=== PATIENT | female | born 1960 | race Caucasian/White ===

== ENCOUNTER → 2017-05-02 | Outpatient (CLI) | payer OTHER ==
[~2017-05-02] MED LIST: AMLO10 PO; CHOL10002 PO; INSDET100; Novolog100 UNIT/2; PRAV20 PO
== END ==
LOC: LAB SHORT 10:45
DX: E11.9 Type 2 diabetes mellitus without complications (principal)
CPT/HCPCS: 83036

== ENCOUNTER 2018-01-26 10:19 | Day surgery (SDC) | payer OTHER ==
[~2018-01-26] VITALS: Ht 175.3 cm; Wt 93.0 kg
== END 2018-01-26 12:17 | disposition home or self-care (01) ==
LOC: ORSCMMR 10:19 → ORD 11:00 → ORSCMMR 12:17
PROVIDERS: Internal Medicine Gastroenterology
PROC: 0DBK8ZX Excision of Ascending Colon, Via Natural or Artificial Opening Endoscopic, Diagnostic (ICD-10-PCS; principal; 2018-01-26 11:00)
DX: Z12.11 Encounter for screening for malignant neoplasm of colon (principal); D12.2 Benign neoplasm of ascending colon; E11.9 Type 2 diabetes mellitus without complications; Z79.4 Long term (current) use of insulin; Z79.899 Other long term (current) drug therapy
CPT/HCPCS: 82947; 88305; J7120

== ENCOUNTER → 2018-06-17 | Outpatient (CLI) | payer OTHER | END | disposition home or self-care (01) | LOC: PLD 13:40 → LAB SHORT 13:40 | DX: D22.22 Melanocytic nevi of left ear and external auricular canal (principal) | CPT/HCPCS: 88305 ==

== ENCOUNTER → 2018-07-10 | Outpatient (CLI) | payer OTHER | END | disposition home or self-care (01) | LOC: LAB SHORT 12:00 → LAB 12:00 | DX: T14.8XXA Other injury of unspecified body region, initial encounter (principal) | CPT/HCPCS: 87070; 87077; 87186; 87205 ==

== ENCOUNTER 2019-02-03 14:32 | Inpatient (IN) | payer OTHER ==
[~2019-02-03] VITALS: Ht 165.1 cm; Wt 88.2 kg
[~2019-02-03 14:32] MED LIST changes: -INSDET100; +INSDET100 SC; -Novolog100 UNIT/2; +Novolog100 UNIT/2 SC
[2019-02-03 15:19] LABS: BASOPHILS ABSOLUTE AUTO 0.06 K/mm3 (0.00-0.23); BASOPHILS PERCENT AUTO 1 % (0-2); EOSINOPHILS ABSOLUTE AUTO 0.21 K/mm3 (0.00-0.68); EOSINOPHILS PERCENT AUTO 2 % (0-6); Hematocrit 46.2 % (33.0-51.0); Hemoglobin 14.8 g/dL (11.5-16.0); IMMATURE GRAN ABSOLUTE AUTO 0.04 K/mm3 (0.00-0.10); IMMATURE GRAN PERCENT AUTO 0 % (0-1); LYMPHOCYTES ABSOLUTE AUTO 2.92 K/mm3 (0.84-5.20); LYMPHOCYTES PERCENT AUTO 30 % (21-46); MONOCYTES ABSOLUTE AUTO 0.51 K/mm3 (0.16-1.47); MONOCYTES PERCENT AUTO 5 % (4-13); Mean Corpuscular HGB 28.3 pg (26.0-34.0); Mean Corpuscular Volume 88 fL (80-100); Mean Platelet Volume 10.9 fL (9.1-12.4); NEUTROPHILS ABSOLUTE AUTO 5.86 K/mm3 (1.96-9.15); NEUTROPHILS PERCENT AUTO 61 % (41-73); Platelet Count 324 K/mm3 (150-400); RDW Coefficient Variation 12.7 % (11.7-14.2); RDW Standard Deviation 41.3 fL (35.1-46.3); Red Blood Cell Count 5.23 M/mm3 (3.80-5.20)
[2019-02-03 15:36] LABS: International Normalized Ratio 0.93; Prothrombin Time Results 9.9 Sec (9.7-11.5)
[2019-02-03 15:39] LABS: Alanine Aminotransfer (ALT/SGP 27 U/L (12-78); Albumin, Blood 3.5 g/dL (3.4-5.0); Albumin/Globulin Ratio 0.8 (0.8-1.8); Alk Phos 107 U/L (50-136); Anion Gap 6 mmol/L (6-16); Aspartate Aminotrans (AST/SGOT 11 U/L (12-37); Bilirubin, Total 0.3 mg/dL (0.1-1.0); Blood Urea Nitrogen 21 mg/dL (8-24); Bun/Creatinine Ratio 31.6 (12.0-20.0); CO2, Blood 28 mmol/L (21-32); Calcium, Blood 9.8 mg/dL (8.5-10.1); Chloride, Blood 101 mmol/L (98-108); Creatinine, Blood 0.67 mg/dL (0.40-1.00); Globulin, Blood 4.6 g/dL (2.2-4.0); Glomerular Filtration Rate >60 (60-); Glucose, Blood 419 mg/dL (70-99); Potassium, Blood 4.1 mmol/L (3.5-5.5); Sodium, Blood 135 mmol/L (136-145); Total Protein, Blood 8.1 g/dL (6.4-8.2)
[2019-02-03] MEDS ORDERED: ASPI81CH PO (20:33)
[2019-02-03] MEDS ORDERED: ACET500 PO (20:33)
--- NOTE | 2019-02-03 22:31 | NUR ---
PATIENT ARRIVED TO THE FLOOR VIA GURNEY AT 2126. SHE WAS ABLE TO WALK TO THE BED BY A COUPLE OF STEPS. SHE DENIED ANY PAIN OR DISCOMFORT. STATES SHE IS FEELING OK. SHE DOES HAVE SOME LEFT FACIAL DROOP, DIRECTOR OF MARKETING ANALYTICS WERE SLIGHTLY WEAK ON THE LEFT, DORSAL FLEXTION AND EXTENTION WERE NORMAL. BUT WHEN SHE WALKS SHE LEANS TO THE LEFT AND LEFT LEG IS WEAKER. SHE IS ALERT AND ORIENTED, PLEASANT AND COOPERATIVE. ASSESSMENT IS COMPLETE PLEASE SEE CHART. AWAITING INSULIN FROM PHARMACY. GAVE LOVENOX AND STARTED IV FLUIDS, IV WAS PATENT. WILL CONTINUE TO MONITOR.
--- NOTE | 2019-02-03 22:59 | NUR ---
SPOKE TO ABNER ORTEGA REGARDING ADMINASTRATION OF LANTUS AND HUMLOG WITH PATIENT BEING NPO. SHE SAID TO GIVE LANTUS, AND ONLY 5 UNITS OF HUMOLOG SINCE BLOOD SUGARS ARE COMING DOWN ON ITS OWN. WILL RECHECK HER AT MIDNIGHT.
--- NOTE | 2019-02-04 05:26 | NUR ---
SHIFT SUMMARY: PATIENT ARRIVED TO THE FLOOR AROUND 2130 TONIGHT. SHE WAS ADMITTED FOR CVA. SHE IS ALERT AND ORIENTED BUT HAD SEVERAL MINOR DEFICITS ON WHEN SHE CAME TO THE ROOM. SHE HAS A SLIGHT LEFT FACIAL DROOP, MOSTLY SEEN IN THE LIPS. TONGUE TO DEVIATED TO THE LEFT JUST SLIGHTLY, LEFT COMMUNITY HEALTH NURSE WAS SLIGHTLY OFF, DORSAL FLEXTION AND EXTENTION WAS NORMAL. BUT WHEN SHE GOT UP DURING HER TRANSFER NOTED SHE LEANED TO THE LEFT WHEN SHE WALKED, AND DRAGGED HER FOOT SLIGHTLY. SHE ALSO HAS DIFFICULTY SWALLOWING. BLOOD SUGARS FROM ER PRIOR TO TRANSFER WAS 419, 437, AND 365. RECHECK WHEN SHE GOT TO THE FLOOR WAS 302. ABNER TREASURY AGENT WAS NOTIFIED OF TRENDING DOWN BLOOD SUGARS AND ORDERED LANTUS WITH PATIENT NPO STATUS. SHE STATED TO GIVE ONLY 5 UNITS OF HUMOLOG AND GIVE ORDERED DOSE OF LANTUS, MONITORING EVERY 6 HOURS, KEEP NPO. GAVE DOSAGE AND ON RECHECK SHE WAS DOWN TO MID 200'S WILL CHECK THIS AM WELL. SHE HAS NOT HAD ANY FURTHER SIGNS OF A STOKE, AND STATES SHE FEELS FINE, BLOOD PRESSURE ALSO HAS BEEN MAINTAINING AT 170'S. WHICH MD IS AWARE OF, NORVASC WAS ORDERED FOR MORNING BUT DC'D IT AT THIS TIME, WANTING BLOOD PRESSURE TO MAINTAIN WHERE IT IS. PATIENT DENIED ANY CHANGES OR CONCERNS WHILE ON THE FLOOR. IV INFUSED WELL THROUGHOUT THE NIGHT, SHE DID HAVE A MINOR COUGH DUE TO SECREATIONS OFF AND ON THROUGHOUT THE NIGHT WELL. WILL REPORT TO DAY SHIFT RN.
[2019-02-04 05:48] LABS: BASOPHILS ABSOLUTE AUTO 0.05 K/mm3 (0.00-0.23); BASOPHILS PERCENT AUTO 1 % (0-2); EOSINOPHILS ABSOLUTE AUTO 0.28 K/mm3 (0.00-0.68); EOSINOPHILS PERCENT AUTO 3 % (0-6); Hematocrit 45.1 % (33.0-51.0); Hemoglobin 14.5 g/dL (11.5-16.0); IMMATURE GRAN ABSOLUTE AUTO 0.03 K/mm3 (0.00-0.10); IMMATURE GRAN PERCENT AUTO 0 % (0-1); LYMPHOCYTES ABSOLUTE AUTO 3.35 K/mm3 (0.84-5.20); LYMPHOCYTES PERCENT AUTO 41 % (21-46); MONOCYTES ABSOLUTE AUTO 0.58 K/mm3 (0.16-1.47); MONOCYTES PERCENT AUTO 7 % (4-13); Mean Corpuscular HGB 28.8 pg (26.0-34.0); Mean Corpuscular HGB Conc 32.2 g/dL (31.5-36.5); Mean Corpuscular Volume 90 fL (80-100); Mean Platelet Volume 10.5 fL (9.1-12.4); NEUTROPHILS ABSOLUTE AUTO 3.85 K/mm3 (1.96-9.15); NEUTROPHILS PERCENT AUTO 47 % (41-73); Platelet Count 297 K/mm3 (150-400); RDW Coefficient Variation 12.7 % (11.7-14.2); RDW Standard Deviation 41.8 fL (35.1-46.3); Red Blood Cell Count 5.04 M/mm3 (3.80-5.20); White Blood Cell Count 8.14 K/mm3 (4.00-11.30)
[2019-02-04 06:10] LABS: Anion Gap 6 mmol/L (6-16); Blood Urea Nitrogen 15 mg/dL (8-24); Bun/Creatinine Ratio 26.5 (12.0-20.0); CO2, Blood 29 mmol/L (21-32); Calcium, Blood 8.8 mg/dL (8.5-10.1); Chloride, Blood 105 mmol/L (98-108); Cholesterol 315 mg/dL (50-200); Creatinine, Blood 0.57 mg/dL (0.40-1.00); Glomerular Filtration Rate >60 (60-); Glucose, Blood 260 mg/dL (70-99); HDL Cholesterol 35 mg/dL (>39); LDL/HDL RATIO Unable to Calculate; Low Density Lipoprotein Chol Unable to Calculate mg/dL (0-110); Potassium, Blood 3.6 mmol/L (3.5-5.5); Sodium, Blood 140 mmol/L (136-145); Triglycerides 624 mg/dL (30-160); Very Low Density Lipoprot Chol Unable to Calculate mg/dL (6-32)
--- NOTE | 2019-02-04 12:51 | NUR ---
CALLED HOSPITALIST REPORTED GLUCOSE LAB OF 472. I ADMINISTERED 12 UNITS PER MEDIUM SLIDING SCALE AND AWAITED NEW ORDERS. HOSPITALIST CHANGED PT TO HIGH SLIDING SCALE AND FOR NURSE TO ADMINISTER INSULIN DIFFERENCE. PT ASYMPTOMATIC.
--- NOTE | 2019-02-04 15:21 | NUR ---
Echocardiogram using 0.45ml of Definity and 9.0ml of agitated saline contrast was performed.
--- NOTE | 2019-02-04 16:11 | NUR ---
SHIFT SUMMARY MRI PERFORMED TODAY, TWO ECHOS PERFORMED - ONE W/CONTRAST. TELEMETRY SHOWS SINUS RHYTHM @ 88 BPM. LR IS RUNNING @ 100 ML/HR. BLOOD GLUCOSE ELEVATED AT NOON TO 472. PT CHANGED FROM MEDIUM TO HIGH SLIDING SCALE. PERMISSIVE HTN IS BEING ALLOWED TODAY DUE TO STROKE. PHYSICAL THERAPY NOTED LEFT SIDED WEAKNESS W/AMBULATION. BLOOD GLUCOSE DOWN TO 186 AT 1630 HRS. IN STUDYING THIS TYPE OF STROKE I DID NOTE IT CAN EFFECT EMOTIONAL HEALTH AND MOTIVATION. SHE DOES SEEM DETACHED FROM HER SITUATION IN MY OPINION.
--- NOTE | 2019-02-04 19:25 | NUR ---
PATIENT REQUESTED A SLEEP AID WHILE I WAS ASSESSING HER. SHE HAD NONE ORDERED. DR PALACIOS WAS CALLED AND A SLEEP AID REQUESTED. NEW ORDERS FOR MELATONIN 5MG PO X 1 DOSE GIVEN.
--- NOTE | 2019-02-05 04:12 | NUR ---
SHIFT SUMMARY PATIENT IS A/OX4. ABLE TO MAKE NEEDS KNOWN AND FOLLOW DIRECTIONS HOWEVER IS NOTED TO BE FORGETFUL. COOPERATIVE WITH STAFF. DENIES PAIN AND DISCOMFORT. NO ACUTE CHANGES NOTED OR REPORTED THIS SHIFT. WILL CONTINUE TO MONITOR AND PROVIDE CARE NEEDED.
[2019-02-05 05:56] LABS: Anion Gap 4 mmol/L (6-16); Blood Urea Nitrogen 12 mg/dL (8-24); Bun/Creatinine Ratio 20.5 (12.0-20.0); CO2, Blood 31 mmol/L (21-32); Calcium, Blood 8.8 mg/dL (8.5-10.1); Chloride, Blood 103 mmol/L (98-108); Creatinine, Blood 0.59 mg/dL (0.40-1.00); Glomerular Filtration Rate >60 (60-); Glucose, Blood 219 mg/dL (70-99); Potassium, Blood 3.6 mmol/L (3.5-5.5); Sodium, Blood 138 mmol/L (136-145)
[2019-02-05] MEDS ORDERED: BISA5EC PO (11:52)
[2019-02-05] MEDS ORDERED: CLOP75 PO (11:52)
[2019-02-05] MEDS ORDERED: ONDA4 PO (11:53)
--- NOTE | 2019-02-05 13:50 | NUR ---
PT ALERT AND ORIENTED PRIOR TO DISCHARGE. PT INDEPENDENT IN ROOM. IV REMOVED AND PT SHOWERED PRIOR TO DISCHARGE. PT DISCHARGED TO HOME WITH , [facility] PT TO VEHICLE BY WHEELCHAIR. PT PROVIDED WITH DISCHARGE INSTRUCTIONS AND HOME MEDICATIONS. PT VERBALIZED UNDERSTANDING OF DISCHARGE INFORMATION.
== END 2019-02-05 13:43 | disposition home health service (06) | DRG 66 ==
LOC: ER 14:32 → MEDS 14:33
PROVIDERS: Internal Medicine; Nurse Practitioner Acute Care; Physician Assistant; ADMIT Internal Medicine
DX: I63.9 Cerebral infarction, unspecified (principal); R29.810 Facial weakness; I10 Essential (primary) hypertension; E78.5 Hyperlipidemia, unspecified; K02.9 Dental caries, unspecified; E11.65 Type 2 diabetes mellitus with hyperglycemia; G43.909 Migraine, unspecified, not intractable, without status migrainosus; G44.89 Other headache syndrome; Z79.4 Long term (current) use of insulin; Z79.899 Other long term (current) drug therapy
CPT/HCPCS: 36415; 70450; 70496; 70498; 70551; 80048; 80053; 80061; 82947; 83036; 85025; 85610; 92610; 93005; 93010; 96360; 96361; 96372; 97162; 97165; 97530; 97535; 99285-25; C8929; G0378; J1650; J7120; Q9957; Q9967

== ENCOUNTER → 2019-02-26 | Outpatient (CLI) | payer OTHER ==
[~2019-02-26] MED LIST changes: +ACET500 PO; +ASPI81CH PO; +BISA5EC PO; +CLOP75 PO; +ONDA4 PO
[2019-02-28 13:06] LABS: CHLAMYDIA TRACHOMATIS, NAA Negative (Negative); NEISSERIA GONORRHOEAE, NAA Negative (Negative)
[2019-03-02 15:07] LABS: HPV 16 Negative (Negative); HPV 18 Negative (Negative); HPV OTHER HR TYPES Negative (Negative)
== END | disposition home or self-care (01) ==
LOC: LAB SHORT 18:38 → LAB 18:38
PROVIDERS: Nurse Practitioner Family
DX: Z01.419 Encounter for gynecological examination (general) (routine) without abnormal findings (principal)
CPT/HCPCS: 87070; 87077; 87186; 87205; 87491; 87591; 87624; G0123

== ENCOUNTER 2019-06-21 12:50 | Emergency (ER) | payer OTHER ==
[~2019-06-21] VITALS: Ht 165.1 cm; Wt 83.5 kg
[~2019-06-21 12:50] MED LIST changes: -ASPI81CH PO; +Aspirin EC81 MG PO; -PRAV20 PO; +Pravastatin Sod80 MG PO
[2019-06-21 13:47] LABS: Source, Urine Clean Catch
[2019-06-21 13:56] LABS: BASOPHILS ABSOLUTE AUTO 0.05 K/mm3 (0.00-0.23); BASOPHILS PERCENT AUTO 1 % (0-2); EOSINOPHILS ABSOLUTE AUTO 0.26 K/mm3 (0.00-0.68); EOSINOPHILS PERCENT AUTO 3 % (0-6); Hematocrit 41.5 % (33.0-51.0); Hemoglobin 13.2 g/dL (11.5-16.0); IMMATURE GRAN ABSOLUTE AUTO 0.03 K/mm3 (0.00-0.10); IMMATURE GRAN PERCENT AUTO 0 % (0-1); LYMPHOCYTES ABSOLUTE AUTO 3.28 K/mm3 (0.84-5.20); LYMPHOCYTES PERCENT AUTO 39 % (21-46); MONOCYTES ABSOLUTE AUTO 0.55 K/mm3 (0.16-1.47); MONOCYTES PERCENT AUTO 7 % (4-13); Mean Corpuscular HGB 28.9 pg (26.0-34.0); Mean Corpuscular HGB Conc 31.8 g/dL (31.5-36.5); Mean Corpuscular Volume 91 fL (80-100); NEUTROPHILS ABSOLUTE AUTO 4.16 K/mm3 (1.96-9.15); NEUTROPHILS PERCENT AUTO 50 % (41-73); Platelet Count 376 K/mm3 (150-400); RDW Coefficient Variation 12.8 % (11.7-14.2); RDW Standard Deviation 42.2 fL (35.1-46.3); Red Blood Cell Count 4.57 M/mm3 (3.80-5.20); White Blood Cell Count 8.33 K/mm3 (4.00-11.30)
[2019-06-21 14:01] LABS: Bilirubin, Urine Neg (Neg); Blood, Urine 2+ (Neg); Glucose Qualitative, Urine Neg (Neg); Ketones, Urine Neg (Neg); Leukocyte Esterase, Urine Neg (Neg); Nitrite, Urine Neg (Neg); Protein, Urine Neg (Neg); Specific Gravity, Urine 1.015 (1.003-1.022); Urobilinogen, Urine NORM (Normal)
[2019-06-21 14:04] LABS: Appearance, Urine Clear (Clear); Color, Urine Yellow (P-Yellow)
[2019-06-21 14:09] LABS: International Normalized Ratio 0.99; Prothrombin Time Results 10.6 Sec (9.7-11.5)
[2019-06-21 14:10] LABS: Amorphous Light (0-Heavy); Bacteria Few /hpf; Red Blood Cells, Urine 0-2 /hpf (0-2); Squamous Epithelial Cells Rare /hpf (Few); White Blood Cells, Urine 0-2 /hpf (0-5)
[2019-06-21 14:16] LABS: Alanine Aminotransfer (ALT/SGP 28 U/L (12-78); Albumin, Blood 3.1 g/dL (3.4-5.0); Albumin/Globulin Ratio 0.7 (0.8-1.8); Alk Phos 89 U/L (50-136); Anion Gap 7 mmol/L (6-16); Aspartate Aminotrans (AST/SGOT 18 U/L (12-37); Bilirubin, Total 0.3 mg/dL (0.1-1.0); Blood Urea Nitrogen 18 mg/dL (8-24); Bun/Creatinine Ratio 25.3 (12.0-20.0); CO2, Blood 23 mmol/L (21-32); Chloride, Blood 112 mmol/L (98-108); Creatinine, Blood 0.71 mg/dL (0.40-1.00); Globulin, Blood 4.2 g/dL (2.2-4.0); Glomerular Filtration Rate >60 (60-); Glucose, Blood 169 mg/dL (70-99); Sodium, Blood 142 mmol/L (136-145); Total Protein, Blood 7.3 g/dL (6.4-8.2)
[2019-06-21] MEDS ORDERED: ZOLP5 PO (17:59)
[2019-06-22] MEDS ORDERED: INSDET100 SC (14:20)
[2019-06-22] MEDS ORDERED: ZOLP5 PO (14:20)
[2019-06-22] MEDS ORDERED: Aspirin EC81 MG PO (14:22)
[2019-06-22] MEDS ORDERED: DULCOLAX5 MG PO (17:02)
[2019-06-22] MEDS ORDERED: MECL12.5 PO (17:03)
[2019-06-22] MEDS ORDERED: MELATONIN 5 MG1 EACH PO (17:04)
[2019-06-22] MEDS ORDERED: GABA100 PO (17:05)
== END 2019-06-21 15:41 | disposition home or self-care (01) ==
LOC: ER 12:50
PROVIDERS: Emergency Medicine; Physician Assistant
DX: R53.1 Weakness (principal); Z79.899 Other long term (current) drug therapy; Z79.82 Long term (current) use of aspirin; Z79.4 Long term (current) use of insulin; Z86.73 Personal history of transient ischemic attack (TIA), and cerebral infarction without residual deficits
CPT/HCPCS: 36415; 70450; 71045; 80053; 81001; 82947; 85025; 85610; 93005; 93010; A9270

== ENCOUNTER 2019-06-22 10:47 | Inpatient (IN) | payer OTHER ==
[~2019-06-22] VITALS: Ht 165.1 cm; Wt 87.7 kg
[~2019-06-22 10:47] MED LIST changes: +ATOR80 PO; -CHOL10002 PO; -Pravastatin Sod80 MG PO; +VITAMIN D31000 UNI1 PO; +ZOLP5 PO
[2019-06-22 11:12] LABS: BASOPHILS ABSOLUTE AUTO 0.04 K/mm3 (0.00-0.23); BASOPHILS PERCENT AUTO 1 % (0-2); EOSINOPHILS ABSOLUTE AUTO 0.16 K/mm3 (0.00-0.68); EOSINOPHILS PERCENT AUTO 2 % (0-6); Hemoglobin 12.7 g/dL (11.5-16.0); IMMATURE GRAN ABSOLUTE AUTO 0.03 K/mm3 (0.00-0.10); IMMATURE GRAN PERCENT AUTO 0 % (0-1); LYMPHOCYTES ABSOLUTE AUTO 2.87 K/mm3 (0.84-5.20); LYMPHOCYTES PERCENT AUTO 33 % (21-46); MONOCYTES ABSOLUTE AUTO 0.51 K/mm3 (0.16-1.47); MONOCYTES PERCENT AUTO 6 % (4-13); Mean Corpuscular HGB 28.7 pg (26.0-34.0); Mean Corpuscular HGB Conc 31.8 g/dL (31.5-36.5); Mean Corpuscular Volume 90 fL (80-100); Mean Platelet Volume 9.9 fL (9.1-12.4); NEUTROPHILS ABSOLUTE AUTO 5.08 K/mm3 (1.96-9.15); NEUTROPHILS PERCENT AUTO 59 % (41-73); Platelet Count 362 K/mm3 (150-400); RDW Coefficient Variation 12.7 % (11.7-14.2); RDW Standard Deviation 42.1 fL (35.1-46.3); Red Blood Cell Count 4.43 M/mm3 (3.80-5.20); White Blood Cell Count 8.69 K/mm3 (4.00-11.30)
[2019-06-22 11:23] LABS: Alanine Aminotransfer (ALT/SGP 25 U/L (12-78); Albumin, Blood 3.1 g/dL (3.4-5.0); Albumin/Globulin Ratio 0.7 (0.8-1.8); Alk Phos 87 U/L (50-136); Anion Gap 7 mmol/L (6-16); Aspartate Aminotrans (AST/SGOT 17 U/L (12-37); Bilirubin, Total 0.4 mg/dL (0.1-1.0); Blood Urea Nitrogen 17 mg/dL (8-24); Bun/Creatinine Ratio 22.4 (12.0-20.0); CO2, Blood 24 mmol/L (21-32); Calcium, Blood 9.1 mg/dL (8.5-10.1); Chloride, Blood 112 mmol/L (98-108); Creatinine, Blood 0.76 mg/dL (0.40-1.00); Globulin, Blood 4.2 g/dL (2.2-4.0); Glomerular Filtration Rate >60 (60-); Glucose, Blood 100 mg/dL (70-99); Potassium, Blood 3.9 mmol/L (3.5-5.5); Sodium, Blood 143 mmol/L (136-145); Total Protein, Blood 7.3 g/dL (6.4-8.2)
[2019-06-22] MEDS ORDERED: INSDET100 SC (14:20)
[2019-06-22] MEDS ORDERED: ZOLP5 PO (14:20)
[2019-06-22] MEDS ORDERED: Aspirin EC81 MG PO (14:22)
--- NOTE | 2019-06-22 16:30 | NUR ---
PT ARRIVED TO ROOM 306 FROM ED WITH FAMILY IN ATTENDENCE. TRANSPORT ATTENDENT REPORTED PTS BLOOD SUGAR WAS 57 JUST PRIOR TO COMING UP AND HE GAVE HER ORANGE JUICE. WILL RECHECK SOON.
[2019-06-22] MEDS ORDERED: DULCOLAX5 MG PO (17:02)
[2019-06-22] MEDS ORDERED: MECL12.5 PO (17:03)
[2019-06-22] MEDS ORDERED: MELATONIN TR 51 EAC2 PO (17:04)
[2019-06-22] MEDS ORDERED: GABA100 PO (17:05)
--- NOTE | 2019-06-22 18:39 | NUR ---
SHIFT SUMMARY ABLE TO ANSWER QUESTIONS BUT SPEECH SLURRED AND FAMILY ASSISTS WITH QUESTIONS. R SIDE WEAKER THAN L WITH HAND TIRE DESIGN ENGINEER. REPORTS BEING HUNGRY BUT CURRENTLY NPO AND NEEDS REMINDING OF THIS. SPOKE WITH MD ABOUT LOW BLOOD SUGARS AND NO TREATMENT.
--- NOTE | 2019-06-22 20:00 | NUR ---
2000-ASSUMED CARE OF THE PATIENT. CONSTANTINE IS AOX3 PLEASANT AND COOPERATIVE. IV INFUSING INTO LEFT AC FEILD START. DENIES ANY PAIN OR DISCOMFORT. HAS RIGHT SIDED WEAKNESS, GREATER IN THE UPPER ARMS THEN IN THE LEGS. SHE IS ABLE TO RESTAURANT DELIVERY DRIVER SLIGHTLY. SMILE WITH DROOP TO THE RIGHT, DORSAL FLEXTION AND EXTENTION IS EQUAL. REPORTS THIS IS AN INCREASE FROM HER PREVIOUS STROKE SHE HAS HAD. SPEECH IS SLURRED. BLOOD SUGARS HAVE BEEN RUNNING LOW ALL DAY. WILL MONITOR THROUGHOUT THE NIGHT. CALL LIGHT IN REACH.
--- NOTE | 2019-06-23 00:35 | NUR ---
BLOOD SUGAR IS NOW 69, CALLED ABNER TACK PICKER REGARDING TREATMENT PLAN FOR HYPOGLYCEMIA. NEW ORDERS NOTED FOR INCREASE IN RATE FOR IV FLUIDS TO 100ML/HR AND GLUCOSE IV, HYPOGLYCEMIA TX. GOT OFF PHONE AND INCREASED IV FLUIDS TO 100ML/HR. ASSISTED PATIENT ONTO BEDPAN, CALL LIGHT GIVEN.
[2019-06-23 05:05] LABS: BASOPHILS ABSOLUTE AUTO 0.06 K/mm3 (0.00-0.23); BASOPHILS PERCENT AUTO 1 % (0-2); EOSINOPHILS ABSOLUTE AUTO 0.28 K/mm3 (0.00-0.68); EOSINOPHILS PERCENT AUTO 3 % (0-6); Hematocrit 41.8 % (33.0-51.0); Hemoglobin 13.4 g/dL (11.5-16.0); IMMATURE GRAN ABSOLUTE AUTO 0.01 K/mm3 (0.00-0.10); IMMATURE GRAN PERCENT AUTO 0 % (0-1); LYMPHOCYTES ABSOLUTE AUTO 4.25 K/mm3 (0.84-5.20); LYMPHOCYTES PERCENT AUTO 38 % (21-46); MONOCYTES ABSOLUTE AUTO 0.76 K/mm3 (0.16-1.47); MONOCYTES PERCENT AUTO 7 % (4-13); Mean Corpuscular HGB 28.5 pg (26.0-34.0); Mean Corpuscular HGB Conc 32.1 g/dL (31.5-36.5); Mean Corpuscular Volume 89 fL (80-100); NEUTROPHILS PERCENT AUTO 52 % (41-73); Platelet Count 383 K/mm3 (150-400); RDW Coefficient Variation 12.4 % (11.7-14.2); RDW Standard Deviation 40.8 fL (35.1-46.3); White Blood Cell Count 11.16 K/mm3 (4.00-11.30)
[2019-06-23 05:38] LABS: Alanine Aminotransfer (ALT/SGP 29 U/L (12-78); Albumin, Blood 3.3 g/dL (3.4-5.0); Albumin/Globulin Ratio 0.7 (0.8-1.8); Alk Phos 95 U/L (50-136); Anion Gap 5 mmol/L (6-16); Aspartate Aminotrans (AST/SGOT 19 U/L (12-37); Bilirubin, Total 0.7 mg/dL (0.1-1.0); Blood Urea Nitrogen 9 mg/dL (8-24); Bun/Creatinine Ratio 16.8 (12.0-20.0); CHOL/HDL RATIO 8.1; CO2, Blood 25 mmol/L (21-32); Calcium, Blood 8.8 mg/dL (8.5-10.1); Chloride, Blood 111 mmol/L (98-108); Cholesterol 258 mg/dL (50-200); Creatinine, Blood 0.54 mg/dL (0.40-1.00); Globulin, Blood 4.5 g/dL (2.2-4.0); Glomerular Filtration Rate >60 (60-); Glucose, Blood 104 mg/dL (70-99); HDL Cholesterol 32 mg/dL (>39); LDL/HDL RATIO 5.2; Low Density Lipoprotein Chol 167 mg/dL (0-110); Potassium, Blood 3.3 mmol/L (3.5-5.5); Sodium, Blood 141 mmol/L (136-145); Total Protein, Blood 7.8 g/dL (6.4-8.2); Triglycerides 295 mg/dL (30-160); Very Low Density Lipoprot Chol 59 mg/dL (6-32)
--- NOTE | 2019-06-23 06:29 | NUR ---
SHIFT SUMMARY: CONSTANTINE HAS HAD A ROUGH NIGHT, SHE HAS SEVERE FREQUENT URINATION THAT HAS KEPT HER UP ALL NIGHT. SHE LITERALLY HAS VOIDED ABOUT EVERY 30MIN THIS SHIFT. SHE IS ABLE TO USE THE CALL LIGHT FOR THE BED HINES. SHE STATES THIS IS HER NORM AT HOME. ATTENDS HAS REMAINED DRY. BLOOD SUGARS HAVE BEEN ON THE LOW SIDE RANGING 69-104. ABNER ORTEGA WAS CALLED FOR HYPOGLYCEMIA TREATMENT, ORDERS WERE OBTAINED, SHE WAS ALSO INFORMED OF RIGHT ARM SPASMS THIS SHIFT. PATIENT REPORTS THE SPASMS HAS BEEN FOR A WEEK NOW BUT GET PAINFUL. FLEXERIAL WAS ORDERED X1. THIS HELPED TO RELEIVE THEM BUT STARTED BACK UP THIS AM. SHE REPORTS PAIN ALONG WITH THE SPASMS. GAVE WARM BLANKETS THAT HELPED. NO INSULIN WAS GIVEN TONIGHT. BLOOD PRESSURE WAS SLIGHTLY ON THE HIGH SIDE BUT MD WAS NOTIFIED OF IT. NO OTHER CHANGES OCCURRED THIS SHIFT.
--- NOTE | 2019-06-23 18:33 | NUR ---
SHIFT SUMMARY PT UP WITH PT/OT AND WORKED WITH KENNEL WORKER. TOLERATING A MECHANICAL SOFT DIET. FAMILY REPORTS PT DOESN'T TOLERATE DAIRY OF ANY KIND. ADJUSTED DIET ACCORDINGLY. 1-2 PERSON ASSIST WITH TRANSFERS FROM COMMODE TO BED AND BACK AGAIN USING A GAIT BELT. R HAND WAS WEAKER THAN YESTERDAY WHEN TESTED. SPEECH REMAINS SLUURED. BLADDER SCANNED AFTER VOIDING 200ML AND HAD 243 IN SCAN. MD NOTIFIED. WAS SCANNED LAST EVENING FOR 285 PVR SO APPEARS TO BE LESS TODAY. NO SPASMS OR CRAMPS SEEN ON R SIDE.
--- NOTE | 2019-06-24 04:07 | NUR ---
0259 PT TRANSFERED TO ROOM 346 FROM [facility]. REPORT CALLED TO JESSICA KIRK. PT IS AAOX4. RESP E/U. VSS. APPEARS IN NO ACUTE DISTRESS. PT IS ADMITTED WITH STROKE AND HAS WEAKNESS TO R SIDE. SHE IS IMPULSIVE AND WAS REPEATEDLY ATTEMPTING TO CLIMB OUT OF BED. R LEG WEAKNESS. SHE IS A FALL RISK. PT COMLAINED THROUGHOUT THE NIGHT OF NEEDING TO VOID. EACH TIME SHE ATTEMPTED TO VOID SHE ONLY PRODUCED ABOUT 50ML. BLADDER SCANNED AND FOUND SHE HAD 471 POST VOID. OBTAINED ORDER FOR PRN BLADDER SCAN AND STRAIGHT CATH. PT THEN ATTEMPTED TO VOID AGAIN PRODUCING 50ML THEN STRAIGHT CATH'D PT AND OBTAINED 350ML. AFTER THIS PT CONTINUED TO TRY TO CLIMB OUT OF BED. TRANSFERED.
[2019-06-24 05:07] LABS: Hematocrit 40.6 % (33.0-51.0); Hemoglobin 13.3 g/dL (11.5-16.0); Mean Corpuscular HGB 28.7 pg (26.0-34.0); Mean Corpuscular HGB Conc 32.8 g/dL (31.5-36.5); Mean Corpuscular Volume 88 fL (80-100); Mean Platelet Volume 9.9 fL (9.1-12.4); Platelet Count 350 K/mm3 (150-400); RDW Coefficient Variation 12.3 % (11.7-14.2); RDW Standard Deviation 39.4 fL (35.1-46.3); Red Blood Cell Count 4.64 M/mm3 (3.80-5.20); White Blood Cell Count 9.47 K/mm3 (4.00-11.30)
[2019-06-24 05:41] LABS: Albumin, Blood 3.2 g/dL (3.4-5.0); Anion Gap 7 mmol/L (6-16); Blood Urea Nitrogen 13 mg/dL (8-24); Bun/Creatinine Ratio 20.2 (12.0-20.0); CO2, Blood 24 mmol/L (21-32); Calcium, Blood 8.7 mg/dL (8.5-10.1); Chloride, Blood 108 mmol/L (98-108); Creatinine, Blood 0.64 mg/dL (0.40-1.00); Glomerular Filtration Rate >60 (60-); Glucose, Blood 200 mg/dL (70-99); Phosphorus, Blood 3.5 mg/dL (2.5-4.9); Potassium, Blood 3.6 mmol/L (3.5-5.5); Sodium, Blood 139 mmol/L (136-145)
--- NOTE | 2019-06-24 06:01 | NUR ---
PATIENT TRANSFERRED FROM ROOM 306. PT IS AOX3 BUT WITH CONFUSION. SHE IS IMPULSIVE AND WANTS TO GET OOB FREQUENTLY TO USE THE COMMODE. UNFORTUNATELY HER RIGHT LEG SHE IS UNABLE TO LIFT IT TO TAKE A STEP. SHE ALSO SEEMS VERY BOBBLE-HEADED WHEN SITTING ON THE COMMODE. SHE BECAME FATIGUED SHE VOIDED 200 AT ABOUT 330 AND ABOUT 150ML AT 0540 AM
--- NOTE | 2019-06-24 07:30 | NUR ---
PT. LYING IN BED A&O. HAS SLURRED SPEECH WITH RIGHT-SIDED FACIAL DROOP. TONGUE DEVIATES TO THE RIGHT. BUE UNEQUAL BILATERALLY RIGHT WEAKER THAN THE LEFT. UNABLE TO USE RUE TO FEED SELF. PT. PLEASANT AND COOPERATIVE.
--- NOTE | 2019-06-24 15:27 | NUR ---
Echocardiogram completed.
--- NOTE | 2019-06-24 15:28 | NUR ---
Echocardiogram completed.
--- NOTE | 2019-06-24 18:11 | NUR ---
PT. UP IN CHAIR FOR DINNER. GANG PUSHER FEEDING PT. FAMILY PRESENT IN ROOM. PT. ABLE TO E COMMERCE MARKETING ANALYST FWW WITH RIGHT HAND THIS AFTERNOON. PT. STARTED HAVING MUSCLE SPASMS ON HER RIGHT SIDE, FLEXERIL GIVEN AND RIGHT SIDE WRAPPED WITH WARMED BLANKET. PT. HAS VOIDED SEVERAL TIMES TODAY AND BLADDER SCANS SHOW LESS THAN 200.
--- NOTE | 2019-06-25 04:43 | NUR ---
COTTON WEIGHER SUMMARY NO ACUTE CHANGES THIS SHIFT. PT AAOX3 AND PLEASANT. STILL HAVING SOME R SIDED WEAKNESS WITH FACIAL DROOP. COMMERCIAL INTELLIGENCE MANAGER STRENGTH NOTICABLY WEAKER BUT MOVEMENT/STRENGTH OF LEGS/FEET IMPROVED. PT STILL A STRONG 2 PERSON ASSIST WITH AGAIT BELT AND FWW. PT SHUFFLES WHEN AMBULATING AND REQUIRES FREQUENT VERBAL CUES. PT HAS USED THE BED HINES SEVERAL TIMES TONIGHT AND CONTINUES TO HAVE TO URINATE FREQUENTLY. VSS, WILL CONTINUE TO MONITOR.
--- NOTE | 2019-06-25 07:45 | NUR ---
PT QUITE PLEASANT TALKATIVE. SPEACH IS SLURRED, HARD TO UNDERSTAND. FULL SENTENCES, A/O X3 , RT SIDE DROOP, RT SIDE WEAKNESS ARMS AND LEGS. GROSS MOVEMENT. H/R REG, NO MURMER NOTED PER TELE NSR AT 92, LUNGS CLEAR, RESP EASY,, UNLABORED. ON RA. BT X4 LAST BM YET PER PT. NORMAL. VOIDS BSC WITH 2 MAX ASSIST . BED IN LOW POSITION, CALL LITE IN REACH. SOME IMPULSIVITY REPORTED, BED ALARM ON FOR SAFETY
--- NOTE | 2019-06-25 13:19 | NUR ---
PT CBG 253 SHOULD BE 4 U SHORT ACTING INSULIN. PT NPO FOR PROCEDURE. CALLED DR HEBERT. ORDER FOR 2U. DONE
--- NOTE | 2019-06-25 15:16 | NUR ---
PT TO H/CTR FOR ESTHER
--- NOTE | 2019-06-25 16:13 | NUR ---
PT TOLERATED ESTHER PROCEDURE WELL. VSS. NADN. PT DENIES NEEDS. PT AXO X4. REPORT TO KATHYA MITCHELL RN TO ASSUME CARE. FULL REPORT CALLED TO VINICIUS GIANG RN WITH [facility].
--- NOTE | 2019-06-25 18:50 | NUR ---
PT PLEASANT TODAY WENT FOR ESTHER AT 1510. RETURNED AT 1630 REPORT FROM KASI KIRK. H/CENTER.PT DID WELL.FULLY ALERT ORIENT. VSS PT CONTINUES TO SLUR/GARBLE WORDS. QUITE TALKATIVE. FAMILY IN ROOM THIS VERONICA. DENIES PAIN. PASSED BEDSIDE SWALLOW AFTER PROCEDURE. EATING [facility] SOFT DIET TONIGHT. TAKING TIME. SITTING UP STRAIGHT FOR PRECAUTIONS. NO OTHER CONCERNNS AT THIS TIME BED IN LOW POSITION, CALL LITE IN [facility], CALLS APPROP
--- NOTE | 2019-06-26 04:45 | NUR ---
TRAVEL ACCOMMODATION INSPECTOR SUMMARY NO ACUTE CHANGES THIS SHIFT. PT AAOX4 AND VERY PLEASANT. SAP BASIS CONSULTANT STRENGTH STILL WEAK ON R SIDE BUT DOES SEEM SLIGHTLY IMPROVED. PT STATES SHE WAS ABLE TO AMBULATE A BIT EASIER DURING DAY SHIFT COMPARED TO YESTERDAY. VSS, WILL CONTINUE TO MONITOR.
[2019-06-26 06:04] LABS: BASOPHILS ABSOLUTE AUTO 0.07 K/mm3 (0.00-0.23); BASOPHILS PERCENT AUTO 1 % (0-2); EOSINOPHILS ABSOLUTE AUTO 0.39 K/mm3 (0.00-0.68); EOSINOPHILS PERCENT AUTO 4 % (0-6); Hematocrit 41.9 % (33.0-51.0); Hemoglobin 13.8 g/dL (11.5-16.0); IMMATURE GRAN ABSOLUTE AUTO 0.03 K/mm3 (0.00-0.10); IMMATURE GRAN PERCENT AUTO 0 % (0-1); LYMPHOCYTES ABSOLUTE AUTO 4.02 K/mm3 (0.84-5.20); LYMPHOCYTES PERCENT AUTO 39 % (21-46); MONOCYTES ABSOLUTE AUTO 0.73 K/mm3 (0.16-1.47); MONOCYTES PERCENT AUTO 7 % (4-13); Mean Corpuscular HGB 29.4 pg (26.0-34.0); Mean Corpuscular HGB Conc 32.9 g/dL (31.5-36.5); Mean Corpuscular Volume 89 fL (80-100); Mean Platelet Volume 10.1 fL (9.1-12.4); NEUTROPHILS ABSOLUTE AUTO 4.97 K/mm3 (1.96-9.15); NEUTROPHILS PERCENT AUTO 49 % (41-73); Platelet Count 386 K/mm3 (150-400); RDW Coefficient Variation 12.4 % (11.7-14.2); RDW Standard Deviation 40.7 fL (35.1-46.3); White Blood Cell Count 10.21 K/mm3 (4.00-11.30)
[2019-06-26 06:44] LABS: Anion Gap 8 mmol/L (6-16); Blood Urea Nitrogen 17 mg/dL (8-24); Bun/Creatinine Ratio 21.1 (12.0-20.0); CO2, Blood 25 mmol/L (21-32); Calcium, Blood 9.3 mg/dL (8.5-10.1); Chloride, Blood 109 mmol/L (98-108); Creatinine, Blood 0.81 mg/dL (0.40-1.00); Glomerular Filtration Rate >60 (60-); Glucose, Blood 129 mg/dL (70-99); Potassium, Blood 3.9 mmol/L (3.5-5.5); Sodium, Blood 142 mmol/L (136-145)
--- NOTE | 2019-06-26 08:00 | NUR ---
PT PLEASANT COOP A.O. DENIES PAIN AT THIS TIME. PT CHEERFUL TALKATIVE. SOME GARBLED SLURRED SPEACH, IMPROVED FROM YEST. WEAKNESS ON RT. MOVES LEG AND FOOT UP FROM BED . RT HAND AND ARM IS MORE GROSS MOVEMENT. SQEEZE STRENGTH PERHAPS 1/3 TO 1/4 OF LEFT. SOME RT DROOP FACIAL. H/R REG, NO MURMER NOTED. PER TELE NSRAT 88. LUNGS CLEAR, RESP EASY UNLABORED. ON R.A. BT X4 LAST BM YEST PER PT. VOIDS 2 MAX ASST WITH GAIT BELT BSC. BED IN LOW POSITION,C ALL LITE IN [facility], CALLS APPROP. BED ALARM ON FOR SAFETY FOR IMPULSIVITY
--- NOTE | 2019-06-26 12:49 | NUR ---
CALLED DR HEBERT. ADVISED DR SHAYLEE Christopher/Maria Del Carmen ASA THIS AM. HE RESTARTING. IS AWARE AND HAS BEEN DISCUSSED. OKAY TO RESTART
--- NOTE | 2019-06-26 17:36 | NUR ---
PT PLEASANT COOP A/O. GAVE WASH CLOTH TO KEEP WORKING SQUEEZING RT HAND. REMAINS QUITE TALKATIVE. CONTINUES TO HAVE SOME GARBLED/SLURRED SPEACH. INDICATES IMPROVEMENT NOTED. MORE CLEAR SPEACH. ENCOURAGED EXERCISING AND PUSHING TO GET MORE HAND MOVEMENT. SHE WANTS MUCH IMPROVEMENT POSSIBLE. PRESENTS GOOD ATTITUDE. VERY PLEASANT FAMILY. NO OTHER CONCERNS AT THIS TIME. BED IN LOW POSITION, CALL LITE IN REACH, CALLS APPROP.BED ALARM ON FOR SAFETY FOR IMPULSIVITY
--- NOTE | 2019-06-27 04:47 | NUR ---
SHIFT SUMMARY PT HAS HAD A RESTFUL NIGHT. STILL WITH RIGHT SIDED WEAKNESS AND OCCASIONAL MUSCLE SPASMS IN THE RIGHT ARM. PT IS ABLE TO ROLL WELL ON AND OFF THE BEDPAN. SHE IS ALSO ABLE TO LIFT HIPS. HAS NOT GOTTEN OOB. SPEECH IS STILL SLURRED. PT A/OX4, NO ACUTE CHANGES IN NEURO ASSESSMENT. PT FEELS THAT SHE NEEDS STOOL SOFTNERS. HOWEVER, SHE HAS HAD TWO SMALL SOFT BM'S THIS SHIFT. WILL NOTIFY DAYSHIFT RN FOR ADDITIONAL FOLLOW UP. ASSESSMENT UNCHANGED. BED IN LOWEST POSITION, CALL LIGHT WITHIN REACH. WILL CONTINUE TO MONITOR AND REPORT TO ONCOMING RN.
--- NOTE | 2019-06-27 07:30 | NUR ---
PT PLEASANT COOP, CONTINUES TO TALK MUCH. CONTINUES TO HAVE SLURRED/GARBLED SPEACH. MUCH SAME YEST. RT HAND WEAK, PERHAPS 10 % CLOTH BOOKER COMPARED TO LEFT. CAN CLOSE HAND SOME, BUT VERY LITTLE. GAVE PT WASHCLOTH ROLLED UP TO WORK AIR VICE MARSHAL ON. CAN LIFT ARM SOME. GROSS MOVEMENT ONLY. LEG BETTER THAN ARM FOR STRENGTH. PT ABLE AMBULATE WITH 2 MAX ASST TO BSC OR CHAIR LAST VERONICA. H/R REG, NO MURMER NOTED. PER TELE: NSR AT 91. LUNGS CLEAR RESP EASY, UNLABORED ON R.A. BT X4 LAST BM YST. VOIDS PER BSC, 2 MAX ASST TO STAND WITH FWW. CAN USE BEDPAN. BED IN LOW POSITION, CALL LITE IN REACH, CALLS APPROP, BED ALARM ON FOR SAFETY FOR IMPULSIVITY
--- NOTE | 2019-06-27 17:50 | NUR ---
PT PLEASANT TODAY. DENIES PAIN. FAMILY IN THIS AFTERNOON. RT HEEL FINISHER REMAINS QUITE WEAK PERHAPS 10% STRENGTH OF LEFT. VERY WEAK TO CLOSE. REMAINS GARBLED SLURRED SPEACH. BUT QUITE TALKATIVE. 2 ASST TO CHAIR FOR MEALS. NO OTHER CONCERNS AT THIS TIME. BED IN LOW POSITION, CALL LITE IN REACH, CALLS APPROP
--- NOTE | 2019-06-28 04:33 | NUR ---
SHIFT SUMMARY PT HAS RESTED OFF AND ON THIS SHIFT. OCCASIONAL MUSCLE SPASMS IN RIGHT ARM RELIEVED WITH FLEXERIL. PT HAS BEEN OOB THIS SHIFT 2PA TO THE [facility] THERE CONTINUES TO BE SIGNIFICANT WEAKNESS TO RIGHT SIDE. GROSS MOVEMENT TO RIGHT SIDE AND WEAK HAND TOUCH UP PAINTER IN RIGHT HAND. PT DRAGS RIGHT FOOT WHEN OOB. PT SPEECH REMAINS SLURRED AND GARBLED. SHE A/OX4. HYPERTENSIVE, TRENDING AROUND HER BASELINE WITH RECHECKS. NO ACUTE CHANGES TO REPORT OVERNIGHT. BED IN LOWEST POSITION, CALL LIGHT WITHIN REACH. WILL CONTINUE TO MONITOR AND REPORT TO ONCOMING RN.
--- NOTE | 2019-06-28 18:29 | NUR ---
SHIFT SUMMARY. A&OX4, PLEASANT AND COOPERATIVE, AWARE OF LIMITATIONS, USES CALL LIGHT APPROPRITALY. NO NEW CHANGES IN NEURO ASSESSMENT. PT DENIES SOB, N/V, AND PAIN. AWAITING INSURANCE APPROVAL FOR SNF PLACEMENT. NO NEW CHANGES OR CONCERNS.
--- NOTE | 2019-06-29 05:19 | NUR ---
SHIFT SUMMARY AOX4. ANSWERS ALL QUESTIONS APPROPRIATELY. HAS SLURRED SPEECH. SLEPT WELL T/O NIGHT. HAS R SIDED FACIAL DROOP WITH R SIDE WEAKNESS, IS ABLE TO GROSSLY MOVE R LEG & ARM. REPORTS MUSCLE SPASMS IN R ARM & LEG & STATES FLEXERIL HELPS. PT REPORTED MILD 3/10 HEADACHE LAST NIGHT, CALLED HOSPITALIST IRINEO Kerr & SHE ORDERED TYLENOL, PT REPORTED RELIEF. MEDS GIVEN IN APPLESAUCE. CBG @ WAS 322, PROVIDED COVERAGE PER ORDERS. REPOSITIONED PRN. CALL LIGHT IN REACH. WCTM.
--- NOTE | 2019-06-29 17:02 | NUR ---
SHIFT SUMMARY. PT WITH NO CHANGES TO CURRENT NEURO STATUS. PT DENIES PAIN, SOB, N/V. GOOD MEAL INTAKE. NO NEW CHANGES OR CONCERNS. AWAITING PLACEMENT.
--- NOTE | 2019-06-30 04:17 | NUR ---
SHIFT SUMMARY NO ACUTE CHANGES THIS SHIFT. AOX4. VSS. ANSWERS QUESTIONS APPROPRIATELY. HAS R SIDE WEAKNESS, W/VERY MINIMAL GROSS MOVEMENT IN R ARM & LEG. PT STATES 5/10 PAIN FROM MUSCLE SPASMS IN R ARM/LEG, ALONG W/OCCASIONAL INVOLUNTARY MOVEMENTS OF R ARM & REPORTS RELIEF W/FLEXERIL. NO S/S OF N/V OR DYSPNEA. TELE IN PLACE RUNNING NSR. CALL LIGHT IN REACH & PT MAKES NEEDS KNOWN. WAITING ON PLACEMENT. WCTM.
[2019-06-30 05:42] LABS: Anion Gap 7 mmol/L (6-16); Blood Urea Nitrogen 24 mg/dL (8-24); Bun/Creatinine Ratio 37.6 (12.0-20.0); CO2, Blood 24 mmol/L (21-32); Calcium, Blood 9.3 mg/dL (8.5-10.1); Chloride, Blood 107 mmol/L (98-108); Creatinine, Blood 0.64 mg/dL (0.40-1.00); Glomerular Filtration Rate >60 (60-); Glucose, Blood 242 mg/dL (70-99); Sodium, Blood 138 mmol/L (136-145)
[2019-06-30 06:53] LABS: Source, Urine Catheter
[2019-06-30 06:55] LABS: Appearance, Urine Clear (Clear); Bilirubin, Urine Neg (Neg); Blood, Urine 5+ (Neg); Color, Urine Yellow (P-Yellow); Glucose Qualitative, Urine 4+ (Neg); Ketones, Urine Neg (Neg); Leukocyte Esterase, Urine 1+ (Neg); Nitrite, Urine Neg (Neg); Protein, Urine 2+ (Neg); Urobilinogen, Urine NORM (Normal)
[2019-06-30 07:06] LABS: Bacteria Many /hpf; Red Blood Cells, Urine 50-100 /hpf (0-2); Squamous Epithelial Cells Rare /hpf (Few)
--- NOTE | 2019-06-30 07:25 | NUR ---
FREQUENTLY URINATING PT HAS BEEN NEEDING TO FREQUENTLY URINATE, EVERY 30MIN SINCE AROUND 0200 THIS AM. SHE HAS BEEN CONTINENT, BUT ONLY VOIDING 100ML EACH TIME. AT 0600 PT WAS BLADDER SCANNED & HAD >518ML IN BLADDER. POST VOID OF 100ML, BLADDER SCAN REPORTED 490ML IN BLADDER. I STRAIGHT CATHED PT & GOT 560ML URINE OUT. POST STRAIGHT CATH PT HAD 35ML URINE IN BLADDER. PT DENIES BURNING FEELING W/URINATION. UA WAS SENT TO LAB PER PROTOCAL OF INSERTION OF CATH. INFORMED DAY SHIFT NURSE.
--- NOTE | 2019-06-30 17:03 | NUR ---
PT IS A/OX3, UP WITH MAXIMUM 2 PERSON ASSIST TO THE CHAIR AND THE BSC, THE PT IS ONLY ABLE TO VOID LITTLE AMOUNTS AT A TIME, THE PT APPEARS TO BE BREATHING EASILY ON RA, THE PT WAS MEDICATED WITH FLEXERIL AND TYLENOL X 1 FOR RIGHT SHOULDER PAIN AND SPASMS, THE PT WORKED WITH THE PHYSICAL AND OCCUPATIONAL THERAPIST'S TODAY AND TOLERATED WELL, THE PT WAS UP INTO THE CHAIR FOR ALL MEALS, PT WAS SUPERVISED WITH MEALS, FAMILY IS AT THE BEDSIDE AT THIS TIME, CALL LIGHT IN REACH
[2019-06-30] MEDS ORDERED: LOSA25 PO (17:16)
[2019-06-30] MEDS ORDERED: XARELTO20 MG PO (17:16)
[2019-06-30] MEDS ORDERED: ASPI81CH PO (17:16)
--- NOTE | 2019-06-30 19:25 | NUR ---
PT DISCHAREGED PT TRANSFERED VIA WHEELCHAIR TO [facility], REPORT WAS CALLED TO RN, PT WAS A 2 PERSON ASSIST TO THE WHEELCHAIR, THE PT APPEARED TO BE BREATHING EASILY ON RA, FAMILY WAS WITH THE PT, ORDERS WERE FAXED BY THE CARE MANAGMENT DISCHARGE TEAM
== END 2019-06-30 18:55 | DRG 66 ==
LOC: ER 10:47 → MEDS 15:10
PROVIDERS: Emergency Medicine; Hospitalist; Internal Medicine; Internal Medicine Cardiovascular Disease; Nurse Practitioner Acute Care; ADMIT Internal Medicine
PROC: B246ZZ4 Ultrasonography of Right and Left Heart, Transesophageal (ICD-10-PCS; principal; 2019-06-24)
DX: I63.89 Other cerebral infarction (principal); I10 Essential (primary) hypertension; E78.5 Hyperlipidemia, unspecified; E11.9 Type 2 diabetes mellitus without complications; G47.33 Obstructive sleep apnea (adult) (pediatric); R29.810 Facial weakness; E66.9 Obesity, unspecified; Z68.32 Body mass index [BMI] 32.0-32.9, adult; I35.9 Nonrheumatic aortic valve disorder, unspecified; Z79.4 Long term (current) use of insulin
CPT/HCPCS: 36415; 70551; 80048; 80053; 80061; 80069; 81001; 82947; 83036; 85025; 85027; 85651; 87040; 92507; 92523; 92526; 92610; 93005; 93010; 93308; 93312; 93321; 93325; 93880; 94640; 94760; 94762; 97110; 97112; 97162; 97166; 97530; 97535; 99285-25; A9270; A9270-GY; J1650; J2250; J3010; J7030; J7042

== ENCOUNTER 2019-07-10 13:04 | Inpatient (IN) | payer OTHER ==
[~2019-07-10] VITALS: Ht 165.1 cm; Wt 86.5 kg
[~2019-07-10 13:04] MED LIST changes: +ASPI81CH PO; +ATOR40TA PO; -ATOR80 PO; +DULCOLAX5 MG PO; +GABA100 PO; +LOSA25 PO; +MECL12.5 PO; +MELATONIN TR 51 EAC2 PO; +XARELTO20 MG PO
[2019-07-10 13:40] LABS: BASOPHILS ABSOLUTE AUTO 0.04 K/mm3 (0.00-0.23); BASOPHILS PERCENT AUTO 0 % (0-2); EOSINOPHILS ABSOLUTE AUTO 0.01 K/mm3 (0.00-0.68); EOSINOPHILS PERCENT AUTO 0 % (0-6); Hematocrit 36.6 % (33.0-51.0); Hemoglobin 11.7 g/dL (11.5-16.0); IMMATURE GRAN ABSOLUTE AUTO 0.19 K/mm3 (0.00-0.10); IMMATURE GRAN PERCENT AUTO 1 % (0-1); LYMPHOCYTES ABSOLUTE AUTO 1.44 K/mm3 (0.84-5.20); LYMPHOCYTES PERCENT AUTO 7 % (21-46); MONOCYTES ABSOLUTE AUTO 0.57 K/mm3 (0.16-1.47); MONOCYTES PERCENT AUTO 3 % (4-13); Mean Corpuscular HGB 28.7 pg (26.0-34.0); Mean Corpuscular Volume 90 fL (80-100); Mean Platelet Volume 10.6 fL (9.1-12.4); NEUTROPHILS ABSOLUTE AUTO 17.49 K/mm3 (1.96-9.15); NEUTROPHILS PERCENT AUTO 89 % (41-73); Platelet Count 516 K/mm3 (150-400); RDW Coefficient Variation 12.2 % (11.7-14.2); Red Blood Cell Count 4.08 M/mm3 (3.80-5.20); White Blood Cell Count 19.74 K/mm3 (4.00-11.30)
[2019-07-10] MEDS ORDERED: ARMODAFINIL50 MG PO (13:50)
[2019-07-10] MEDS ORDERED: PRED20 PO (13:52)
[2019-07-10] MEDS ORDERED: AMOCLA875 PO (13:56)
[2019-07-10 13:58] LABS: Source, Urine Clean Catch
[2019-07-10] MEDS ORDERED: Duoneb 2.5-0.5 M3 ML INH (14:02)
[2019-07-10] MEDS ORDERED: ACET325 PO (14:06)
[2019-07-10 14:07] LABS: Alanine Aminotransfer (ALT/SGP 33 U/L (12-78); Albumin, Blood 2.6 g/dL (3.4-5.0); Albumin/Globulin Ratio 0.4 (0.8-1.8); Alk Phos 148 U/L (50-136); Anion Gap 9 mmol/L (6-16); Aspartate Aminotrans (AST/SGOT 18 U/L (12-37); Bilirubin, Total 0.6 mg/dL (0.1-1.0); Blood Urea Nitrogen 34 mg/dL (8-24); Bun/Creatinine Ratio 35.8 (12.0-20.0); CO2, Blood 22 mmol/L (21-32); Calcium, Blood 9.2 mg/dL (8.5-10.1); Chloride, Blood 107 mmol/L (98-108); Creatinine, Blood 0.95 mg/dL (0.40-1.00); Globulin, Blood 6.1 g/dL (2.2-4.0); Glomerular Filtration Rate >60 (60-); Glucose, Blood 466 mg/dL (70-99); Potassium, Blood 4.1 mmol/L (3.5-5.5); Sodium, Blood 138 mmol/L (136-145); Total Protein, Blood 8.7 g/dL (6.4-8.2)
[2019-07-10 14:08] LABS: Base Excess Venous -2.7 mmol/L; Bicarbonate Venous 21.9 mmol/L (24.0-30.0); PO2 Venous 44.8 mmHg (38-42); pH Blood Venous 7.36 (7.34-7.37)
[2019-07-10] MEDS ORDERED: BASAGLAR K100 UNIT/2 SC (14:11)
[2019-07-10 14:12] LABS: Appearance, Urine Hazy (Clear); Bilirubin, Urine Neg (Neg); Blood, Urine 5+ (Neg); Color, Urine Yellow (P-Yellow); Glucose Qualitative, Urine 4+ (Neg); Ketones, Urine 1+ (Neg); Leukocyte Esterase, Urine 2+ (Neg); Nitrite, Urine Neg (Neg); Protein, Urine 2+ (Neg); Urobilinogen, Urine NORM (Normal); pH, Urine 6.5 (5.0-8.0)
[2019-07-10 14:16] LABS: Amorphous Light (0-Heavy); Bacteria Many /hpf; Mucus Light (0-Heavy); Squamous Epithelial Cells Rare /hpf (Few)
--- NOTE | 2019-07-10 19:36 | NUR ---
PT ARRIVED AT 1715 AWAKE, ORIENTED, AND COOPERATIVE. PT SKIN FLUSHED WITH WET COUGH. TEMP 99.3, SINUS TACH. BP ELEVATED 160'S. PT C/O THROAT PAIN AND SPASMS TO R ARM/LEG. PT STATES THAT SHE HAS HAD SPASMS IN THE PAST AND TOOK A MUSCLE RELAXER. LUNGS CLEAR. ABD FIRM;PT STATES THIS IS NORMAL, DENIES PAIN W PALP. PT INCONTINENT OF URINE; STATES THIS HAS HAPPENED ONLY RECENTLY. PT ONLY ABLE TO WHISPER; STATES SHE LOST HER VOICE ONE WEEK AGO. PT'S DAUGHTER AT BEDSIDE; PT AND DAUGHTER REPORT WORSENING STRENGTH IN R SIDE W SOME GARBLED SPEECH. HEAD CT NEG; IT MAY BE REPEATED IN A COUPLE DAYS. PT STATES SHE IS ON NECTAR THICK LIQUID/PUREED DIET. PILLS GIVEN CRUSHED IN APPLESAUCE. PT SWALLOWED WELL W/O SIGNS OF CHOKING/COUGHING. LATER PT COUGHED ON NECTAR THICK WATER GIVEN BY THE SPOONFUL ONLY. LIQUIDS WILL BE HELD UNTIL SPEECH EVAL COMPLETED. PCR SENT. RAPID STREP SENT. CBG 268 ON ADMIT; PT COVERED W NOVOLOG. REPORT GIVEN TO ESTEPHANIE KIRK. FAMILY AT BEDSIDE. DNR STATUS VARIFIED WITH PT. PT WAS VERY CLEAR ABOUT DNR STATUS. PT'S DAUGHTER UPSET OVER DNR STATUS AND ASKED HER MOTHER REPEATITIVELY "ARE YOU SURE YOU WANT THAT?", PT ANSWERED YES EACH TIME. PURPLE BAND TO LEFT WRIST. DAUGHTER NOTIFIED THAT PT HAS POLST. EXTENSIVE TIME SPENT W DAUGHTER ANSWERING QUESTIONS AND OFFERING COMFORT.
[2019-07-10 19:45] LABS: Adenovirus Not Detected (NOT DETECT); Bordetella pertussis Not Detected (NOT DETECT); Chlamydophila pneumoniae Not Detected (NOT DETECT); Coronavirus 229E Not Detected (NOT DETECT); Coronavirus HKU1 Not Detected (NOT DETECT); Coronavirus NL63 Not Detected (NOT DETECT); Coronavirus OC43 Not Detected (NOT DETECT); Human Metapneumovirus Detected (NOT DETECT); Human Rhinovirus/Enterovirus Not Detected (NOT DETECT); Influenza A/2009-H1 Not Detected (NOT DETECT); Influenza A/H1 Not Detected (NOT DETECT); Influenza A/H3 Not Detected (NOT DETECT); Influenza B Not Detected (NOT DETECT); Mycoplasma pneumoniae Not Detected (NOT DETECT); Parainfluenza Virus 1 Not Detected (NOT DETECT); Parainfluenza Virus 2 Not Detected (NOT DETECT); Parainfluenza Virus 3 Not Detected (NOT DETECT); Parainfluenza Virus 4 Not Detected (NOT DETECT); Respiratory Syncytial Virus Not Detected (NOT DETECT)
--- NOTE | 2019-07-10 22:00 | NUR ---
ASSUMPTION OF CARE ASSUMED CARE OF PT @ 1900, PT AWAKE IN BED, BEING SPOON FED THICKENED LIQUIDS BY DAUGHTER, PT BEGINS CHOKING ON LIQUIDS, IN APPARENT DISTRESS, COUGHING, QUICK RECOVERY, ORAL SUCTION NOT REQUIRED, O2 SATURATIONS REMAINED>90%, PO INTAKE PAUSED AT THIS TIME. PT MAINTAINS O2 SATURATIONS ON RA, MONITOR SHOWS SINUS RHYTHM WITH HR 70'S-80'S, BP STABLE, MILDLY HTN. PT WITH R SIDE DEFECITS, HX CVA. PT INCONTINENT AT THIS TIME, FAMILY STS THIS IS NOT PTS BASELINE, ATTENDS IN PLACE.
[2019-07-11 04:07] LABS: BASOPHILS ABSOLUTE AUTO 0.06 K/mm3 (0.00-0.23); BASOPHILS PERCENT AUTO 0 % (0-2); EOSINOPHILS ABSOLUTE AUTO 0.08 K/mm3 (0.00-0.68); EOSINOPHILS PERCENT AUTO 0 % (0-6); Hematocrit 34.9 % (33.0-51.0); Hemoglobin 11.3 g/dL (11.5-16.0); IMMATURE GRAN ABSOLUTE AUTO 0.15 K/mm3 (0.00-0.10); IMMATURE GRAN PERCENT AUTO 1 % (0-1); LYMPHOCYTES PERCENT AUTO 18 % (21-46); MONOCYTES ABSOLUTE AUTO 0.93 K/mm3 (0.16-1.47); MONOCYTES PERCENT AUTO 4 % (4-13); Mean Corpuscular HGB Conc 32.4 g/dL (31.5-36.5); Mean Corpuscular Volume 90 fL (80-100); Mean Platelet Volume 10.2 fL (9.1-12.4); NEUTROPHILS ABSOLUTE AUTO 17.83 K/mm3 (1.96-9.15); NEUTROPHILS PERCENT AUTO 77 % (41-73); Platelet Count 468 K/mm3 (150-400); RDW Coefficient Variation 12.3 % (11.7-14.2); RDW Standard Deviation 40.3 fL (35.1-46.3); Red Blood Cell Count 3.89 M/mm3 (3.80-5.20); White Blood Cell Count 23.15 K/mm3 (4.00-11.30)
[2019-07-11 04:21] LABS: International Normalized Ratio 1.24; Prothrombin Time Results 13.1 Sec (9.7-11.5)
[2019-07-11 04:27] LABS: Alanine Aminotransfer (ALT/SGP 38 U/L (12-78); Albumin, Blood 2.3 g/dL (3.4-5.0); Albumin/Globulin Ratio 0.4 (0.8-1.8); Alk Phos 464 U/L (50-136); Anion Gap 8 mmol/L (6-16); Aspartate Aminotrans (AST/SGOT 16 U/L (12-37); Bilirubin, Total 0.5 mg/dL (0.1-1.0); Blood Urea Nitrogen 25 mg/dL (8-24); Bun/Creatinine Ratio 36.1 (12.0-20.0); CO2, Blood 22 mmol/L (21-32); Calcium, Blood 8.9 mg/dL (8.5-10.1); Chloride, Blood 116 mmol/L (98-108); Creatinine, Blood 0.69 mg/dL (0.40-1.00); Globulin, Blood 5.8 g/dL (2.2-4.0); Glomerular Filtration Rate >60 (60-); Glucose, Blood 159 mg/dL (70-99); Magnesium, Blood 2.3 mg/dL (1.6-2.4); Potassium, Blood 3.8 mmol/L (3.5-5.5); Sodium, Blood 146 mmol/L (136-145); Total Protein, Blood 8.1 g/dL (6.4-8.2)
--- NOTE | 2019-07-11 06:09 | NUR ---
SHIFT SUMMARY NO ACUTE CHANGES THIS SHIFT. PT SLEPT T/O SHIFT, UPON WAKING PT HAS DIFFICULTY COMMUNICATING, PT VERY SOFT SPOKEN AND SOME SLURRED SPEECH NOTED. PT USING GESTURES AND PAPER/PEN TO COMMUNICATE. PT PLACED ON 2L PER NC TO MAINTAIN OXYGEN SATURATIONS WHILE SLEEPING. PT ABLE TO ASSIST WITH SOME ADL'S/NURSING CARE, RUE REMAINS FLACCID, SOME GROSS MOVEMENT IN RLE. PT INCONTINENT OF URINE, NO BM THIS SHIFT, NO BLOOD NOTED IN ATTENDS T/O SHIFT. IV TO LFA PULLED BY PT THIS SHIFT, UNSURE IF INTENTIONAL OR ACCIDENTLY. CALL LIGHT WITHIN REACH.
--- NOTE | 2019-07-11 08:00 | NUR ---
PT AWAKE, ALERT AND COMMUNICATES WRITING ON PAPER AND VOICES OCCASIONALLY WITH A WHISPER. DENIES NO PAIN OR SOB. RIGHT SIDED WEAKNESS DUE TO CVA. IV SITE EVALUATED AND INFILTRATION NOTED, STOPPED IVF'S. NPO STATUS AND AWAITING SWALLOWING EVAL. WILL DO BEDISE SWALLOW EVAL WITH APPLESAUCE AND IF NO DIFFICULTIES NOTED WITH COUGH/CHOCKING WILL GIVE PO MEDS CRUSHED WITH APPLESAUCE.
--- NOTE | 2019-07-11 14:24 | NUR ---
FOUZIA MORRIS RN SPOKE WITH DR VIVAR, NEW ORDERS FOR CARDIOLOGY CONSULT REGARING FOLLOW UP ON MASS TO AORTIC VALVE. FOUZIA SPOKE WITH AND DAUGHTER AND UPDATE REGARDING STATUS AND ANWERED ALL QUESTIONS/CONCERNS.
--- NOTE | 2019-07-11 18:39 | NUR ---
PT INCREASE ALTERNESS T/O SHIFT BUT BECOMING MORE RESTLESS THIS AFTERNOON. SWALLOW EVAL TRIAL AT BEDSIDE THIS AM WITH APPLESAUCE; TOLERATED WELL. ADVANCED DIET TO PUREE PER ORDERS BUT DID HAVE SOME COUGHING WITH MEAL. CHANGED DIET BACK TO NPO EXCEPT MEDS CRUSHED WITH APPLESAUCE. BLOOD SUGARS CONTINUED TO RISE AT EACH CHECK. NEW ORDER TO CHANGE LANTUS BACK TO 45UNITS DAILY PER ORDES. NEW CONSULTATIONS ORDER FOR CARDIOLOGY FOR RE-EVAL FOR MASS ON AORTIC VALVE AND INFECTION DISEASE FOR R/O ENDOCARDITIS. 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 LOW GRADE TEMP THIS AFTERNOON, TYLENOL GIVEN TO TX. BP STABLE T/O SHIFT.
--- NOTE | 2019-07-11 20:30 | NUR ---
Echocardiogram completed.
--- NOTE | 2019-07-11 21:30 | NUR ---
ASSUMPTION OF CARE ASSUMED CARE OF PT @ 1900, PT RESTING IN BED A&O x4, MAINTAINING O2 SATURATIONS>90% ON RA, MONITOR SHOWS SINUS RHYTHM, HR 80'S. R SIDE DEFICITS REMAIN, R/T HX OF CVA, R ARM FLACCID, GROSS MOVEMENT IN R LEG. PT ABLE TO COMMUNICATE BY WHISPERING, DIFFICULT TO UNDERTAND AT TIMES. AT [facility] 1930, THIS RN WAS CALLED TO ROOM, PT RESTLESS IN BED, REMOVING GOWN, PULLING OFF BLUEPRINT DUPLICATOR LEADS, STS SHE WANTS TO GO HOME, ATTEMPTED TO DISCUSS PTS CURRENT STATUS, PT CONTINUED TO REFUSE NURSING CARE AND WAS VERY ADMIMENT ABOUT CALLING HER AND GOING HOME. CALL PLACED TO PTS DAUGHTER AND TO HELP ENCOURAGE PT TO STAY IN THE HOSPITAL, PT SPOKE TO BOTH VIA TELEPHONE, CHAPINCITO MITCHELL CONSTRUCTION ADMINISTRATOR TO ROOM TO EVALUATE PT. [place] [facility] AMOUNT OF PURULENT DRAINAGE, BLADDER SCAN COMPLETED AND SHOWED>999mls, LIVE CATHETER INSERTED, INITIAL URINE OUTPUT WAS CLOUDY AND TEA COLORED AND THEN RED IN COLOR, 1900ml INITIAL URINE OUTPUT. PT WAS MEDICATED FOR LOW ABD/BLADDER PAIN WITH GOOD EFFECT. SPOKE WITH CHAPINCITO YOON NP REGARDING NPO STATUS PT REPORTS BEING VERY THIRSTY, THICKENED LIQUIDS OKAY PER CHAPINCITO ORTEGA TO PROVIDE MINIMAL FLUIDS WITH MEDICATIONS, PT TOLERATED WELL.
[2019-07-11 21:38] LABS: Source, Urine Catheter
[2019-07-11 21:40] LABS: Appearance, Urine Cloudy (Clear); Bilirubin, Urine Neg (Neg); Blood, Urine 5+ (Neg); Color, Urine Amber (P-Yellow); Glucose Qualitative, Urine 4+ (Neg); Ketones, Urine 1+ (Neg); Leukocyte Esterase, Urine 3+ (Neg); Nitrite, Urine Neg (Neg); Protein, Urine 3+ (Neg); Specific Gravity, Urine 1.015 (1.003-1.022); Urobilinogen, Urine NORM (Normal)
[2019-07-11 21:54] LABS: Red Blood Cells, Urine 50-100 /hpf (0-2); White Blood Cells, Urine TNTC /hpf (0-5)
[2019-07-11 21:55] LABS: Bacteria Many /hpf; Squamous Epithelial Cells Not Seen /hpf (Few)
[2019-07-12 04:00] LABS: BASOPHILS ABSOLUTE AUTO 0.06 K/mm3 (0.00-0.23); BASOPHILS PERCENT AUTO 0 % (0-2); EOSINOPHILS ABSOLUTE AUTO 0.24 K/mm3 (0.00-0.68); EOSINOPHILS PERCENT AUTO 1 % (0-6); Hematocrit 32.2 % (33.0-51.0); Hemoglobin 10.5 g/dL (11.5-16.0); IMMATURE GRAN ABSOLUTE AUTO 0.25 K/mm3 (0.00-0.10); IMMATURE GRAN PERCENT AUTO 1 % (0-1); LYMPHOCYTES ABSOLUTE AUTO 3.25 K/mm3 (0.84-5.20); LYMPHOCYTES PERCENT AUTO 16 % (21-46); MONOCYTES ABSOLUTE AUTO 0.97 K/mm3 (0.16-1.47); MONOCYTES PERCENT AUTO 5 % (4-13); Mean Corpuscular HGB 29.2 pg (26.0-34.0); Mean Corpuscular HGB Conc 32.6 g/dL (31.5-36.5); Mean Corpuscular Volume 90 fL (80-100); Mean Platelet Volume 10.5 fL (9.1-12.4); NEUTROPHILS ABSOLUTE AUTO 15.88 K/mm3 (1.96-9.15); NEUTROPHILS PERCENT AUTO 77 % (41-73); Platelet Count 486 K/mm3 (150-400); RDW Coefficient Variation 12.4 % (11.7-14.2); RDW Standard Deviation 41.1 fL (35.1-46.3); Red Blood Cell Count 3.59 M/mm3 (3.80-5.20); White Blood Cell Count 20.65 K/mm3 (4.00-11.30)
[2019-07-12 04:18] LABS: Alanine Aminotransfer (ALT/SGP 42 U/L (12-78); Albumin, Blood 2.2 g/dL (3.4-5.0); Albumin/Globulin Ratio 0.4 (0.8-1.8); Alk Phos 150 U/L (50-136); Anion Gap 7 mmol/L (6-16); Aspartate Aminotrans (AST/SGOT 32 U/L (12-37); Bilirubin, Total 0.4 mg/dL (0.1-1.0); Blood Urea Nitrogen 17 mg/dL (8-24); Bun/Creatinine Ratio 22.2 (12.0-20.0); CO2, Blood 22 mmol/L (21-32); Calcium, Blood 8.4 mg/dL (8.5-10.1); Chloride, Blood 117 mmol/L (98-108); Creatinine, Blood 0.77 mg/dL (0.40-1.00); Globulin, Blood 5.5 g/dL (2.2-4.0); Glomerular Filtration Rate >60 (60-); Glucose, Blood 255 mg/dL (70-99); Potassium, Blood 3.7 mmol/L (3.5-5.5); Sodium, Blood 146 mmol/L (136-145); Total Protein, Blood 7.7 g/dL (6.4-8.2)
--- NOTE | 2019-07-12 06:29 | NUR ---
SHIFT SUMMARY PT SLEPT WELL T/O NIGHT. ROUSABLE TO VERBAL STIMULI REMAINS ORIENTED x4. PT PLACED ON 2L PER NC WHILE SLEEPING, MAINTAINS O2 SATURATIONS>90% ON RA WHILE AWAKE. MONITOR SHOWS SINUS RHYTHM WITH HR 70-80'S, HTN. NO BM THIS SHIFT, LIVE IN PLACE DRAINING CLOUDY RED URINE. R SIDED PARESIS REMAINS, PT ABLE TO ASSIST IN SOME NURSING CARE/REPOSITIONING. PT DENIES ANY PAIN OR SOB. ECHO COMPLETED YESTERDAY EVENING, PLAN FOR SWALLOW EVAL TODAY.
--- NOTE | 2019-07-12 08:14 | NUR ---
ASSESSMENT- PT AWAKENS TO NAME, ALERT, COOPERATIVE, SPEECH FAINT, WEAK. REPOSITIONED. MOVES SELF IN BED WEAKLY. LUNGS COARSE, SPONTANEOUS COUGH. NO N/V. BLOOD SUGAR ELEVATED, COVERED PER ORDERS. UO VIA LIVE. NS VIA SAMY MIDLINE AT 75 CC/HR.
--- NOTE | 2019-07-12 10:06 | NUR ---
PT P TO CHAIR WITH ASSITANCE FROM THERAPIST. TOLERATED WELL. VERY THANKFUL FOR CARES. MOVES WEAKLY. REQUESTING FOOD. ABLE TO TAKE PILLS WITH APPLESAUCE SITTING UP. DR. BARKERTRATE HERE-UPDATED. ISOLATION D/C PER INFECTION CONTROL RECOMMENDATIONS
--- NOTE | 2019-07-12 12:06 | NUR ---
BEDSIDE SWALLOW DONE. ASPIRATING. RECOMMENDATIONS FOR NOTHING BY MOUTH. PT UP IN CHAIR. TRANSFERRED TO [facility] [place] WITH GAIT BELT, TWO ASSIST. PT DENIES PAIN
--- NOTE | 2019-07-12 13:08 | NUR ---
DR. EDMONDS HERE-ASSESSED PT. LABS DRAWN, URINE SENT. NOTIFIED PT'S OF RESULTS OF SWALLOW EVAL. DR BARKERTRATE TO MJ
--- NOTE | 2019-07-12 14:00 | NUR ---
PER DR VIVAR PT'S WOULD LIKE PT TO BE ABLE TO EAT BEST RECOMMENDATION FROM SPEECH THERAPIST. THERAPIST NOTIFIED-STATES RECOMMENDATION IS NPO-IS ASPIRATING. UPDATE TO PALLIATIVE CARE. PT QUIET, RESTING WITHOUT COMPLAINTS
--- NOTE | 2019-07-12 15:50 | NUR ---
PT TO CT AND RETURN WITHOUT PROBLEMS. AWAKE, ALERT, COOPERATIVE. REQUESTING WATER. ORAL CARE DONE-STATES FEELS BETTER. SPEECH UNCHANGED, VOICE VERY SOFT. LUNGS STILL COARSE T/O
--- NOTE | 2019-07-12 16:57 | NUR ---
FAMILY NOTE- PT'S DAUGHTER AND CALLED-REQUESTING PEG PLACEMENTIF PT IS STRONG ENOUGH TO HAVE THE PROCEDURE. THEY DO NOT WANT NGT PLACEMENT-STATES FEELS IT WILL CAUSE TOO MUCH ANXIETY. ANSWERED QUESTIONS.
--- NOTE | 2019-07-12 18:24 | NUR ---
PT'S DAUGHTER AND SON-IN-LAW HERE. PT AWAKE, COMMUNICATIVE, VOICE VERY SOFT, ORIENTED. INSISTENT THAT SHE WANTS TO DRINK, FAMILY SUPPORTIVE-COMFORTED BY JUST "SMELLING" THE SODA. PLANS FOR PEG PLACEMENT FRIDAY. SHOSHANA ALTAMIRANO. HEPARIN GTT STARTED. PALLIATIVE CARE RN TALKING WITH FAMILY
--- NOTE | 2019-07-12 18:58 | NUR ---
Clinical Visit: Pt is alert, appears oriented to situation/environment. She is oriented to family members and communicating to them with some hand signs and soft voice. Family has decided to allow PEG tube. Pt is expressing wish to eat, has requested her daughter to bring something to drink for her. She has been told that she cannot eat. She wants her daughter to bring her a hamburger and fries to smell. She has a diet coke that she enjoys smelling. Reviewed risk/benefit with PEG tube. The daughter reports that they are hoping that her mother will get stronger with therapy and be able to swallow again eventually. She is hoping that the PEG tube will be temporary. Daughter is part of a stroke support group. She has gotten feedback from her support group encouraging the placement of the PEG. Pt is not painful at this time, but she is fixated on smelling things. Provided aromatherapy patches for pt, strawberry chapstick, and a lavender sachet. Daughter expresses gratitude for my visit. Welcomed family to request conversation with pallitative care for other questions. Have instructed the family of my role here to promote quality of life for patients with chronic diseases and illnesses. Will remain available.
--- NOTE | 2019-07-12 19:01 | NUR ---
ASPIRATION PRECAUTIONS- PT'S FAMILY DOES NOT WANT PT TO RECEIVE PO MEDS WITH THE POSSIBILITY SHE IS ASPIRATING. NOTIFIED DR. VIVAR. ORDERS FOR CLINIMIX
--- NOTE | 2019-07-12 19:11 | NUR ---
Initial spiritual care note: I met with pt this morning. No family present at time of visit. She has garbled speech and is nearly impossible to understand. She tries to be understood and this appears to frustrate her. She held my hand tightly while I prayed for her. She managed to say "thank you" and appeared to enjoy presence and encouragement. I will remain available to pt and family.
--- NOTE | 2019-07-12 19:55 | NUR ---
PER DR. RODRÍGUEZ VIA TELEPHONE, NEED TO STOP HEPARIN AT 9AM, PT TO GO TO OR FOR PEG TUBE PLACEMENT AT 11AM. STATES WILL NEED TO TALK TO FAMILY FOR CONSENT. SAFETY MEASURES IN PLACE. WILL CONTINUE TO MONITOR.
[2019-07-13 01:24] LABS: BASOPHILS ABSOLUTE AUTO 0.08 K/mm3 (0.00-0.23); BASOPHILS PERCENT AUTO 1 % (0-2); EOSINOPHILS ABSOLUTE AUTO 0.35 K/mm3 (0.00-0.68); EOSINOPHILS PERCENT AUTO 2 % (0-6); Hematocrit 32.2 % (33.0-51.0); Hemoglobin 10.2 g/dL (11.5-16.0); IMMATURE GRAN ABSOLUTE AUTO 0.28 K/mm3 (0.00-0.10); IMMATURE GRAN PERCENT AUTO 2 % (0-1); LYMPHOCYTES PERCENT AUTO 24 % (21-46); MONOCYTES ABSOLUTE AUTO 0.84 K/mm3 (0.16-1.47); MONOCYTES PERCENT AUTO 5 % (4-13); Mean Corpuscular HGB 28.2 pg (26.0-34.0); Mean Corpuscular HGB Conc 31.7 g/dL (31.5-36.5); Mean Corpuscular Volume 89 fL (80-100); Mean Platelet Volume 10.3 fL (9.1-12.4); NEUTROPHILS ABSOLUTE AUTO 11.49 K/mm3 (1.96-9.15); NEUTROPHILS PERCENT AUTO 67 % (41-73); Platelet Count 481 K/mm3 (150-400); RDW Coefficient Variation 12.3 % (11.7-14.2); RDW Standard Deviation 40.6 fL (35.1-46.3); Red Blood Cell Count 3.62 M/mm3 (3.80-5.20); White Blood Cell Count 17.24 K/mm3 (4.00-11.30)
[2019-07-13 02:06] LABS: Anion Gap 8 mmol/L (6-16); Blood Urea Nitrogen 12 mg/dL (8-24); Bun/Creatinine Ratio 16.7 (12.0-20.0); CO2, Blood 20 mmol/L (21-32); Calcium, Blood 8.3 mg/dL (8.5-10.1); Chloride, Blood 117 mmol/L (98-108); Creatinine, Blood 0.72 mg/dL (0.40-1.00); Glomerular Filtration Rate >60 (60-); Glucose, Blood 261 mg/dL (70-99); Potassium, Blood 3.2 mmol/L (3.5-5.5); Sodium, Blood 145 mmol/L (136-145)
--- NOTE | 2019-07-13 03:15 | NUR ---
ORAL CARE COMPLETED AND GLYCERINE SWABS PROVIDED. CONTINUES TO ASK FOR WATERTO DRINK. STATES SHE WILL DRINK TAP WATER IF NURSING WOULD JUST GIVE IT TO HER. REITERATED THAT SHE IS NOTHING TO EAT OR DRINK. SHE NODS HEAD IN UNDERSTANDING, BUT CONTINUES TO ASK FOR WATER. VOICE HAS BECOME CLEARER, LOUDER, AND STRONGER THROUGHOUT SHIFT. DENIES OTHER NEEDS AT THIS TIME. SAFETY MEASURES IN PLACE. WILL CONTINUE TO MONITOR.
--- NOTE | 2019-07-13 06:35 | NUR ---
SHIFT SUMMARY LYING ON HER RIGHT SIDE FOR COMFORT. CONTINUES TO IMPROVE, BUT IN STILL UPSET ABOUT BEING NPO. CALLS OUT FOR WATER AND EACH TIME SOMEONE COMES TO BEDSIDE SHE MOTIONS ASKING FOR A DRINK. EACH TIME SHE ASKES SHE, IT IS REITERATED THAT SHE IS NPO. SCHEDULED FOR PEG TUBE PLACEMENT AT 1100HRS TODAY WITH DR. RODRÍGUEZ. HEPARIN IS TO BE TURNED OFF AT 0900HRS TODAY. SAFETY MEASURES IN PLACE. WILL GIVE HAND OFF TO ONCOMING SHIFT USING SBAR DURING BEDSIDE REPORT.
--- NOTE | 2019-07-13 09:00 | NUR ---
PT AWAKE, ABLE TO FOLLOW SIMPLE COMMANDS. HX RIGHT SIDED WEAKNESS. VSS. REMAINS NPO STATUS DUE TO PEG TUBE PLACEMENT TODAY. URINE COLOR CRANBERRY RED DUE TO HEPARIN GTT INFUSING. STOPPED GTT PER ORDERS FOR PROCEDURE. WILL UPDATE DR REGARDING COLOR. CONTINUE TO MONITOR AND TX PER ORDERS.
--- NOTE | 2019-07-13 10:15 | NUR ---
PT LEFT FOR PEG TUBE PLACEMENT. PER DR VIVAR, WILL DC HEPARIN GTT DUE TO CRANBERRY RED URINE ELIMINATION. WILL RE-EVALUATE IN AM FOR COAGULATION TX.
--- NOTE | 2019-07-13 14:57 | NUR ---
UPDATE FROM DAY SURGERY, THAT PT GOT BUMP DUE TO AN EMERGENCY SURGERY. WILL BE HAVING THE PEG TUBE PLACE SHORTLY.
--- NOTE | 2019-07-13 15:42 | NUR ---
RETRIEVED PATIENT I PAD AND SET UP SKYPE WITH DAUGHTER SO PATINET COULD TALK WITH DAUGHTER AND . SKYPED FOR ABOUT 10 MINUTES WITH FAMILY. FAMILY REASSURING PATIENT OF PENDING PROCEDURE. ALSO BLOOD SUGAR CHECKED.
--- NOTE | 2019-07-13 16:16 | NUR ---
INFORMED FORM OR CHARGE CASE IS GOING TO GO TOMORROW. WAITING FOR DR TO INFORM PATIENT AND FAMILY
--- NOTE | 2019-07-13 16:31 | NUR ---
RETURNED TO ICU 5 REPORTED OFF TO RAD KIRK.
--- NOTE | 2019-07-13 16:36 | NUR ---
RETURN FROM DAY SURGEY. PT DID NOT GET PEG TUBE PLACED. DR RODRÍGUEZ SPOKE WITH PATIENT AND WILL CALL FAMILY WITH UPDATE. PLAN IS TO PLACE PEG TUBE TOMORROW. WILL KEEP NPO STATUS.
--- NOTE | 2019-07-13 18:40 | NUR ---
RECEIVED PT REPORT FROM [facility]. PT TO BE TRANSFERRED TO ROOM 334
--- NOTE | 2019-07-13 18:42 | NUR ---
PT REMAINED STABLE T/O SHIFT. WAS GOING TO GET A PEG TUBE PLACED TODAY BUT GOT PUT ON HOLD PER DR VIVAR. SPEECH THERAPY SPOKE WITH DR VIVAR AND NEW ORDERS TO DO A MODIFY BARIUM SWALLOW AND PROGRAM FACILITATOR TO RE-EVAL DIET PLAN. SCD'S PLACED ON BILATERAL LEGS DUE TO HEPARIN GTT DC'D AND HAVING CRANBERRY RED COLOR URINE. DR RODRÍGUEZ AWARE TO HOLD PEG TUBE PLACEMENT FOR NOW. FAMILY IS UPDATED WITH ALL NEW CHANGES AND NEW ROOM ASSIGNMENT.
[2019-07-14 06:09] LABS: Anion Gap 9 mmol/L (6-16); Blood Urea Nitrogen 13 mg/dL (8-24); Bun/Creatinine Ratio 18.1 (12.0-20.0); CO2, Blood 21 mmol/L (21-32); Calcium, Blood 8.8 mg/dL (8.5-10.1); Chloride, Blood 114 mmol/L (98-108); Creatinine, Blood 0.72 mg/dL (0.40-1.00); Glomerular Filtration Rate >60 (60-); Glucose, Blood 250 mg/dL (70-99); Magnesium, Blood 2.3 mg/dL (1.6-2.4); Phosphorus, Blood 3.4 mg/dL (2.5-4.9); Potassium, Blood 3.2 mmol/L (3.5-5.5); Sodium, Blood 144 mmol/L (136-145)
--- NOTE | 2019-07-14 06:09 | NUR ---
SHIFT SUMMARY ADMITTED FOR SEPSIS/UTI/PNEUMONIA. DNR CODE. BARIUM SWALLOW STUDY TODAY. PLAN FOR PEG TUBE PLACEMENT. CURRENTLY NPO. NS INFUSING @ 50 ML/HR, CLINIMIX INFUSING @ 50 ML/HR. CHANGED OUT TEMP LIVE DUE TO LIQUID BM AND POSSIBLE CONTAMINATION. NEW LIVE IN PLACE. URINE WAS RED AT BEGINNING OF SHIFT, NOW DRAINING YELLOW. POWERGLIDES IN BOTH AC'S.IV ANTIBIOTICS ARE SCHEDULED. ATTENDS IN PLACE, RA, STARLA 2 PERSON ASSIST/STAND - PIVOT. LIVES IN A SNF CURRENTLY. HX: CVA (EXPRESSIVE APHASIA, RT SIDED WEAKNESS), AORTIC VALVE MASS, HYPERLIPIDEMIA, HTN. CONSULT DR'S: GREY KILLIAN DONOVAN.
--- NOTE | 2019-07-14 08:20 | NUR ---
PT PLEASANT COOP A/O. SPEAKS WHISPER. PAST STROKE WITH RT ARM FLACID, RT LEG EXTREMELY WEAK, ONLY GROSS MOVEMENT. H/R REG, NO MURMER NOTED. NO TELE. LUNGS COARSE T/O. ON R/A. RESP EASY, UNLABORED. CALLED DR, ORDERS RECEIVED. SEE NOTE. BT HYPO. LAST BY YEST. LIVE CATH DRAINING YELLOW FLUID. PENDING MODIFIED BARIUM SWALLOW THIS AM. IF FAILS, EXPECTING PEG TUBE PLACEMENT. BED IN LOW POSITIOON, CALL LITE IN REACH, CALLS APPROP
[2019-07-14 10:08] LABS: B. HENSELAE IGG Negative titer (Neg:<1:320); B. HENSELAE IGM Negative titer (Neg:<1:100); B. QUINTANA IGG Negative titer (Neg:<1:320); B. QUINTANA IGM Negative titer (Neg:<1:100)
[2019-07-14 14:20] LABS: Stool Occult Blood Guaiac 1 Pos (Neg)
[2019-07-14 14:31] LABS: International Normalized Ratio 1.13
--- NOTE | 2019-07-14 18:20 | NUR ---
PT PLEASANT TODAY. DOES CALL APPROP. TALKS IN WHISPER. DID HAVE TO SUCTION MOUTH SEVERAL TIMES. OBTAINED ORDERS FOR DEEP SUCTION. DEANGELO RT STATES GOT BIG GLOB UP. PT STATES FEELS BETTER. LUNGS LIGHTLY COARSE IN BASES NOW. BP DOWN WITH HYDRALAZINE. NO OTHER CONCERNS AT THIS TIME. BED IN LOW POSITION, CALL LITE IN REACH, CALLS APPROP
[2019-07-15 05:03] LABS: BASOPHILS ABSOLUTE AUTO 0.08 K/mm3 (0.00-0.23); BASOPHILS PERCENT AUTO 1 % (0-2); EOSINOPHILS ABSOLUTE AUTO 0.42 K/mm3 (0.00-0.68); EOSINOPHILS PERCENT AUTO 2 % (0-6); Hematocrit 33.9 % (33.0-51.0); Hemoglobin 10.8 g/dL (11.5-16.0); IMMATURE GRAN ABSOLUTE AUTO 0.34 K/mm3 (0.00-0.10); IMMATURE GRAN PERCENT AUTO 2 % (0-1); LYMPHOCYTES ABSOLUTE AUTO 3.93 K/mm3 (0.84-5.20); LYMPHOCYTES PERCENT AUTO 23 % (21-46); MONOCYTES ABSOLUTE AUTO 0.79 K/mm3 (0.16-1.47); MONOCYTES PERCENT AUTO 5 % (4-13); Mean Corpuscular HGB 28.5 pg (26.0-34.0); Mean Corpuscular HGB Conc 31.9 g/dL (31.5-36.5); Mean Corpuscular Volume 89 fL (80-100); Mean Platelet Volume 10.4 fL (9.1-12.4); NEUTROPHILS ABSOLUTE AUTO 11.65 K/mm3 (1.96-9.15); NEUTROPHILS PERCENT AUTO 68 % (41-73); Platelet Count 538 K/mm3 (150-400); RDW Coefficient Variation 12.2 % (11.7-14.2); RDW Standard Deviation 39.9 fL (35.1-46.3); Red Blood Cell Count 3.79 M/mm3 (3.80-5.20); White Blood Cell Count 17.21 K/mm3 (4.00-11.30)
--- NOTE | 2019-07-15 05:29 | NUR ---
PT CONTINUES TO RECEIVE HEPARIN DRIP (SEE MAR FOR DOSE CHANGES, ETC.) HEPARIN DRIP TO STOP AT 0600 FOR AM PROCEDURS - PLACEMENT OF PEG TUBE FOR FEEDING. CURRENTLY RECEIVING CLINIMIX AT 50 ML/HR. NO NOTED CHANGES IN NEURO FUNCTIONS - FEELING IN ALL 4 EXT, BUT RUE FLACCID, SOME GROSS MOTOR MOVEMENT IN RLE, LEFT SIDE APPEARS TO BE FUNCTIONAL. NPO CONTINUES DUE TO FAILED SWALLOW STUDY. CALL LIGHT IN REACH.
[2019-07-15 05:52] LABS: Anion Gap 9 mmol/L (6-16); Blood Urea Nitrogen 15 mg/dL (8-24); Bun/Creatinine Ratio 23.7 (12.0-20.0); CO2, Blood 19 mmol/L (21-32); Calcium, Blood 8.7 mg/dL (8.5-10.1); Chloride, Blood 115 mmol/L (98-108); Creatinine, Blood 0.63 mg/dL (0.40-1.00); Glomerular Filtration Rate >60 (60-); Glucose, Blood 264 mg/dL (70-99); Phosphorus, Blood 3.2 mg/dL (2.5-4.9); Potassium, Blood 2.9 mmol/L (3.5-5.5); Sodium, Blood 143 mmol/L (136-145)
--- NOTE | 2019-07-15 09:07 | NUR ---
History, Chart, Medications and Allergies reviewed before start of procedure. Patient confirms NPO status and agrees with scheduled surgery. Pre-Op teaching done. Pt verbalizes understanding. PT HAS APHAGIA BUT CAN RESPOND WITH YES AND NOW AND SOME LIMITED SPEECH. PT IS VERY DIFFICULT TO UNDERSTAND.
--- NOTE | 2019-07-15 10:37 | NUR ---
07/15/19 Sara Martinez History, Chart, Medications and Allergies reviewed before start of procedure.PATIENT CONFIRMS NPO STATUS AND AGREES WITH SCHEDULED PROCEDURE. O2 VIA N/C INTACT THROUGHOUT SEDATION/PROCEDURE. 3-LEAD EKG REVIEWED WITH PHYSICIAN PRIOR TO START OF PROCEDURE. PATIENT CONFIRMS NPO STATUS AND AGREES WITH SCHEDULED PROCEDURE. MAC PROVIDED BY DR. WANG. Bite Block Placed.
[2019-07-15 13:09] LABS: Q FEVER PHASE I Negative (Neg:<1:16); Q FEVER PHASE II Negative (Neg:<1:16)
--- NOTE | 2019-07-15 17:18 | NUR ---
PATIENT IS ALERT. SHE IS ORIENTED TO SELF, SITUATION AND FOLLOWING DIRECTIONS. SHE HAD A PEG TUBE PLACED THIS MORNING. FEEDINGS WILL START TOMORROW MORNING. SHE IS NPO. AN ABDOMINAL BINDER IS IN PLACE TO PROTECT THE PEG TUBE. LIVE DRAINS. PATIENT HAS BEEN CALLING OUT ALL DAY FOR WATER, ORAL CARE HAS BEEN PERFORMED, SWABS ARE GIVEN TO THE PATIENT OFTEN. SHE COMPLAINED OF SOME PAIN THIS AFTERNOON WHERE THE PEG TUBE IS PLACED, TYLENOL SUPPOSITY WAS GIVEN FOR PAIN. WILL CONTINUE TO MONITOR
[2019-07-16 05:23] LABS: BASOPHILS ABSOLUTE AUTO 0.04 K/mm3 (0.00-0.23); BASOPHILS PERCENT AUTO 0 % (0-2); EOSINOPHILS ABSOLUTE AUTO 0.34 K/mm3 (0.00-0.68); EOSINOPHILS PERCENT AUTO 3 % (0-6); Hematocrit 38.9 % (33.0-51.0); Hemoglobin 12.5 g/dL (11.5-16.0); IMMATURE GRAN ABSOLUTE AUTO 0.17 K/mm3 (0.00-0.10); IMMATURE GRAN PERCENT AUTO 2 % (0-1); LYMPHOCYTES ABSOLUTE AUTO 2.27 K/mm3 (0.84-5.20); LYMPHOCYTES PERCENT AUTO 22 % (21-46); MONOCYTES ABSOLUTE AUTO 0.56 K/mm3 (0.16-1.47); MONOCYTES PERCENT AUTO 5 % (4-13); Mean Corpuscular HGB 28.8 pg (26.0-34.0); Mean Corpuscular HGB Conc 32.1 g/dL (31.5-36.5); Mean Corpuscular Volume 90 fL (80-100); Mean Platelet Volume 10.1 fL (9.1-12.4); NEUTROPHILS ABSOLUTE AUTO 7.09 K/mm3 (1.96-9.15); NEUTROPHILS PERCENT AUTO 68 % (41-73); Platelet Count 478 K/mm3 (150-400); RDW Coefficient Variation 12.4 % (11.7-14.2); Red Blood Cell Count 4.34 M/mm3 (3.80-5.20); White Blood Cell Count 10.47 K/mm3 (4.00-11.30)
[2019-07-16 05:54] LABS: Anion Gap 9 mmol/L (6-16); Blood Urea Nitrogen 10 mg/dL (8-24); Bun/Creatinine Ratio 15.6 (12.0-20.0); CO2, Blood 21 mmol/L (21-32); Calcium, Blood 8.4 mg/dL (8.5-10.1); Chloride, Blood 116 mmol/L (98-108); Creatinine, Blood 0.64 mg/dL (0.40-1.00); Glomerular Filtration Rate >60 (60-); Glucose, Blood 193 mg/dL (70-99); Phosphorus, Blood 2.8 mg/dL (2.5-4.9); Potassium, Blood 2.8 mmol/L (3.5-5.5); Sodium, Blood 146 mmol/L (136-145)
--- NOTE | 2019-07-16 08:00 | NUR ---
SPOKE TO DR VIVAR- OK TO USE PEG TUBE. PT HAS PT MEDS ORDERED WITH FOOD. PLACED DIETITION CONSULT FOR ENTERIC FEEDINGS. SPOKE TO DIETITION Farhat PALACIOS. PT CAN NOT HAVE MILK PRODUCTS SPECIAL FOOD WAS ORDERED AND SHOULD ARRIVE LATER TODAY. PT HAS PT POTASSIUM ORDERED POTASSIUM LEVEL THIS MORNING WAS 2.8. CALLED DR VIVAR TO SEE IF IV POTASSIUM WOULD BE BEST THIS MORNING PT HAS HAD NOTHING THROUGH THE PT AT THIS TIME. ALSO PT HAS ORDER FOR NYSTATIN SWISH AND SWALLOW, HOWEVER D/T ASPIRATION RISK THIS HAS BEEN BEING HELD POSSIBLY DIFUCAN IN ISAURA OF PO MEDICATION. DR WILL PLACE ORDER FOR DIFLUCAN, DC NYSTATIN OK TO GIVE THE POTASSIUM THROUGH THE PEG TUBE.
--- NOTE | 2019-07-16 11:07 | NUR ---
CHECKED RESIDUAL REMOVED 120ML OF AIR (GAS) AND 20ML OF RESIDUAL REINSTILLED. 120ML FLUSH OF WATER DONE, PT SEEMS TO HAVE TOLLERATED WELL.
--- NOTE | 2019-07-16 17:38 | NUR ---
SHIFT SUMMARY- PT ALERT AND ORIENTED TO SELF. PT MOANS LOUDLY TO CONVEY HER NEEDS. PT SPOUSE CALLED THIS EVENING TO CHECK IN. FAMILY IS AWARE THAT THE HOSPITAL IS NOT ALLOWING VISITORS AT THIS TIME. PT HAS BEEN SLEEPING SOUNDLY THIS AFTERNOON. SBP IN THE 160'S AFTER PT PO MEDS WERE GIVEN THROUGH THE PEG TUBE. PT PAIN SEEMS WELL MANAGED, 12.5 MCG OF FENTANYL WAS GIVEN ONCE THIS SHIFT.
--- NOTE | 2019-07-17 05:21 | NUR ---
SHIFT SUMMARY PT COMMUNICATES WITH POINTING AND NODDING HER HEAD YES/NO. UNABLE TO ASSESS ALERTNESS. PEG TUBE PATENT AND GAUZE AROUND CDI. PT HAS BEEN RESTING DURING SHIFT, SLEEPING. REPOSITIONED DURING SHIFT PT TOLERATED. RESIDUAL OF 50 DURING SHIFT. LIVE PATENT AND DRAINING.
[2019-07-17 05:32] LABS: BASOPHILS ABSOLUTE AUTO 0.03 K/mm3 (0.00-0.23); BASOPHILS PERCENT AUTO 0 % (0-2); EOSINOPHILS PERCENT AUTO 3 % (0-6); Hematocrit 31.8 % (33.0-51.0); Hemoglobin 10.4 g/dL (11.5-16.0); IMMATURE GRAN ABSOLUTE AUTO 0.17 K/mm3 (0.00-0.10); IMMATURE GRAN PERCENT AUTO 1 % (0-1); LYMPHOCYTES ABSOLUTE AUTO 3.35 K/mm3 (0.84-5.20); LYMPHOCYTES PERCENT AUTO 25 % (21-46); MONOCYTES ABSOLUTE AUTO 0.88 K/mm3 (0.16-1.47); MONOCYTES PERCENT AUTO 7 % (4-13); Mean Corpuscular HGB 29.2 pg (26.0-34.0); Mean Corpuscular HGB Conc 32.7 g/dL (31.5-36.5); Mean Corpuscular Volume 89 fL (80-100); Mean Platelet Volume 10.1 fL (9.1-12.4); NEUTROPHILS ABSOLUTE AUTO 8.65 K/mm3 (1.96-9.15); NEUTROPHILS PERCENT AUTO 64 % (41-73); Platelet Count 497 K/mm3 (150-400); RDW Coefficient Variation 12.9 % (11.7-14.2); Red Blood Cell Count 3.56 M/mm3 (3.80-5.20); White Blood Cell Count 13.48 K/mm3 (4.00-11.30)
[2019-07-17 05:55] LABS: Magnesium, Blood 2.2 mg/dL (1.6-2.4)
[2019-07-17 05:56] LABS: Anion Gap 7 mmol/L (6-16); Blood Urea Nitrogen 13 mg/dL (8-24); Bun/Creatinine Ratio 21.5 (12.0-20.0); CO2, Blood 21 mmol/L (21-32); Chloride, Blood 118 mmol/L (98-108); Creatinine, Blood 0.61 mg/dL (0.40-1.00); Glomerular Filtration Rate >60 (60-); Glucose, Blood 160 mg/dL (70-99); Phosphorus, Blood 3.2 mg/dL (2.5-4.9); Potassium, Blood 3.3 mmol/L (3.5-5.5); Sodium, Blood 146 mmol/L (136-145)
--- NOTE | 2019-07-17 19:59 | NUR ---
SHIFT SUMMARY- PT HAS HAD NO ACUTE CHANGE T/O THE SHIFT. PT SEEMS TO BE TOLLERATING THE NEW FORMULA WELL, NO C/O NAUSEA. SHE DID FEEL A LITTLE OVER FULL WHEN 150ML WAS GIVEN IN ISAURA OF THE 120 THAT HAD BEEN GIVEN, WILL ADVANCE PT CAN TOLLERATE. PASSED ON IN REPORT TO NIGHT RN. PT HAS BEEN MORE ALERT TODAY T/O THE DAY WHEN COMPARED TO YESTERDAY. PT SPOUSE CALLED AGAIN TO CHECK ON HER AND WAS UPDATED, PT SEEMS TO BE SLOWLY IMPROVING, LUNG SOUNDS STILL RALES AND WET LOOSE COUGH PRODUCING THICK YELLOW SPUTUM SUCTION AT THE BEDSIDE. SUCTION ORAL CARE PROVIDED Q4 ORDERED, PT PERFORMED FOR HERSELF THIS EVENING WITH SET UP ASSIST ONLY.
[2019-07-18 06:38] LABS: BASOPHILS ABSOLUTE AUTO 0.04 K/mm3 (0.00-0.23); BASOPHILS PERCENT AUTO 0 % (0-2); EOSINOPHILS PERCENT AUTO 1 % (0-6); Hematocrit 35.2 % (33.0-51.0); Hemoglobin 11.5 g/dL (11.5-16.0); IMMATURE GRAN ABSOLUTE AUTO 0.22 K/mm3 (0.00-0.10); IMMATURE GRAN PERCENT AUTO 1 % (0-1); LYMPHOCYTES ABSOLUTE AUTO 2.96 K/mm3 (0.84-5.20); LYMPHOCYTES PERCENT AUTO 17 % (21-46); MONOCYTES ABSOLUTE AUTO 1.04 K/mm3 (0.16-1.47); MONOCYTES PERCENT AUTO 6 % (4-13); Mean Corpuscular HGB Conc 32.7 g/dL (31.5-36.5); Mean Corpuscular Volume 89 fL (80-100); Mean Platelet Volume 10.8 fL (9.1-12.4); NEUTROPHILS ABSOLUTE AUTO 13.48 K/mm3 (1.96-9.15); NEUTROPHILS PERCENT AUTO 76 % (41-73); Platelet Count 555 K/mm3 (150-400); RDW Coefficient Variation 12.9 % (11.7-14.2); RDW Standard Deviation 41.4 fL (35.1-46.3); Red Blood Cell Count 3.96 M/mm3 (3.80-5.20); White Blood Cell Count 17.84 K/mm3 (4.00-11.30)
[2019-07-18 06:56] LABS: Anion Gap 8 mmol/L (6-16); Blood Urea Nitrogen 13 mg/dL (8-24); Bun/Creatinine Ratio 21.4 (12.0-20.0); CO2, Blood 20 mmol/L (21-32); Calcium, Blood 9.2 mg/dL (8.5-10.1); Chloride, Blood 112 mmol/L (98-108); Creatinine, Blood 0.61 mg/dL (0.40-1.00); Glomerular Filtration Rate >60 (60-); Glucose, Blood 248 mg/dL (70-99); Magnesium, Blood 2.1 mg/dL (1.6-2.4); Potassium, Blood 3.5 mmol/L (3.5-5.5); Sodium, Blood 140 mmol/L (136-145)
--- NOTE | 2019-07-18 07:20 | NUR ---
SHIFT SUMMARY PATIENT ALERT. ABLE TO SLEEP WELL OVERNIGHT. TOLERATED TUBE FEEDINGS WELL, ONLY HAD ONE BOUT OF NAUSEA. POWERGLIDES IN BOTH ARMS PATENT AND INFUSING. BED IN LOWEST POSITION WITH WHEELS LOCKED AND ALARM ON. CALL LIGHT WITHIN REACH. REPORT GIVEN TO ONCOMING RN.
--- NOTE | 2019-07-18 17:16 | NUR ---
PT HAS BEEN ALERT TO HERSELF AND TRYS TO RESPOND WHEN BEING TALKED TO. PT IS INCONTENT OF BOWELS AND HAS LIVE IN PLACE. RAMONE AREA IS VERY RED TODAY AND NYSTATIN POWDER HAS BEEN ORDERED. PT HAS DONE WELL WITH HER PEG TUBE FEEDING HOWEVER SHE WAS GETTING FULL AT 210 AND FEEDING HAVE BEEN ADJUSTED TO HELP HER TOLERATE VOLUME BETTER PER TENNIS BALL COVER CEMENTER. PT SITTING UP AT THIS TIME WILL CONTINUE TO MONITOR.
--- NOTE | 2019-07-18 18:43 | NUR ---
BP 181/84 TREAT PER EMAR WILL HAVE RADIO TOWER TECHNICIAN MONITOR.
[2019-07-19 06:12] LABS: Anion Gap 8 mmol/L (6-16); Blood Urea Nitrogen 17 mg/dL (8-24); Bun/Creatinine Ratio 25.3 (12.0-20.0); CO2, Blood 23 mmol/L (21-32); Chloride, Blood 110 mmol/L (98-108); Creatinine, Blood 0.67 mg/dL (0.40-1.00); Glomerular Filtration Rate >60 (60-); Glucose, Blood 179 mg/dL (70-99); Magnesium, Blood 2.2 mg/dL (1.6-2.4); Phosphorus, Blood 4.4 mg/dL (2.5-4.9); Potassium, Blood 4.1 mmol/L (3.5-5.5); Sodium, Blood 141 mmol/L (136-145)
--- NOTE | 2019-07-19 06:39 | NUR ---
SHIFT SUMMARY PATIENT ALERT AND ORIENTED OVERNIGHT. SHE SEEMED LESS ANXIOUS OVERNIGHT THAN SHE HAD BEEN PREVIOUS NIGHTS. NO IV PRESENT. BED IN LOWEST POSITION WITH WHEELS LOCKED AND ALARM ON. CALL LIGHT WITHIN REACH. REPORT GIVEN TO ONCOMING RN.
--- NOTE | 2019-07-19 06:44 | NUR ---
SHIFT SUMMARY PATIENT SLEPT MOST OF THE NIGHT. SHE IS TOLERATING HER 150 ML BOLUS TUBE FEEDINGS VERY WELL. PATIENT HAD SOME COMPLAINT OF PAIN AND WAS MEDICATED PER EMAR. BOTH POWERGLIDES PATENT AND INFUSING. BED IN LOWEST POSITION WITH WHEELS LOCKED AND ALARM ON. CALL LIGHT WITHIN REACH. REPORT GIVEN TO ONCOMING RN.
[2019-07-19 08:50] LABS: Hematocrit 32.5 % (33.0-51.0); Hemoglobin 10.4 g/dL (11.5-16.0); Mean Corpuscular Volume 91 fL (80-100); Mean Platelet Volume 10.3 fL (9.1-12.4); Platelet Count 494 K/mm3 (150-400); RDW Coefficient Variation 12.9 % (11.7-14.2); RDW Standard Deviation 42.1 fL (35.1-46.3); Red Blood Cell Count 3.59 M/mm3 (3.80-5.20)
[2019-07-19] MEDS ORDERED: Banatrol1 EACH PO (12:58)
[2019-07-19] MEDS ORDERED: Humalog100 UNIT/1 SC (12:58)
[2019-07-19] MEDS ORDERED: Pedi-Dri 100,0060 GM TOP (12:59)
--- NOTE | 2019-07-19 14:29 | NUR ---
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 [place] AMB IN FOR [facility] TRANSPORT @ 1400. PT IS ALERT, COOPERATIVE HOWEVER APHASIC D/T HX CVA w R SIDE DEFICITS/WEAKNESS, UNABLE TO AMBULATE. PG IV SITES BUE D/C INTACT. LIVE CATH PATENT/DRNG CL YELLOW URINE, EMPTIED PRIOR TO LEAVING. COAL HIKER PROVIDE BEDBATH, ORAL CARE PROVIDED THIS AM. MEDS & TF GIVEN THIS AM VIA PEG, PATENT, 60ML RESIDUAL. REPORT CALLED TO NR RN. 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
== END 2019-07-19 14:15 | DRG 871 ==
LOC: ER 13:04 → PCU 15:39 → ICUE 15:39 → MEDS 15:39 → ICUE 16:58 → MEDS 07-13 18:45
PROVIDERS: Family Medicine; Internal Medicine; Internal Medicine Infectious Disease; Nurse Practitioner Acute Care; Physician Assistant; Surgery; ADMIT Family Medicine
PROC: 0DH63UZ Insertion of Feeding Device into Stomach, Percutaneous Approach (ICD-10-PCS; principal; 2019-07-15 07:30)
DX: A41.89 Other specified sepsis (principal); G92 Toxic encephalopathy; J12.3 Human metapneumovirus pneumonia; I76 Septic arterial embolism; N39.0 Urinary tract infection, site not specified; I69.351 Hemiplegia and hemiparesis following cerebral infarction affecting right dominant side; R65.20 Severe sepsis without septic shock; R13.12 Dysphagia, oropharyngeal phase; I10 Essential (primary) hypertension; E78.5 Hyperlipidemia, unspecified; I69.320 Aphasia following cerebral infarction; I69.313 Psychomotor deficit following cerebral infarction; Z79.2 Long term (current) use of antibiotics; Z79.82 Long term (current) use of aspirin; E11.65 Type 2 diabetes mellitus with hyperglycemia; Z66 Do not resuscitate
CPT/HCPCS: 0099U; 31720; 36415; 51701; 51702; 70450; 71045; 74230; 80048; 80053; 81001; 82272; 82803; 82947; 83605; 83735; 84100; 85025; 85027; 85610; 85651; 85730; 86140; 86611; 86638; 87040; 87077; 87081; 87086; 87147; 87186; 87430; 87449; 92526; 92610; 92611; 93005; 93010; 93308; 94640; 94760; 96361; 96365; 97110; 97112; 97162; 97166; 97530; 99285-25; A9270; A9270-GY; C1751; C1769; J0295; J0360; J0696; J1644; J1720; J1815; J1940; J2405; J2543; J2704; J3010; J7030; J7120

== ENCOUNTER 2024-01-01 12:25 | Inpatient (IN) | payer OTHER ==
[~2024-01-01] VITALS: Ht 165.1 cm; Wt 106.0 kg
[~2024-01-01 12:25] MED LIST changes: +ACET325 PO; +AMOCLA875 PO; +ARMODAFINIL50 MG PO; +BASAGLAR K100 UNIT/1 SC; +Banatrol1 EACH PO; +Duoneb 2.5-0.5 M3 ML INH; +Humalog100 UNIT/1 SC; +PRED20 PO; +Pedi-Dri 100,0060 GM TOP
[2024-01-01 13:11] LABS: Source, Urine Straight Cath
[2024-01-01 13:15] LABS: Appearance, Urine Hazy (Clear); Bilirubin, Urine Neg (Neg); Blood, Urine 3+ (Neg); Color, Urine Yellow (P-Yellow); Glucose Qualitative, Urine 3+ (Neg); Ketones, Urine Neg (Neg); Leukocyte Esterase, Urine 3+ (Neg); Nitrite, Urine Neg (Neg); Protein, Urine 4+ (Neg); Specific Gravity, Urine 1.015 (1.003-1.022); Urobilinogen, Urine NORM (Normal)
[2024-01-01 13:24] LABS: Bacteria Many /hpf; Squamous Epithelial Cells Rare /hpf (Few); White Blood Cells, Urine 50-100 /hpf (0-5)
[2024-01-01 13:57] LABS: Hematocrit 29.3 % (33.0-51.0); Mean Corpuscular HGB 27.8 pg (26.0-34.0); Mean Corpuscular HGB Conc 30.7 g/dL (31.5-36.5); Mean Corpuscular Volume 90 fL (80-100); Platelet Count 513 K/mm3 (150-400); RDW Coefficient Variation 13.5 % (11.7-14.2); Red Blood Cell Count 3.24 M/mm3 (3.80-5.20); White Blood Cell Count 28.42 K/mm3 (4.00-11.30)
[2024-01-01 13:58] LABS: BASOPHILS ABSOLUTE AUTO 0.14 K/mm3 (0.00-0.23); BASOPHILS PERCENT AUTO 1 % (0-2); EOSINOPHILS ABSOLUTE AUTO 0.22 K/mm3 (0.00-0.68); EOSINOPHILS PERCENT AUTO 1 % (0-6); IMMATURE GRAN ABSOLUTE AUTO 1.24 K/mm3 (0.00-0.10); IMMATURE GRAN PERCENT AUTO 4 % (0-1); LYMPHOCYTES ABSOLUTE AUTO 1.93 K/mm3 (0.84-5.20); LYMPHOCYTES PERCENT AUTO 7 % (21-46); MONOCYTES ABSOLUTE AUTO 1.32 K/mm3 (0.16-1.47); MONOCYTES PERCENT AUTO 5 % (4-13); Mean Platelet Volume 10.2 fL (9.1-12.4); NEUTROPHILS ABSOLUTE AUTO 23.57 K/mm3 (1.96-9.15); NEUTROPHILS PERCENT AUTO 83 % (41-73)
[2024-01-01 14:07] LABS: Albumin, Blood 1.6 g/dL (3.4-5.0); Albumin/Globulin Ratio 0.3 (0.8-1.8); Bilirubin, Total 0.2 mg/dL (0.1-1.0); Bun/Creatinine Ratio 30.8 (12.0-20.0); Calcium, Blood 8.9 mg/dL (8.5-10.1); Creatinine, Blood 2.53 mg/dL (0.40-1.00); Globulin, Blood 6.1 g/dL (2.2-4.0); Potassium, Blood 5.1 mmol/L (3.5-5.5); Total Protein, Blood 7.7 g/dL (6.4-8.2)
[2024-01-01] MEDS ORDERED: Morphine Sulfate 10 MG/ML 1MLSYR IV ONE (14:20)
[2024-01-01] MEDS ORDERED: Ondansetron HCl 2 MG / ML 2ML Vial IV ONE (14:20)
[2024-01-01] MEDS ORDERED: NS 1,000 ML IV SCH ×3 (14:20→22:00)
[2024-01-01] MEDS ORDERED: Cefepime HCl 1,000 MG in NS 100 ML IV ONE (14:25)
[2024-01-01] MEDS ORDERED: Vancomycin HCL 2,000 MG in NS 500 ML IV ONE (14:30)
[2024-01-01] MEDS ORDERED: Lidocaine HCL 1% 10 ML MDV ONE (15:47)
[2024-01-01] MEDS ORDERED: Bupivacaine 0.5% HCl 5 MG/ML 30MLVIAL ONE (15:47)
[2024-01-01] MEDS ORDERED: Bupivacaine 0.5% Inj 10 ML Vial ONE (15:55)
[2024-01-01] MEDS ORDERED: Lactated Ringer's 1,000 ML IV SCH (16:05)
[2024-01-01 16:30] VITALS: BP 143/69
[2024-01-01 17:25] VITALS: BP 162/73
[2024-01-01 17:56] VITALS: BP 146/66
[2024-01-01] MEDS ORDERED: HYDROcodone 5-APAP 325 TAB PO PRN (18:40)
[2024-01-01] MEDS ORDERED: FentaNYL Citrate 50 MCG/ML 2 ML Injection IV PRN (18:40)
[2024-01-01] MEDS ORDERED: Ondansetron HCl 2 MG / ML 2ML Vial IV PRN (18:40)
--- NOTE | 2024-01-01 19:11 | NUR ---
SUMMARY PT ARRIVED TO UNIT FROM PACU. VSS. PT DRANK SOME WATER AND NOW IS SLEEPING. RUE FLACCID. BLE WEAK. PT USES WC BASELINE. SPOUSE CALLED AND UPDATED HOME MED LIST. PT RESTING WITH EYES CLOSED, BREATHING E/U. CALL LIGHT IN REACH. REPORT GIVEN TO ONCOMING SHIFT.
[2024-01-01 19:17] LABS: International Normalized Ratio 1.04; Prothrombin Time Results 11.1 Sec (9.7-11.5)
[2024-01-01 19:52] VITALS: BP 156/85
[2024-01-01] MEDS ORDERED: Ampicillin Sod/Sulbactam Sod 3 GM in NS 100 ML IV SCH (20:00)
[2024-01-01] MEDS ORDERED: Aspirin 81 MG Chew PO SCH (21:00)
[2024-01-01] MEDS ORDERED: Insulin Glargine-Yfgn 100 Unit/mL 3 ML SYR SC SCH (21:00)
[2024-01-01] MEDS ORDERED: Atorvastatin 40 MG Tab PO SCH (21:00)
[2024-01-01 21:16] VITALS: BP 167/71
[2024-01-02 01:08] VITALS: BP 142/61
[2024-01-02] MEDS ORDERED: Miconazole Nitrate 2% 85 GM PWD TOP SCH (02:03)
--- NOTE | 2024-01-02 02:45 | NUR ---
URINARY CONCERN PT USED CALL LIGHT R/T FEELING THE PUREWICK MAY NOT BE APPROPRIATELY PLACED AND THERE WAS POSSIBLE LEAKAGE. ATTENS WERE DRY c NO VISUALIZED LEAKAGE. DRESSING FOR R BUTTOCK I&D VISUALIZED TO BE OUT OF PLACE. PT REQUIRED 3 PERSON ASSISTANCE TO ROLL. R BUTTOCK SITE CLEANED c WOUND DEPARTMENT CLINICIAN. APPROX 1.5INCHES OF PACKING STICKING OUT OF SITE. GAUZE & OPTIFOAM c BORDER PLACED TO ENSURE DRESSING IS NOT DISLODGED AGAIN. BLADDER SCAN PERFORMED R/T OUTPUT OF 50mL IN PUREWICK COLLECTION CHAMBER. BS RESULTED c RETENTION >1791. PT STATED NO URGE TO URINATE. CATH PLACED TO DRAIN URINE. DURING LIVE INSERTION, WHITE PURULENT DRAINAGE VISUALIZED FROM RAMONE AREA. CALL MADE TO R/T RETENTION AMOUNT & NEW DRAINAGE. ORDERS FOR LIVE TO REMAIN INSERTED & UA. PT TOLERATED WELL, REPORTS SOME PAIN TO R SHOULDER c ROLLING & RAMONE AREA. LIVE DRAINING YELLOW URINE TO GRAVITY. CALL LIGHT IN REACH, BED IN LOWEST POSITION, NO FURTHER NEEDS STATED AT THIS TIME.
[2024-01-02 04:07] VITALS: BP 144/64
--- NOTE | 2024-01-02 05:06 | NUR ---
SHIFT SUMMARY POD 1 I&D R BUTTOCKS. VSS. TOLERATING ORALS. LIVE IN PLACE, DRAINING YELLOW URNIE TO GRAVITY. NO BM OVERNIGHT. R SIDED WEAKNESS R/T HX: CVA. BEDREST ORDERED, WHEELCHAIR USE @ BASELINE. PT REQUIRES 2-3 PERSON ASSIST c REPOSITIONING/ROLLING. CALL LIGHT IN REACH, BED IN LOWEST POSITION, WILL REPORT TO DAY RN.
[2024-01-02 05:11] LABS: BASOPHILS ABSOLUTE AUTO 0.08 K/mm3 (0.00-0.23); BASOPHILS PERCENT AUTO 0 % (0-2); EOSINOPHILS ABSOLUTE AUTO 0.41 K/mm3 (0.00-0.68); EOSINOPHILS PERCENT AUTO 1 % (0-6); Hematocrit 25.9 % (33.0-51.0); Hemoglobin 8.1 g/dL (11.5-16.0); IMMATURE GRAN ABSOLUTE AUTO 0.79 K/mm3 (0.00-0.10); IMMATURE GRAN PERCENT AUTO 3 % (0-1); LYMPHOCYTES ABSOLUTE AUTO 2.58 K/mm3 (0.84-5.20); LYMPHOCYTES PERCENT AUTO 9 % (21-46); MONOCYTES ABSOLUTE AUTO 1.53 K/mm3 (0.16-1.47); MONOCYTES PERCENT AUTO 5 % (4-13); Mean Corpuscular HGB 28.5 pg (26.0-34.0); Mean Corpuscular HGB Conc 31.3 g/dL (31.5-36.5); Mean Corpuscular Volume 91 fL (80-100); Mean Platelet Volume 9.8 fL (9.1-12.4); NEUTROPHILS ABSOLUTE AUTO 23.11 K/mm3 (1.96-9.15); NEUTROPHILS PERCENT AUTO 81 % (41-73); Platelet Count 480 K/mm3 (150-400); RDW Standard Deviation 46.8 fL (35.1-46.3); Red Blood Cell Count 2.84 M/mm3 (3.80-5.20)
[2024-01-02 05:11] LABS: Source, Urine Foley catheter
[2024-01-02 05:20] LABS: Appearance, Urine Hazy (Clear); Bilirubin, Urine Neg (Neg); Blood, Urine 3+ (Neg); Color, Urine Yellow (P-Yellow); Glucose Qualitative, Urine 3+ (Neg); Ketones, Urine Neg (Neg); Leukocyte Esterase, Urine 3+ (Neg); Nitrite, Urine Neg (Neg); Protein, Urine 4+ (Neg); Specific Gravity, Urine 1.015 (1.003-1.022); Urobilinogen, Urine NORM (Normal)
[2024-01-02 05:37] LABS: Bacteria Many /hpf; Squamous Epithelial Cells Few /hpf (Few); White Blood Cells, Urine 50-100 /hpf (0-5)
[2024-01-02 05:37] LABS: Bun/Creatinine Ratio 27.8 (12.0-20.0); Calcium, Blood 8.4 mg/dL (8.5-10.1); Creatinine, Blood 2.77 mg/dL (0.40-1.00); Potassium, Blood 5.4 mmol/L (3.5-5.5)
[2024-01-02 07:14] VITALS: BP 142/61
[2024-01-02] MEDS ORDERED: Insulin Human Lispro 100 Units/ML 3ML Syringe SC SCH (07:30)
[2024-01-02] MEDS ORDERED: AmLODIPine Besylate 5 MG Tab PO SCH (09:00)
[2024-01-02] MEDS ORDERED: Enoxaparin 40 MG/0.4 ML SYR SC SCH (09:00)
[2024-01-02] MEDS ORDERED: CefTRIAXone Sodium 1,000 MG in NS 100 ML IV SCH (09:00)
[2024-01-02] MEDS ORDERED: Losartan Potassium 50 MG Tab PO SCH (09:00)
[2024-01-02] MEDS ORDERED: HydrALAZINE HCl 20 MG / ML 1ML Vial IV PRN (13:35)
[2024-01-02 15:17] VITALS: BP 142/84
--- NOTE | 2024-01-02 18:49 | NUR ---
SUMMARY: PT IS POD1 R GLUT ABSCESS I&D. PT A/O, VSS. SURGICAL SITE WNL, DR. HALL CHANGED DRESSING TODAY, SCANT SS DRAINAGE. Q2 TURNS TODAY, PT HAS R SIDE WEAKNESS FROM CVA.LIVE IS DRAINING WELL. NYSTATIN APPLIED TO ABD FOLDS PER ORDER. PT EATING WELL, NO N/V. MEDICATED X1 FOR PAIN, PT ABLE TO MAKE NEEDS KNOWN. THIS RN SPOKE WITH PT TODAY AND UPDATED ON PLAN OF CARE. NO ACUTE SAFETY CONCERNS. CALL LIGHT IN REACH.
[2024-01-02 20:26] VITALS: BP 158/66
[2024-01-02] MEDS ORDERED: NS 1,000 ML IV SCH (21:25)
[2024-01-03 04:06] VITALS: BP 150/73
[2024-01-03 05:13] LABS: Hematocrit 25.8 % (33.0-51.0); Hemoglobin 7.8 g/dL (11.5-16.0); Mean Corpuscular HGB 27.9 pg (26.0-34.0); Mean Corpuscular HGB Conc 30.2 g/dL (31.5-36.5); Mean Corpuscular Volume 92 fL (80-100); Mean Platelet Volume 9.8 fL (9.1-12.4); NRBC ABSOLUTE 0.02 K/mm3 (0.00-0.02); NRBC Auto 0.1 /100 WBC (0.0-0.2); Platelet Count 488 K/mm3 (150-400); RDW Coefficient Variation 14.1 % (11.7-14.2); White Blood Cell Count 26.08 K/mm3 (4.00-11.30)
[2024-01-03 05:43] LABS: Calcium, Blood 8.1 mg/dL (8.5-10.1); Creatinine, Blood 3.8 mg/dL (0.40-1.00); Potassium, Blood 5.5 mmol/L (3.5-5.5)
--- NOTE | 2024-01-03 06:37 | NUR ---
SHIFT SUMMARY NOC. PT POD 2 FOR I&D TO R GLUTEAL. DRESSING C/D/I AND PER DAY SHIFT RN REPORT WAS CHANGED ON 01/02/2024. PT DENIES PAIN, N/V, AND IS PRODUCING URINE. PT HAS A LIVE DRAINING TO GRAVITY. PT RESTED WITH EYES CLOSED AND CALL LIGHT IN REACH.
[2024-01-03 07:33] VITALS: BP 92/76
[2024-01-03 07:34] VITALS: BP 146/99
[2024-01-03 07:35] VITALS: BP 127/105
[2024-01-03] MEDS ORDERED: Enoxaparin 30 MG/0.3 ML SYR SC SCH (09:00)
[2024-01-03] MEDS ORDERED: Polyethylene Glycol 3350 17 gm PO PRN (11:25)
[2024-01-03 15:22] VITALS: BP 162/72
--- NOTE | 2024-01-03 19:53 | NUR ---
SHIFT SUMMARY A/OX4, VSS, TOLERATING PO, GLUTEAL ABSESS DRESSING INTACT, C/O CONSTIPATION AND SHE WAS GIVEN MIRALAX FOR THIS, MOVED ROOMS DUE TO BEING IN ONE OF OUR SPECIALTY ROOMS AND NEEDING IT FOR ANOTHER PATIENT. TRANSFER WAS EXPLAINED TO HER AND SHE WAS AGREABLE TO IT. NO ACUTE EVENTS THIS SHIFT, CALL LIGHT IN REACH.
[2024-01-03 20:09] VITALS: BP 147/62
[2024-01-03] MEDS ORDERED: Docusate Sodium/Senna 1 Tab PO SCH (21:00)
[2024-01-03] MEDS ORDERED: Lactobacil 2-S.Thermo-Bifido 1 1 Cap PO SCH (21:00)
[2024-01-04] MEDS ORDERED: NS 250 ML IV PRN (01:55)
[2024-01-04 03:37] VITALS: BP 146/64
[2024-01-04 05:06] LABS: Hematocrit 26.4 % (33.0-51.0); Hemoglobin 8.1 g/dL (11.5-16.0); Mean Corpuscular HGB 28.1 pg (26.0-34.0); Mean Corpuscular HGB Conc 30.7 g/dL (31.5-36.5); Mean Corpuscular Volume 92 fL (80-100); Mean Platelet Volume 9.8 fL (9.1-12.4); Platelet Count 559 K/mm3 (150-400); RDW Coefficient Variation 13.9 % (11.7-14.2); RDW Standard Deviation 46.9 fL (35.1-46.3); Red Blood Cell Count 2.88 M/mm3 (3.80-5.20); White Blood Cell Count 27.01 K/mm3 (4.00-11.30)
--- NOTE | 2024-01-04 05:10 | NUR ---
SHIFT SUMMARY NOC. PT POD 3 FOR I&D TO RIGHT GLUTEAL. DRESSING CHANGED THIS SHIFT AND IS NOW C/D/I. PT MEDICATED FOR PAIN THIS SHIFT WITH ORAL NORCO. PT REPORTE DRELIEF OF SX. PT PRODUCING URINE VIA LIVE CATH DRAINING TO GRAVITY. PT RESTED WITH EYES CLOSED AND CALL LIGHT IN REACH.
[2024-01-04 05:15] LABS: Albumin, Blood 1.4 g/dL (3.4-5.0); Anion Gap 17 mmol/L (3-11); Blood Urea Nitrogen 79 mg/dL (8-24); Bun/Creatinine Ratio 16.1 (12.0-20.0); CO2, Blood 15 mmol/L (21-32); Calcium, Blood 8.1 mg/dL (8.5-10.1); Chloride, Blood 111 mmol/L (98-108); Creatinine, Blood 4.92 mg/dL (0.40-1.00); Glomerular Filtration Rate 9 (60-); Glucose, Blood 87 mg/dL (70-99); Magnesium, Blood 2.7 mg/dL (1.6-2.4); Phosphorus, Blood 6.3 mg/dL (2.5-4.9); Potassium, Blood 5.4 mmol/L (3.5-5.5); Sodium, Blood 138 mmol/L (136-145)
[2024-01-04 07:20] VITALS: BP 153/76
[2024-01-04] MEDS ORDERED: NS 500 ML IV SCH (07:55)
[2024-01-04] MEDS ORDERED: Heparin Sodium,Porcine 5,000 UNIT/0.5 ML SDV SC SCH (09:00)
[2024-01-04 14:28] VITALS: BP 148/66
--- NOTE | 2024-01-04 18:38 | NUR ---
SHIFT SUMMARY A/OX4, VSS, TOLERATING PO, PAIN MANAGED PER EMAR, REPOSITIONED T/O THE SHIFT TODAY, DRESSING CHANGED AND INCISION SITE IRRIGATED WITH WOUND COLD WORKING INSPECTOR, INCISIONO FILLED WITH PURULENT DRAINAGE WHEN OLD DRESSING WAS REMOVED, AFTER CLEANING OUT INCISION IT WAS PACKED WITH PLAIN PACKING, PADDED BANDAGE DRESSING PLACED. URINE SAMPLE SENT TO LAB ORDERED. NO ACUTE EVENTS THIS SHIFT, CALL LIGHT IN REACH.
[2024-01-04 19:14] VITALS: BP 138/62
[2024-01-04 19:40] LABS: Eosinophils-Raw #,Urine 7
[2024-01-04] MEDS ORDERED: Ampicillin Sod/Sulbactam Sod 3 GM in NS 100 ML IV SCH (21:00)
[2024-01-05 04:12] VITALS: BP 145/62
[2024-01-05 05:07] LABS: Hemoglobin 7.5 g/dL (11.5-16.0); Mean Corpuscular HGB 27.6 pg (26.0-34.0); Mean Corpuscular Volume 92 fL (80-100); Mean Platelet Volume 9.3 fL (9.1-12.4); Platelet Count 559 K/mm3 (150-400); RDW Standard Deviation 47.4 fL (35.1-46.3); Red Blood Cell Count 2.72 M/mm3 (3.80-5.20)
[2024-01-05 05:52] LABS: Albumin, Blood 1.5 g/dL (3.4-5.0); Anion Gap 18 mmol/L (3-11); Blood Urea Nitrogen 82 mg/dL (8-24); Bun/Creatinine Ratio 16.4 (12.0-20.0); CO2, Blood 16 mmol/L (21-32); Calcium, Blood 8.3 mg/dL (8.5-10.1); Chloride, Blood 111 mmol/L (98-108); Creatinine, Blood 4.99 mg/dL (0.40-1.00); Glomerular Filtration Rate 9 (60-); Glucose, Blood 90 mg/dL (70-99); Iron Serum 29 ug/dL (50-170); Magnesium, Blood 2.7 mg/dL (1.6-2.4); Percent Saturation 20.1 % (15.0-50.0); Phosphorus, Blood 7.2 mg/dL (2.5-4.9); Potassium, Blood 5.7 mmol/L (3.5-5.5); Sodium, Blood 139 mmol/L (136-145); Total Iron Binding Capacity 144 ug/dL (250-450)
[2024-01-05 07:13] VITALS: BP 165/69
--- NOTE | 2024-01-05 07:41 | NUR ---
SHIFT SUMMARY NOC. PT POD 4 FOR I&D TO RIGHT GLUTEAL. DRESSING CHANGED THIS SHIFT TWICE D/T SOILED FROM BM. PT MEDICATED FOR PAIN THIS SHIFT WITH REPORTED RELIEF. PT PRODUCING URINE VIA LIVE CATH. PT RESTED WITH EYES CLOSED AND CALL LIGHT IN REACH.
[2024-01-05] MEDS ORDERED: Sodium Zirconium Cyclosilicate 10 GM Packet PO SCH (09:00)
[2024-01-05 14:35] VITALS: BP 180/77
[2024-01-05] MEDS ORDERED: Sodium Bicarb 8.4% Inj 75 MEQ in Sodium Chloride 0.45% 1,000 ML IV SCH (16:05)
[2024-01-05] MEDS ORDERED: HydrALAZINE HCl 20 MG / ML 1ML Vial IV PRN (16:40)
[2024-01-05 17:13] VITALS: BP 156/62
--- NOTE | 2024-01-05 17:19 | NUR ---
SUMMARY PT PLACED ON 2L NC THIS AM FOR SATS OF 88-90 ON RA. PT TACHYPNIC AT TIMES. IS PROVIDED. REPOSITIONED PT T/O DAY. PAINFUL FOR PT TO LIE ON SIDE WITH I&D TO R BUTTOCK. DRESSING CHANGED AND SITE CLEANED THIS SHIFT. PT HAD BM THIS SHIFT. MEDICATED PER ORDERS FOR PAIN. MEDICATED ONCE DURING SHIFT FOR NAUSEA. PT PLEASANT AND COOPERATIVE. CALL LIGHT IN REACH.
[2024-01-05 19:25] VITALS: BP 158/93
[2024-01-05] MEDS ORDERED: Doxazosin Mesylate 2 MG Tab PO SCH (21:00)
[2024-01-05 22:39] VITALS: BP 147/68
--- NOTE | 2024-01-06 00:15 | NUR ---
TRANSFERRED TO PCU 13 PER BED DUE TO NURSING PARCEL POST DELIVERY REQUEST FOR STAFFING NEEDS.
[2024-01-06 00:34] VITALS: BP 153/65
[2024-01-06 03:26] VITALS: BP 149/59
[2024-01-06 04:17] LABS: Albumin, Blood 1.4 g/dL (3.4-5.0); Anion Gap 14 mmol/L (3-11); Blood Urea Nitrogen 68 mg/dL (8-24); Bun/Creatinine Ratio 15.9 (12.0-20.0); CO2, Blood 19 mmol/L (21-32); Chloride, Blood 111 mmol/L (98-108); Creatinine, Blood 4.28 mg/dL (0.40-1.00); Glomerular Filtration Rate 11 (60-); Glucose, Blood 182 mg/dL (70-99); Phosphorus, Blood 6.6 mg/dL (2.5-4.9); Potassium, Blood 5.1 mmol/L (3.5-5.5); Sodium, Blood 139 mmol/L (136-145)
[2024-01-06 07:35] VITALS: BP 137/60
[2024-01-06 15:30] VITALS: BP 140/70
[2024-01-06] MEDS ORDERED: Sodium Bicarb 8.4% Inj 75 MEQ in Sodium Chloride 0.45% 1,000 ML IV SCH (17:05)
--- NOTE | 2024-01-06 17:46 | NUR ---
SHIFT SUMMARY PT A&Ox4, CALLS AND COMMUNICATES NEEDS APPROPRIATELY. Hx OF CVA w/ R SIDED DEFICITS AND SLIGHTLY MUMBLED SPEECH. BP STABLE, NO TELE, HR 70's, DENIES CP/PRESSURE. SpO2> 92% 2-3L VIA NC, DENIES SOB. WHEN TRIED TO TITRATE O2 DOWN, PT DESATURATED TO MID 80's ON RA. LIVE CATH REMAINS IN PLACE, DRAINING CLEAR YELLOW URINE TO GRAVITY. A FEW LOOSE/FORMED & DARK BROWN BMs THIS SHIFT. PT 1-2 ASSIST STAND-PIVOT TO CHAIR. Q2 TURNS PROVIDED. FRESH MEPILEX PLACED ON I&D SITE. MANAGED PTs PAIN PER EMAR. NO OTHER EVENTS, WILL REPORT TO ONCOMING RN.
[2024-01-06 18:19] LABS: COMPLEMENT COMPONENT 3 202 mg/dL (90-180); COMPLEMENT COMPONENT 4 42 mg/dL (10-40)
[2024-01-06 21:14] VITALS: BP 156/71
[2024-01-07 03:37] VITALS: BP 144/69
[2024-01-07 04:30] LABS: Albumin, Blood 1.4 g/dL (3.4-5.0); Anion Gap 13 mmol/L (3-11); Blood Urea Nitrogen 60 mg/dL (8-24); Bun/Creatinine Ratio 16.4 (12.0-20.0); CO2, Blood 23 mmol/L (21-32); Chloride, Blood 110 mmol/L (98-108); Creatinine, Blood 3.66 mg/dL (0.40-1.00); Glomerular Filtration Rate 13 (60-); Glucose, Blood 107 mg/dL (70-99); Phosphorus, Blood 5.4 mg/dL (2.5-4.9); Potassium, Blood 4.6 mmol/L (3.5-5.5); Prealbumin, Blood 14.1 mg/dL (20.0-40.0); Sodium, Blood 141 mmol/L (136-145)
--- NOTE | 2024-01-07 06:08 | NUR ---
SHIFT SUMMARY SURGICAL NO TELE STATUS PATIENT ALERT, ORIENTED x4. Hx STROKE WITH DEFECITS. PATIENT ABLE TO MAKE NEEDS KNOWN, SOME DYSPHAGIA BUT PATIENT ABLE TO COMMUNICATE WITH STAFF. BP STABLE. PATIENT ON 2L NC WITH SPO2 >90%. DRESSING TO RIGHT BUTTOCK C/D/I. MEDICATED PER EMAR FOR PAIN. PATIENT ASSISTING WITH CARE AND TURNS. LIVE IN PLACE FOR STRICT I/Os. NO OTHER CHANGES THIS SHIFT, WILL REPORT TO DAY SHIFT RN.
[2024-01-07 07:15] VITALS: BP 131/65
[2024-01-07] MEDS ORDERED: Ampicillin Sod/Sulbactam Sod 3 GM in NS 100 ML IV SCH (09:00)
[2024-01-07] MEDS ORDERED: Amoxicillin/Clavulanate K 500 MG Tab PO SCH (09:00)
[2024-01-07 15:00] VITALS: BP 135/66
--- NOTE | 2024-01-07 18:27 | NUR ---
End of Shift Pt surgical no telemetry status. A&O x4 w/ R sided weakness. VSS. Spo2 > 92% on 2-3L NC w/ pt report of RA at baseline. Pt c/o pain in lower back & R buttocks. Pt reporting pain improved w/ PRN pain medication per EMAR/pt request. R buttocks wound cleansed & redressed this shift. Garcia cath patent & draining clear yellow urine.
[2024-01-07 21:31] VITALS: BP 146/66
[2024-01-08] VITALS (20 sets, daily range): BP systolic 153–165; BP diastolic 63–74
[2024-01-08 03:55] LABS: Hematocrit 21.7 % (33.0-51.0); Hemoglobin 6.6 g/dL (11.5-16.0); Mean Corpuscular HGB 27.5 pg (26.0-34.0); Mean Corpuscular HGB Conc 30.4 g/dL (31.5-36.5); Mean Corpuscular Volume 90 fL (80-100); Mean Platelet Volume 9.4 fL (9.1-12.4); NRBC ABSOLUTE 0.03 K/mm3 (0.00-0.02); NRBC Auto 0.2 /100 WBC (0.0-0.2); Platelet Count 629 K/mm3 (150-400); RDW Coefficient Variation 13.5 % (11.7-14.2); RDW Standard Deviation 44.7 fL (35.1-46.3); White Blood Cell Count 19.75 K/mm3 (4.00-11.30)
[2024-01-08 04:42] LABS: Albumin, Blood 1.4 g/dL (3.4-5.0); Anion Gap 12 mmol/L (3-11); Blood Urea Nitrogen 55 mg/dL (8-24); Bun/Creatinine Ratio 16.8 (12.0-20.0); CO2, Blood 24 mmol/L (21-32); Chloride, Blood 110 mmol/L (98-108); Creatinine, Blood 3.28 mg/dL (0.40-1.00); Glomerular Filtration Rate 15 (60-); Glucose, Blood 149 mg/dL (70-99); Phosphorus, Blood 4.5 mg/dL (2.5-4.9); Potassium, Blood 4.3 mmol/L (3.5-5.5); Sodium, Blood 142 mmol/L (136-145)
--- NOTE | 2024-01-08 05:50 | NUR ---
Shift Summary- Patient slept most of the night. Alert and oriented x4- able to make all needs and wants known. Oxygen up to 4L- o2 saturation above 92% when asleep- patient tends to remove nasal cannula at night and de-sats, but quickly recovers when it is reapplied. Turned every two hours for comfort- she denies pain throughout the entire shift- though she did complain of pain during the dressing change. Of note- during the dressing change on L buttock, appears to be packing(?) and a good amount of thick, green, chunky pus oozing from the IND incision site. The drainage and packing(?) comes out naturally and on its own, without any manipulation or touching of the site. L buttock is tender and warm to the touch.
--- NOTE | 2024-01-08 07:44 | NUR ---
MORNING CBG 58. PT GIVEN A CHOCOLATE ENSURE AND CHOCOLATE PUDDING FOR HYPOGLYCEMIA PER REQUEST. PT ASYMPTOMATIC. RECHECK IN ABOUT AN HOUR. VS STABLE. WE ARE WAITING ON HER BLOOD SLIP FOR 1 UNIT OF PRBC FOR HGB <7. SEE NOTES FOR UPDATES.
[2024-01-08] MEDS ORDERED: NS 500 ML IV SCH (08:00)
[2024-01-08] MEDS ORDERED: BASAGLAR K100 UNIT/6 SC (10:30)
[2024-01-08] MEDS ORDERED: FLUT1DIS2 INH (10:31)
[2024-01-08] MEDS ORDERED: ALBU90OI INH (10:32)
[2024-01-08] MEDS ORDERED: Ventolin5 MG/1 ML INH (10:33)
[2024-01-08 12:40] LABS: Hematocrit 25.9 % (33.0-51.0); Hemoglobin 8.2 g/dL (11.5-16.0)
--- NOTE | 2024-01-08 13:37 | NUR ---
MORNING SUMMARY PT REMAINS A&OX4, CALLS APPROPRAITELY, AND MAKES HER NEEDS KNOWN. SHE RECIEVED ONE UNIT PRBC THIS MORNING AND HGB HAS IMPROVED. HER BLOOD SUGAR HAS STABILIZED WITH PO INTAKE. THE PT REMAINS ON 1-2 L NC TO MAINTAIN SP02>90%. SHE DENIES ANY SOB. THE PT WAS MEDICATED ONCE FOR PAIN, AND HAS STANDING ORDERS PRN. HER KATHYA CALLED FOR AN UPDATE, AND DURING THE UPDATE HE NOTIFIED STAFF THAT HE HAS A HOSPITAL BED AND [facility] LIFT SET UP FOR WHEN THE PT NEEDS TO DISCHARGE. KATHYA STATED THAT IF THE PT DISCHARGES HOME WITH A LIVE CATH, THAT HE WOULD WANT A NURSE TO HELP COME OUT FOR LIVE MANAGEMENT. HE DID STATE HE HAS AN EXTERNAL WICKING SYSTEM THAT THE PT WAS USING PRIOR TO ADMISSION. THIS WAS DISCUSSED WITH CASE MANAGEMENT. SEE NOTES FOR ANY UPDATES. WOULD WANT A NURSE
--- NOTE | 2024-01-08 17:43 | NUR ---
END OF SHIFT SUMMARY/UPDATES. THE PT REMAINS A&OX4, CALLS APPROPRAITELY. SHE HAD WOUND CARE COMPLETED WITH ASSISTANCE OF THE PATIENT REPRESENTATIVE CORAZON. THE PT HAD PACKING W/ GREEN PURULENT DRAINAGE WEEPING FROM HER RIGHT GLUTEAL WOUND. THE SITE HAD OLD PACKING REMOVED, IT WAS STERILELY WASHED OUT WITH NORMAL SALINE, REPACKED (TAIL LEFT OUT), REINFORCED WITH GAUZE, AND A DRESSING PLACED. WOUND CARE ORDERS WERE OBTAINED WITH DR. MCDERMOTT AND HE WAS MADE AWARE OF THE DRAINAGE. THE PT WAS TITRAITED OFF OF ROOM AIR WHILE AWAKE AND SP02 >90%. THE PT DENIES SOB. SHE WAS MEDICATED PER [facility] FOR PAIN THIS AFTERNOON. SEE NOTES FOR ANY UPDATES.
[2024-01-08 18:49] LABS: ALBUMIN 1.83 g/dL (3.75-5.01); ALPHA 1 GLOBULIN 0.72 g/dL (0.19-0.46); ALPHA 2 GLOBULIN 1.52 g/dL (0.48-1.05); BETA GLOBULIN 0.96 g/dL (0.48-1.10); GAMMA 1.17 g/dL (0.62-1.51); IMMUNOFIXATION REFLEX IFE Done; TOTAL PROTEIN,SERUM 6.2 g/dL (6.3-8.2)
[2024-01-08 18:50] LABS: IMMUNOGLOBULIN A 340 mg/dL (68-408); IMMUNOGLOBULIN G 1311 mg/dL (768-1632); IMMUNOGLOBULIN M 46 mg/dL (35-263)
[2024-01-08] MEDS ORDERED: Nystatin 100,000 Unit/ML Susp 5 ML UDC SS SCH (21:00)
--- NOTE | 2024-01-08 21:54 | NUR ---
Patient transferred to medical room 329- sent with all belongings VSS on RA and in no apparent distress. Sent with medications including insulin pens. REAGAN Stone given verbal report.
--- NOTE | 2024-01-08 22:04 | NUR ---
pt arrived to medical floor [id number] @2150. pt remained in pcu bed, no transfer needed. pt is on 2 liters o2 via nasal cannula. no acute distress noted at this time. call light within reach, pt able to make her needs known. bed at the lowest position, bed alarm for safety.
--- NOTE | 2024-01-09 03:15 | NUR ---
SHIFT SUMMARY NO ACUTE EVENTS DURING THIS SHIFT. BED AT THE LOWEST POSITION, CALL LIGHT WITHIN REACH.
[2024-01-09 05:49] VITALS: BP 176/68
[2024-01-09 07:43] VITALS: BP 149/69
[2024-01-09 09:31] LABS: Hematocrit 24.6 % (33.0-51.0); Hemoglobin 7.7 g/dL (11.5-16.0); Mean Corpuscular HGB 27.9 pg (26.0-34.0); Mean Corpuscular HGB Conc 31.3 g/dL (31.5-36.5); Mean Corpuscular Volume 89 fL (80-100); Mean Platelet Volume 9.3 fL (9.1-12.4); Platelet Count 659 K/mm3 (150-400); RDW Coefficient Variation 14.6 % (11.7-14.2); RDW Standard Deviation 46.9 fL (35.1-46.3); Red Blood Cell Count 2.76 M/mm3 (3.80-5.20); White Blood Cell Count 17.71 K/mm3 (4.00-11.30)
[2024-01-09 09:52] LABS: Albumin, Blood 1.5 g/dL (3.4-5.0); Anion Gap 12 mmol/L (3-11); Blood Urea Nitrogen 47 mg/dL (8-24); Bun/Creatinine Ratio 16.2 (12.0-20.0); CO2, Blood 25 mmol/L (21-32); Calcium, Blood 8.4 mg/dL (8.5-10.1); Chloride, Blood 109 mmol/L (98-108); Glomerular Filtration Rate 18 (60-); Glucose, Blood 237 mg/dL (70-99); Phosphorus, Blood 4.3 mg/dL (2.5-4.9); Potassium, Blood 4.8 mmol/L (3.5-5.5); Sodium, Blood 141 mmol/L (136-145)
--- NOTE | 2024-01-09 11:26 | NUR ---
WOUND CARE COMPLETED THIS MORNING. PT SOILED PREVIOUS DRESSING WITH STOOL. FULL BED BATH PERFORMED WOUND DRESSING REMOVED. WOUND PRODUCED COPIOUS AMOUNTS OF THICK MILKY PRURULENT DRAINAGE, T/O THE BED BATH, FAINT ODOR NOTED. FRESH PACKING IN PLACE WITH GAUZE COVERING, PLACED MEPILEX OVER THE WOUND DRESSING WITH PAPER TAPE TO SECURE.
[2024-01-09 14:44] LABS: Hematocrit 25.5 % (33.0-51.0); Mean Corpuscular HGB 27.8 pg (26.0-34.0); Mean Corpuscular HGB Conc 31.4 g/dL (31.5-36.5); Mean Corpuscular Volume 89 fL (80-100); Mean Platelet Volume 9.1 fL (9.1-12.4); Platelet Count 641 K/mm3 (150-400); RDW Coefficient Variation 14.4 % (11.7-14.2); RDW Standard Deviation 45.9 fL (35.1-46.3); Red Blood Cell Count 2.88 M/mm3 (3.80-5.20)
[2024-01-09 16:14] VITALS: BP 166/84
--- NOTE | 2024-01-09 19:51 | NUR ---
SHIFT SUMMARY- PT HAS HAD A FULL BED CHANGE TWICE AND A DRESSING CHANGE 3 TIMES. THE LAST DRESSING CHANGE D/T SOILING FROM BOWEL INCONTINENCE WAS AFTER BEDSIDE REPORT. FULL LINNEN CHANGE, AND DRESSING CHANGE COMPLETED. THE OUTER EDGE OF THE DRESSING WAS COMPRIMIZED WITH STOOL, THE INNER PORTION (GAUZE) AND PACKING WERE IN TACT. PT HAD VOMITED WHILE EATING HER DINNER, SHE DENIES CHOKING, BUT THERE WERE LARGE PIECES OF FOOD IN THE EMESIS. NIGHT RN IS AWARE. UNMEASURED EMESIS. PLAN IS FOR THE PT TO DC HOME TOMORROW WITH HER SPOUSE HER ACCOUNTING GENERALIST CAREGIVER, WITH DAILY WOUND CARE AND DRESSING CHANGES, REGULAR ATTENDS CHANGES, AND A KRISSY LIFT AND CATHETER. HOME HEALTH WILL BE ORDERED TO MONITOR WOUND CARE AND CATHETER WELL BATH AID AND THERAPIES. PT IN BED CALL LIGHT IN REACH NO S&S OF DISTRESS NOTED. NIGHT RN AWARE AND WILL MONITOR.
[2024-01-09 19:55] VITALS: BP 168/72
[2024-01-10 03:50] VITALS: BP 166/66
--- NOTE | 2024-01-10 04:08 | NUR ---
SHIFT SUMMARY: NO ACUTE CHANGES. PLEASANT AND COOPERATIVE WITH CARE. REPOSITIONED PT T/O SHIFT. BLE ELEVATED ON PILLOWS. RESP EVEN ON RA. SALINE LOCKED. TOOK PILLS WHOLE ONE AT A TIME WITH WATER WITHOUT DIFFICULTY, NO CHOKING OR COUGHING NOTED. DRESSING TO RIGHT GLUTEAL BUTTOCK WOUND, DRESSING CLEAN AND INTACT. SKIN BARRIER CREAM APPLIED TO FRAGILE AREAS OF THE BUTTOCKS. USED CALL LT WHEN NEEDED. ABLE TO STATE NEEDS APPROPRIATELY. LIVE CATHETER PATENT AND DRAINING. WILL CONTINUE TO PROVIDE CARE UNTIL SHIFT REPORT TO ONCOMING NURSE.
[2024-01-10 05:35] LABS: BASOPHILS ABSOLUTE AUTO 0.08 K/mm3 (0.00-0.23); BASOPHILS PERCENT AUTO 1 % (0-2); EOSINOPHILS ABSOLUTE AUTO 0.19 K/mm3 (0.00-0.68); EOSINOPHILS PERCENT AUTO 1 % (0-6); Hematocrit 26.4 % (33.0-51.0); Hemoglobin 8.2 g/dL (11.5-16.0); IMMATURE GRAN ABSOLUTE AUTO 0.46 K/mm3 (0.00-0.10); IMMATURE GRAN PERCENT AUTO 3 % (0-1); LYMPHOCYTES ABSOLUTE AUTO 1.95 K/mm3 (0.84-5.20); LYMPHOCYTES PERCENT AUTO 12 % (21-46); MONOCYTES ABSOLUTE AUTO 1.16 K/mm3 (0.16-1.47); MONOCYTES PERCENT AUTO 7 % (4-13); Mean Corpuscular HGB 27.5 pg (26.0-34.0); Mean Corpuscular HGB Conc 31.1 g/dL (31.5-36.5); Mean Corpuscular Volume 89 fL (80-100); Mean Platelet Volume 9.3 fL (9.1-12.4); NEUTROPHILS ABSOLUTE AUTO 12.95 K/mm3 (1.96-9.15); NEUTROPHILS PERCENT AUTO 77 % (41-73); Platelet Count 674 K/mm3 (150-400); RDW Coefficient Variation 14.1 % (11.7-14.2); RDW Standard Deviation 45.1 fL (35.1-46.3); Red Blood Cell Count 2.98 M/mm3 (3.80-5.20); White Blood Cell Count 16.79 K/mm3 (4.00-11.30)
[2024-01-10 06:03] LABS: Albumin, Blood 1.6 g/dL (3.4-5.0); Anion Gap 14 mmol/L (3-11); Blood Urea Nitrogen 45 mg/dL (8-24); Bun/Creatinine Ratio 17.6 (12.0-20.0); CO2, Blood 24 mmol/L (21-32); Calcium, Blood 8.9 mg/dL (8.5-10.1); Chloride, Blood 109 mmol/L (98-108); Creatinine, Blood 2.55 mg/dL (0.40-1.00); Glomerular Filtration Rate 21 (60-); Glucose, Blood 209 mg/dL (70-99); Phosphorus, Blood 3.9 mg/dL (2.5-4.9); Sodium, Blood 142 mmol/L (136-145)
[2024-01-10 07:39] VITALS: BP 166/72
--- NOTE | 2024-01-10 07:50 | NUR ---
AM MEDS PT VOMITED WHILE TAKING MEDICATIONS. PT VOMITED OUT NORCO, PROBIOTIC, AND AUGMENTIN PILL. PT DID NOT ASPIRATE ANY EMESIS. PT WAS UP AT 90 DEGREES. PT IN NO APPARENT RESPIRATORY DISTRESS, BREATHS ARE EVEN AND UNLABORED.
[2024-01-10 15:12] VITALS: BP 176/78
[2024-01-10] MEDS ORDERED: NS 1,000 ML IV SCH (19:00)
--- NOTE | 2024-01-10 19:16 | NUR ---
SHIFT SUMMARY PT IS A&OX4. PT ADMITTED DUE TO IND OF COCCYX WOUND. PT HAS SLURRED SPEECH. PT THREW UP HER MEDS THIS MORNING, SINCE HAS BEEN GETTING HER PILLS CRUSHED IN APPLESAUCE. SHE HASN'T BEEN EATING ADEQUATELY AND HAS BEEN REFUSING MEALS. PT ON BEDREST, AND WORKED WITH PT TODAY. HAS A URINARY CATH. PT HAS R SIDE DEFICITS FROM PREVIOUS HX OF CVA. SHES PLEASANT AND COOROPERATIVE AND ABLE TO MAKE HER NEEDS KNOWN. WAS EDUCATED ON WOUND DRESSING CHANGES. DRESSING CHANGE WAS COMPLETED TODAY ON COCCYX, PURELENT DRAINAGE PRESENT AND MEPILEX IN PLACE. PT REPORTED PAIN DURING SHIFT AND REPORTED RELIEF WITH REST AND PAIN MEDS PER EMAR. PT ON 3L VIA N/C. CALL LIGHT IN REACH.
[2024-01-10 19:21] VITALS: BP 169/67
--- NOTE | 2024-01-10 21:34 | NUR ---
PT VOMITED PM MEDS PT APPEARS TO BE CHOKING ON HER MEDS, EVEN WHEN CRUSHED IN APPLESAUCE. IT WAS REPORTED TO US THAT SHE DID THE SAME THING THIS MORNING WELL. HER BED WAS ELEVATED TO 90 DEGREES. I AM CONCERNED ABOUT PO INTAKE WITHOUT A SWALLOW EVAL. SHE DENIED NAUSEA.
[2024-01-11 03:31] VITALS: BP 168/68
[2024-01-11 05:23] LABS: BASOPHILS ABSOLUTE AUTO 0.08 K/mm3 (0.00-0.23); BASOPHILS PERCENT AUTO 1 % (0-2); EOSINOPHILS ABSOLUTE AUTO 0.16 K/mm3 (0.00-0.68); EOSINOPHILS PERCENT AUTO 1 % (0-6); Hemoglobin 7.7 g/dL (11.5-16.0); IMMATURE GRAN ABSOLUTE AUTO 0.35 K/mm3 (0.00-0.10); IMMATURE GRAN PERCENT AUTO 2 % (0-1); LYMPHOCYTES ABSOLUTE AUTO 2.02 K/mm3 (0.84-5.20); LYMPHOCYTES PERCENT AUTO 13 % (21-46); MONOCYTES ABSOLUTE AUTO 1.15 K/mm3 (0.16-1.47); MONOCYTES PERCENT AUTO 7 % (4-13); Mean Corpuscular HGB 27.7 pg (26.0-34.0); Mean Corpuscular HGB Conc 30.8 g/dL (31.5-36.5); Mean Corpuscular Volume 90 fL (80-100); Mean Platelet Volume 9.2 fL (9.1-12.4); NEUTROPHILS ABSOLUTE AUTO 11.89 K/mm3 (1.96-9.15); NEUTROPHILS PERCENT AUTO 76 % (41-73); Platelet Count 631 K/mm3 (150-400); RDW Standard Deviation 45.3 fL (35.1-46.3); Red Blood Cell Count 2.78 M/mm3 (3.80-5.20); White Blood Cell Count 15.65 K/mm3 (4.00-11.30)
--- NOTE | 2024-01-11 05:37 | NUR ---
SHIFT SUMMARY: PT IS A SWEET 63 YEAR OLD WOMAN DNR.PT HAS A LIVE BUT INCONTINENT TO STOOL. PT IS R SIDE DEFECIT FROM A HISTORY OF A STROKE. PT IS ON 3 L OF OXYGEN AND HAS A WOUND ON HER BUTTOCKS AND DRESSING WAS CHANGED. PT IS BED REST AND HAS TROUBLE TAKING MEDICATION. SHE THREW UP NIGHT TIME PO MEDS CRUSHED WITH APPLESAUCE. PT DID TAKE A CRUSHED PAIN MED MIXED WITH A SMALL AMOUNT OF WATER WELL. PT IS A&OX4 AND ANSWERS QUESTIONS AND IS COOPERATIVE. PT IS ON CONTINUOUS FLUIDS, PT ALSO HAD A MEDIUM SIZED BOWEL MOVEMENT. WITH CALL LIGHT IN REACH.
[2024-01-11 06:15] LABS: Albumin, Blood 1.6 g/dL (3.4-5.0); Anion Gap 12 mmol/L (3-11); Blood Urea Nitrogen 39 mg/dL (8-24); Bun/Creatinine Ratio 16.4 (12.0-20.0); CO2, Blood 23 mmol/L (21-32); Chloride, Blood 111 mmol/L (98-108); Creatinine, Blood 2.38 mg/dL (0.40-1.00); Glomerular Filtration Rate 22 (60-); Glucose, Blood 215 mg/dL (70-99); Magnesium, Blood 2.3 mg/dL (1.6-2.4); Phosphorus, Blood 3.8 mg/dL (2.5-4.9); Sodium, Blood 141 mmol/L (136-145)
[2024-01-11 07:49] VITALS: BP 171/74
[2024-01-11 11:16] LABS: Source, Urine Straight Cath
[2024-01-11] MEDS ORDERED: Insulin Human Lispro 100 Units/ML 3ML Syringe SC SCH (11:30)
--- NOTE | 2024-01-11 11:51 | NUR ---
DR. MCDERMOTT NOTIFIED DURING AM ROUNDS THAT PT IS CHOKING AND GAGGING ON MEDICATIONS GIVEN WHOLE AND/OR CRUSHED WITH APPLESAUCE. PT HAS HAD MEDICATIONS HELD YESTERDAY AND THIS MORNING. PT ALSO REFUSING MEALS DUE TO POOR APPETITE AND DENIES NAUSEA. NO NEW ORDERS AT TIME OF DISCUSSION.
[2024-01-11] MEDS ORDERED: SULTRIL10 PO (11:59)
[2024-01-11] MEDS ORDERED: HYDCHL25 PO (11:59)
[2024-01-11] MEDS ORDERED: HYDR1TAB94 PO (12:00)
[2024-01-11] MEDS ORDERED: ATOR40TA PO (12:00)
[2024-01-11] MEDS ORDERED: MICONAZOLE NIT130 GM TOP (12:02)
[2024-01-11] MEDS ORDERED: VISBIOME 112.51 EACH PO (12:02)
[2024-01-11 12:22] LABS: Appearance, Urine Clear (Clear); Bilirubin, Urine Neg (Neg); Blood, Urine 2+ (Neg); Color, Urine Yellow (P-Yellow); Glucose Qualitative, Urine 3+ (Neg); Ketones, Urine Neg (Neg); Leukocyte Esterase, Urine Neg (Neg); Nitrite, Urine Neg (Neg); Protein, Urine 4+ (Neg); Urobilinogen, Urine NORM (Normal)
[2024-01-11 12:38] LABS: Red Blood Cells, Urine 0-2 /hpf (0-2)
[2024-01-11 12:39] LABS: Squamous Epithelial Cells Rare /hpf (Few)
[2024-01-11 12:40] LABS: Bacteria Few /hpf; Hyaline Casts 0-2 /lpf (0-2); Mucus Light (0-Heavy)
--- NOTE | 2024-01-11 14:22 | NUR ---
WOUND CARE COMPLETED TO BUTTOCK WOUND. WOUND PACKING REMOVED AND APPROX 4 CC PURULENT LIGHT GREEN DRAINAGE DRAINED FROM WOUND. WOUND CLEANSED WITH WOUND CLEANSER AND PATTED DRY. PACKED WOUND WITH IODOFORM PACKING AND COVERED WITH MEPILEX. PT MEDICATED WITH NORCO FOR PAIN AND PT TOLERATED WELL. PT WAS ABLE TO SWALLOW MEDICATION WITHOUT DIFFICULTY MIXED IN SUGAR FREE JELLO. PT ALSO ATE LUNCH WITHOUT SWALLOWING DIFFICULTIES PER PLATEN PRESS OPERATOR APPRENTICE MALLIKA AND PT. PT IS MUCH MOR ALERT AND AWAKE THAN THIS MORNING.
--- NOTE | 2024-01-11 16:23 | NUR ---
DISCHARGE SUMMARY: PT DISCHARGED HOME WITH HOME HEALTH SERVICES. PT SENT BY [facility]UR[facility] TRANSPORT ON 3 LPM [facility]. LIVE CATHETER IN PLACE PATENT WITH CLEAR YELLOW URINE. PT SENT HOME WITH WOUND CARE SUPPLIES TO GET THROUGH UNTIL HOME HEALTH SERVICE ASSUME CARE OF PT. SPOUSE KATHYA CALLED AND DISCHARGE MEDICATIONS AND INSTRUCTIONS WENT OVER WITH HIM WELL PT. KATHYA REPORTED BEING HOME AND WAITING FOR [facility] TO ARRIVE HOME. KATHYA REPORTED HE HAS ALL SUPPLIES HE NEEDS FOR HER CARE NEEDS. MEDICATIONS FAXED TO [facility] AND KATHYA REPORTED SOME WERE NOT COVRED BY INSURANCE SO HE REQUESTED I SEND COPY OF RX'S SO HE CAN TAKE TO LOCAL PHARMACY TOMORROW.
== END 2024-01-11 16:01 | disposition home health service (06) | DRG 602 ==
LOC: ER 12:25 → SURS 12:26 → MEDS 01-02 13:09 → SURS 01-02 13:09 → PCU 01-02 13:09 → SURS 01-02 13:10 → PCU 01-06 00:11 → MEDS 01-08 22:00
PROVIDERS: Family Medicine; Hospitalist; Internal Medicine; Student in an Organized Health Care Education/Training Program; Surgery; ADMIT Internal Medicine
PROC: 0Y900ZZ Drainage of Right Buttock, Open Approach (ICD-10-PCS; 2024-01-01)
PROC: 30233N1 Transfusion of Nonautologous Red Blood Cells into Peripheral Vein, Percutaneous Approach (ICD-10-PCS; principal; 2024-01-02)
PROC: 0T9B70Z Drainage of Bladder with Drainage Device, Via Natural or Artificial Opening (ICD-10-PCS; 2024-01-02)
DX: L02.31 Cutaneous abscess of buttock (principal); N17.0 Acute kidney failure with tubular necrosis; N39.0 Urinary tract infection, site not specified; I69.351 Hemiplegia and hemiparesis following cerebral infarction affecting right dominant side; D50.9 Iron deficiency anemia, unspecified; Z66 Do not resuscitate; B37.2 Candidiasis of skin and nail; L03.317 Cellulitis of buttock; E78.5 Hyperlipidemia, unspecified; E11.649 Type 2 diabetes mellitus with hypoglycemia without coma; B95.1 Streptococcus, group B, as the cause of diseases classified elsewhere; Z79.82 Long term (current) use of aspirin; Z91.011 Allergy to milk products; Z79.899 Other long term (current) drug therapy
CPT/HCPCS: 36415; 36430; 51702; 72193; 76770; 80048; 80053; 80069; 81001; 82550; 82570; 82784; 82947; 83521; 83540; 83550; 83735; 84134; 84155; 84156; 84165; 84300; 85014; 85018; 85025; 85027; 85610; 85730; 86160; 86334; 86850; 86900; 86901; 86923; 87070; 87075; 87086; 87147; 87205; 93005; 93010; 94760; 96361-59; 96365-59; 96366; 96367; 96372; 96375-59; 97110; 97112; 97161; 97165; 97530; 99285-25; A9270; G0378; J0295; J0360; J0692; J1644; J1650; J1815; J2001; J2270; J2405; J3010; J3370; J7030; J7040; J7050; P9016; P9612; Q9967

== ENCOUNTER → 2024-01-20 | Outpatient (CLI) | payer OTHER ==
[~2024-01-20] MED LIST changes: +ALBU90OI INH; +BASAGLAR K100 UNIT/6 SC; +FLUT1DIS2 INH; +HYDCHL25 PO; +HYDR1TAB94 PO; +MICONAZOLE NIT130 GM TOP; +SULTRIL10 PO; +VISBIOME 112.51 EACH PO; +Ventolin5 MG/1 ML INH
[2024-01-20 18:55] LABS: BASOPHILS ABSOLUTE AUTO 0.07 K/mm3 (0.00-0.23); BASOPHILS PERCENT AUTO 1 % (0-2); EOSINOPHILS ABSOLUTE AUTO 0.12 K/mm3 (0.00-0.68); EOSINOPHILS PERCENT AUTO 1 % (0-6); Hematocrit 30.2 % (33.0-51.0); Hemoglobin 9.2 g/dL (11.5-16.0); IMMATURE GRAN ABSOLUTE AUTO 0.04 K/mm3 (0.00-0.10); IMMATURE GRAN PERCENT AUTO 0 % (0-1); LYMPHOCYTES ABSOLUTE AUTO 1.68 K/mm3 (0.84-5.20); LYMPHOCYTES PERCENT AUTO 16 % (21-46); MONOCYTES ABSOLUTE AUTO 0.55 K/mm3 (0.16-1.47); MONOCYTES PERCENT AUTO 5 % (4-13); Mean Corpuscular HGB 27.6 pg (26.0-34.0); Mean Corpuscular HGB Conc 30.5 g/dL (31.5-36.5); Mean Corpuscular Volume 91 fL (80-100); Mean Platelet Volume 10.5 fL (9.1-12.4); NEUTROPHILS ABSOLUTE AUTO 7.94 K/mm3 (1.96-9.15); NEUTROPHILS PERCENT AUTO 76 % (41-73); Platelet Count 416 K/mm3 (150-400); RDW Coefficient Variation 14.1 % (11.7-14.2); RDW Standard Deviation 46.6 fL (35.1-46.3); Red Blood Cell Count 3.33 M/mm3 (3.80-5.20)
[2024-01-20 19:51] LABS: Alanine Aminotransfer (ALT/SGP 17 U/L (12-78); Albumin, Blood 2.4 g/dL (3.4-5.0); Albumin/Globulin Ratio 0.5 (0.8-1.8); Alk Phos 162 U/L (50-136); Aspartate Aminotrans (AST/SGOT 11 U/L (12-37); Bilirubin, Total 0.3 mg/dL (0.1-1.0); Blood Urea Nitrogen 46 mg/dL (8-24); Bun/Creatinine Ratio 15.2 (12.0-20.0); CHOL/HDL RATIO 3.1; CO2, Blood 21 mmol/L (21-32); Calcium, Blood 8.7 mg/dL (8.5-10.1); Chloride, Blood 111 mmol/L (98-108); Cholesterol 127 mg/dL (50-200); Creatinine, Blood 3.03 mg/dL (0.40-1.00); Globulin, Blood 4.5 g/dL (2.2-4.0); Glomerular Filtration Rate 17 (60-); Glucose, Blood 178 mg/dL (70-99); HDL Cholesterol 41 mg/dL (>39); LDL/HDL RATIO 1.1; Low Density Lipoprotein Chol 44 mg/dL (0-110); Sodium, Blood 141 mmol/L (136-145); Total Protein, Blood 6.9 g/dL (6.4-8.2); Triglycerides 210 mg/dL (30-160); Very Low Density Lipoprot Chol 42 mg/dL (6-32)
[2024-01-20 20:33] LABS: Anion Gap 15 mmol/L (3-11); Potassium, Blood 6.2 mmol/L (3.5-5.5)
== END ==
LOC: LAB 17:49 → LAB SHORT 17:49
PROVIDERS: Physician Assistant
DX: E11.65 Type 2 diabetes mellitus with hyperglycemia (principal); N17.9 Acute kidney failure, unspecified; D64.9 Anemia, unspecified; E78.5 Hyperlipidemia, unspecified
CPT/HCPCS: 80053; 80061; 83036; 85025

== ENCOUNTER 2024-01-21 09:34 | Observation (INO) | payer OTHER ==
[~2024-01-21] VITALS: Ht 167.6 cm; Wt 97.5 kg
[2024-01-21] MEDS ORDERED: NS 1,000 ML IV SCH ×2 (10:00→18:00)
[2024-01-21 10:28] LABS: BASOPHILS ABSOLUTE AUTO 0.07 K/mm3 (0.00-0.23); BASOPHILS PERCENT AUTO 1 % (0-2); EOSINOPHILS ABSOLUTE AUTO 0.15 K/mm3 (0.00-0.68); EOSINOPHILS PERCENT AUTO 2 % (0-6); Hematocrit 32.4 % (33.0-51.0); Hemoglobin 9.8 g/dL (11.5-16.0); IMMATURE GRAN ABSOLUTE AUTO 0.04 K/mm3 (0.00-0.10); IMMATURE GRAN PERCENT AUTO 1 % (0-1); LYMPHOCYTES ABSOLUTE AUTO 1.71 K/mm3 (0.84-5.20); LYMPHOCYTES PERCENT AUTO 19 % (21-46); MONOCYTES ABSOLUTE AUTO 0.56 K/mm3 (0.16-1.47); MONOCYTES PERCENT AUTO 6 % (4-13); Mean Corpuscular HGB 27.6 pg (26.0-34.0); Mean Corpuscular HGB Conc 30.2 g/dL (31.5-36.5); Mean Corpuscular Volume 91 fL (80-100); Mean Platelet Volume 9.4 fL (9.1-12.4); NEUTROPHILS ABSOLUTE AUTO 6.35 K/mm3 (1.96-9.15); NEUTROPHILS PERCENT AUTO 71 % (41-73); Platelet Count 230 K/mm3 (150-400); RDW Coefficient Variation 14.1 % (11.7-14.2); RDW Standard Deviation 47.5 fL (35.1-46.3); Red Blood Cell Count 3.55 M/mm3 (3.80-5.20); White Blood Cell Count 8.88 K/mm3 (4.00-11.30)
[2024-01-21 10:42] LABS: Magnesium, Blood 2.2 mg/dL (1.6-2.4)
[2024-01-21 11:32] LABS: Calcium, Blood 8.9 mg/dL (8.5-10.1); Creatinine, Blood 2.88 mg/dL (0.40-1.00); Phosphorus, Blood 4.3 mg/dL (2.5-4.9); Potassium, Blood 6.7 mmol/L (3.5-5.5)
[2024-01-21] MEDS ORDERED: Albuterol 2.5 MG/3 ML VIAL INH SCH (11:40)
[2024-01-21] MEDS ORDERED: Sodium Bicarb 8.4% 1 MEQ/ML 50 ML Vial IV ONE (11:40)
[2024-01-21] MEDS ORDERED: Dextrose 50% 50 ML Syringe IV ONE (11:40)
[2024-01-21] MEDS ORDERED: Insulin Regular 100 Unit/ML 1ML Dose IV ONE (11:40)
[2024-01-21] MEDS ORDERED: Dextrose 50% 50 ML Vial IV ONE (11:50)
[2024-01-21] MEDS ORDERED: Polyethylene Glycol 3350 17 gm PO PRN (12:35)
[2024-01-21] MEDS ORDERED: FLU VACC TS2024-25(6MOS UP)/PF 45 MCG/0.5 ML SYRINGE IM ONE (12:40)
[2024-01-21] MEDS ORDERED: Acetaminophen 500 MG Tab PO PRN (12:40)
[2024-01-21] MEDS ORDERED: Docusate Sodium/Senna 1 Tab PO SCH (13:00)
[2024-01-21] MEDS ORDERED: HYDROcodone 5-APAP 325 TAB PO PRN (13:10)
[2024-01-21 13:47] LABS: Calcium, Ionized (POC) 1.06 mmol/L (1.10-1.46); Chloride (POC) 115 mmol/L (98-108); Glucose (ISTAT POC) 177 mg/dL (70-99); Hemoglobin (POC) 9.2 g/dL (12.0-16.0); Potassium (POC) 4.6 mmol/L (3.5-5.5); Sodium (POC) 142 mmol/L (135-148); Total CO2 (POC) 19 mmol/L (21-32)
[2024-01-21 15:42] VITALS: BP 169/114
--- NOTE | 2024-01-21 16:14 | NUR ---
SPOKE WITH ANGELINE AT [facility]: SHE WILL FAX MOST RECENT ORDERS FOR WOUND CARE TO FLOOR. WILL CONFIRM WITH PROVIDER TO CONTINUE WITH CURRENT Tx.
[2024-01-21] MEDS ORDERED: Insulin Human Lispro 100 Units/ML 3ML Syringe SC SCH (16:30)
[2024-01-21 16:47] VITALS: BP 160/138
--- NOTE | 2024-01-21 16:50 | NUR ---
CALL TO DR PATE REGARDING PATIENT'S CONTINUED HYPERTENSION SINCE ADMIT TO MEDICAL FLOOR. ORDERS TO ADMINISTER AMLODIPINE 10MG ( THIS WAS MISSED THIS MORNING) AND [id number] q6h PRN SBP >180 AND/OR DBP >100. VERBAL ORDER READ BACK AND VERIFIED BY PROVIDER.
[2024-01-21] MEDS ORDERED: HydrALAZINE HCl 20 MG / ML 1ML Vial IV PRN (16:55)
[2024-01-21] MEDS ORDERED: AmLODIPine Besylate 5 MG Tab PO ONE (16:55)
--- NOTE | 2024-01-21 17:25 | NUR ---
PATIENT'S , KATHYA, CALLED TO CHECK ON PATIENT AND SEE HOW SHE'S DOING. HE WILL BE IN TO VISIT PATIENT TOMORROW.
--- NOTE | 2024-01-21 19:11 | NUR ---
END OF SHIFT SUMMARY: A&Ox4. PLEASANT AND COOPERATIVE WITH CARE. CALLS APPROPRIATELY AND IS ABLE TO ADVOCATE NEEDS EFFECTIVELY. BEDREST SECONDARY TO Hx CVA WITH RIGHT-SIDED HEMIPLEGIA AND NO AMBULATION. CHRONIC LIVE CHANGED TWO DAYS AGO BY HOME HEALTH NURSE. LBM 01/16/24. MEDS WHOLE WITH FLUIDS. TELE SINUS IN 70s. NO C/O PAIN THIS SHIFT. ATE 1/2 OF DINNER OF FRUIT, YOGURT AND SOUP. 22G IV LEFT WRIST PATENT AND RUNNING NS @ 50mL/hr. BED IN LOWEST POSITION. CALL LIGHT WITHIN REACH. ALL NEEDS MET. REPORT TO ONCOMING NURSE.
[2024-01-21 19:13] VITALS: BP 162/61
[2024-01-21] MEDS ORDERED: Insulin Glargine-Yfgn 100 Unit/mL 3 ML SYR SC SCH (21:00)
[2024-01-21] MEDS ORDERED: Aspirin 81 MG Chew PO SCH (21:00)
--- NOTE | 2024-01-22 03:26 | NUR ---
SHIFT SUMMARY PT IS A&O X4, PLEASANT AND COOPERATIVE WITH CARE. PT DENIES PAIN/SOB DURING THIS SHIFT. LIVE DRAINING WELL, YELLOW COLOR URINE. TELE SR@82. HS B, LANTUS 10U ADMINISTERED ORDERED. PT EDUCATION PROVIDED BY THIS CURRICULUM ASSISTANT R/T NUTRITION & DM II. NO ACUTE EVENTS DURING THIS SHIFT. PT IS ABLE TO MAKE HER NEEDS KNOWN. BED AT THE LOWEST POSITION, CALL LIGHT W/I REACH. WILL HANDOFF TO THE INCOMING SHIFT NURSE.
[2024-01-22 04:13] VITALS: BP 171/77
[2024-01-22 04:46] LABS: Albumin, Blood 2.2 g/dL (3.4-5.0); Anion Gap 15 mmol/L (3-11); Blood Urea Nitrogen 44 mg/dL (8-24); Bun/Creatinine Ratio 14.6 (12.0-20.0); CO2, Blood 19 mmol/L (21-32); Calcium, Blood 8.6 mg/dL (8.5-10.1); Chloride, Blood 112 mmol/L (98-108); Creatinine, Blood 3.01 mg/dL (0.40-1.00); Glomerular Filtration Rate 17 (60-); Glucose, Blood 257 mg/dL (70-99); Magnesium, Blood 2.2 mg/dL (1.6-2.4); Phosphorus, Blood 4.2 mg/dL (2.5-4.9); Potassium, Blood 5.6 mmol/L (3.5-5.5); Sodium, Blood 140 mmol/L (136-145)
[2024-01-22 08:05] VITALS: BP 156/70
[2024-01-22] MEDS ORDERED: AmLODIPine Besylate 5 MG Tab PO SCH (09:00)
--- NOTE | 2024-01-22 09:15 | NUR ---
CALL FROM , KATHYAHEIDY FOR UPDATE. WONDERING IF PATIENT IS DISCHARGING TODAY; TOO EARLY TO TELL. HE WILL BE IN LATER THIS AFTERNOON; WILL CALL HIM IF SHE'S BEING DC'd.
--- NOTE | 2024-01-22 17:31 | NUR ---
DISCHARGE/SHIFT SUMMARY: A&Ox4. PLEASANT AND COOPERATIVE WITH CARE. CALLS APPROPRIATELY AND IS ABLE TO ADVOCATE NEEDS EFFECTIVELY. RIGHT-SIDED HEMIPLEGIA R/T Hx MULTIPLE CVAs. BEDREST. LIVE PATENT AND DRAINING TO GRAVITY. BOWEL MOVEMENT x2 TODAY. MEPILEX APPLIED TO WOUND ON BUTTOCK PER HOME HEALTH ORDERS (FAX IN CHART). MEDS WHOLE WITH FLUIDS. TELE SINUS. NO C/O PAIN OR DISCOMFORT. IV REMOVED BY AMI PALACIOS CNA. INSTRUCTIONS TO FOLLOW-UP WITH PCP. PATIENT ESCORTED FROM FLOOR BY [facility] AM[facility]/MEDICAL TRANSPORT WITH ALL BELONGINGS AND DISCHARGE PACKET @ 1600.
== END 2024-01-22 16:15 | disposition home health service (06) ==
LOC: ER 09:34 → PCU 09:35 → MEDS 09:35 → ENPENDDIS 01-22 11:25 → MEDS 01-22 16:15
PROVIDERS: Student in an Organized Health Care Education/Training Program; ADMIT Internal Medicine
DX: E87.5 Hyperkalemia (principal); N17.9 Acute kidney failure, unspecified; L02.31 Cutaneous abscess of buttock; D75.839 Thrombocytosis, unspecified; E11.22 Type 2 diabetes mellitus with diabetic chronic kidney disease; N18.30 Chronic kidney disease, stage 3 unspecified; E11.649 Type 2 diabetes mellitus with hypoglycemia without coma; I69.951 Hemiplegia and hemiparesis following unspecified cerebrovascular disease affecting right dominant side; Z66 Do not resuscitate
CPT/HCPCS: 36415; 80047; 80048; 80069; 82947; 83735; 84100; 84132; 85014; 85025; 93005; 93010; 94644; 94664; 96361; 96374; 96375; 99284-25; A9270; G0378; J0360; J1815; J7030; J7799

== ENCOUNTER 2024-02-06 23:41 | Inpatient (IN) | payer OTHER ==
[~2024-02-06] VITALS: Ht 160 cm; Wt 91.6 kg
[~2024-02-06 23:41] MED LIST changes: -Acetaminophen325 M1 PO; -BASAGLAR K100 UNIT/3 SC; -HYDRA50 PO; -PROTONIX4010 PO; -UBID10 PO
[2024-02-06] MEDS ORDERED: Ondansetron HCl 2 MG / ML 2ML Vial IV ONE (23:50)
[2024-02-07] VITALS (15 sets, daily range): BP systolic 133–191; BP diastolic 54–93
[2024-02-07 00:14] LABS: BASOPHILS ABSOLUTE AUTO 0.08 K/mm3 (0.00-0.23); BASOPHILS PERCENT AUTO 1 % (0-2); EOSINOPHILS ABSOLUTE AUTO 0.16 K/mm3 (0.00-0.68); EOSINOPHILS PERCENT AUTO 1 % (0-6); Hemoglobin 9.7 g/dL (11.5-16.0); IMMATURE GRAN ABSOLUTE AUTO 0.06 K/mm3 (0.00-0.10); IMMATURE GRAN PERCENT AUTO 0 % (0-1); LYMPHOCYTES ABSOLUTE AUTO 1.77 K/mm3 (0.84-5.20); LYMPHOCYTES PERCENT AUTO 13 % (21-46); MONOCYTES PERCENT AUTO 4 % (4-13); Mean Corpuscular HGB 27.6 pg (26.0-34.0); Mean Corpuscular HGB Conc 31.3 g/dL (31.5-36.5); Mean Corpuscular Volume 88 fL (80-100); NEUTROPHILS PERCENT AUTO 81 % (41-73); Platelet Count 412 K/mm3 (150-400); RDW Coefficient Variation 14.2 % (11.7-14.2); RDW Standard Deviation 45.5 fL (35.1-46.3); Red Blood Cell Count 3.51 M/mm3 (3.80-5.20); White Blood Cell Count 13.37 K/mm3 (4.00-11.30)
[2024-02-07 00:35] LABS: Albumin, Blood 2.5 g/dL (3.4-5.0); Albumin/Globulin Ratio 0.5 (0.8-1.8); Bilirubin, Total 0.2 mg/dL (0.1-1.0); Bun/Creatinine Ratio 27.9 (12.0-20.0); Creatinine, Blood 2.15 mg/dL (0.40-1.00); Globulin, Blood 5.3 g/dL (2.2-4.0); Potassium, Blood 4.8 mmol/L (3.5-5.5); Total Protein, Blood 7.8 g/dL (6.4-8.2)
[2024-02-07] MEDS ORDERED: BASAGLAR K100 UNIT/3 SC (00:43)
[2024-02-07 00:46] LABS: pH Blood Venous 7.37 (7.34-7.37)
[2024-02-07 00:47] LABS: Base Excess Venous -3.3 mmol/L; Bicarbonate Venous 21.9 mmol/L (24.0-30.0); PCO2 Venous 38.7 mmHg (38-42)
[2024-02-07] MEDS ORDERED: UBID10 PO (00:47)
[2024-02-07] MEDS ORDERED: Lactated Ringer's 1,000 ML IV ONE ×2 (01:05→14:07)
[2024-02-07] MEDS ORDERED: Ondansetron HCl 2 MG / ML 2ML Vial IV ONE (01:10)
[2024-02-07] MEDS ORDERED: Metoclopramide HCl 5MG / ML 2ML Vial IV ONE (02:15)
[2024-02-07 02:28] LABS: Source, Urine Clean Catch
[2024-02-07 02:41] LABS: Bilirubin, Urine Neg (Neg); Blood, Urine 4+ (Neg); Glucose Qualitative, Urine 4+ (Neg); Ketones, Urine Neg (Neg); Leukocyte Esterase, Urine 3+ (Neg); Nitrite, Urine Neg (Neg); Protein, Urine 4+ (Neg); Specific Gravity, Urine 1.015 (1.003-1.022); Urobilinogen, Urine NORM (Normal)
[2024-02-07 02:58] LABS: Appearance, Urine Hazy (Clear); Color, Urine Pale Yellow (P-Yellow)
[2024-02-07 03:00] LABS: Bacteria Many /hpf; Red Blood Cells, Urine 0-2 /hpf (0-2); Squamous Epithelial Cells Few /hpf (Few); White Blood Cells, Urine 50-100 /hpf (0-5); Yeast/Fungi Urine Mod /hpf
[2024-02-07] MEDS ORDERED: Ketorolac Tromethamine 15mg Vial IV ONE (03:30)
[2024-02-07] MEDS ORDERED: CefTRIAXone Sodium 1,000 MG in NS 100 ML IV ONE (04:40)
[2024-02-07] MEDS ORDERED: FLU VACC TS2024-25(6MOS UP)/PF 45 MCG/0.5 ML SYRINGE IM SCH (08:10)
[2024-02-07] MEDS ORDERED: Ondansetron HCl 2 MG / ML 2ML Vial IV PRN (08:10)
[2024-02-07] MEDS ORDERED: Acetaminophen 325 MG TABLET PO PRN (08:10)
[2024-02-07] MEDS ORDERED: OxyCODONE HCL 5 MG TAB PO PRN (08:15)
[2024-02-07] MEDS ORDERED: Lactated Ringer's 1,000 ML IV SCH (08:15)
[2024-02-07] MEDS ORDERED: Ketorolac Tromethamine 30mg Vial IV PRN (08:20)
[2024-02-07] MEDS ORDERED: Piperacillin/Tazobactam Sod 2.25 GM in NS 50 ML IV ONE (08:55)
[2024-02-07] MEDS ORDERED: Lactobacil 2-S.Thermo-Bifido 1 1 Cap PO SCH (09:00)
[2024-02-07] MEDS ORDERED: AmLODIPine Besylate 5 MG Tab PO SCH (09:00)
[2024-02-07] MEDS ORDERED: CO-ENZYME Q10 PO SCH (09:00)
[2024-02-07] MEDS ORDERED: Insulin Glargine-Yfgn 100 Unit/mL 3 ML SYR SC ONE (11:00)
[2024-02-07] MEDS ORDERED: Indocyanine Green 25 MG Vial IV ONE (11:00)
[2024-02-07] MEDS ORDERED: Insulin Regular 100 UNIT/ML 10ML Vial SC SCH (12:00)
[2024-02-07 12:42] LABS: Bun/Creatinine Ratio 26.9 (12.0-20.0); Calcium, Blood 9.3 mg/dL (8.5-10.1); Creatinine, Blood 2.19 mg/dL (0.40-1.00); Potassium, Blood 4.6 mmol/L (3.5-5.5)
[2024-02-07] MEDS ORDERED: Insulin Regular 100 UNIT/ML 10ML Vial SC ONE ×2 (14:10→15:09)
--- NOTE | 2024-02-07 14:24 | NUR ---
SURGERY: PT TO PREOP AT THIS TIME. NGT CLAMPED. PT GIVEN 10UNITS INSULIN PER ORDERS FOR CBG RECHECK OF 309. SURGICAL PKT TO CHART. LIVE EMPTIED. PT HAD PRE SURGICAL WASH, RINSE AND NASAL SWAB. WILL CONT TO MONITOR WHEN RETURNS TO ROOM POST OP.
[2024-02-07] MEDS ORDERED: Bupivacaine 0.5% HCl 5 MG/ML 30MLVIAL ONE (14:48)
[2024-02-07] MEDS ORDERED: propofoL 20 ML IV ONE (15:04)
[2024-02-07] MEDS ORDERED: FentaNYL Citrate 50 MCG/ML 2 ML Injection ONE (15:04)
[2024-02-07] MEDS ORDERED: SuccINYLCHOLINE Chloride 100 MG/5 ML 5MLSYR ONE (15:05)
[2024-02-07] MEDS ORDERED: Piperacillin/Tazobactam Sod 2.25 GM in NS 50 ML IV SCH (17:00)
[2024-02-07] MEDS ORDERED: Phenylephrine HCl 100 MCG/ML-NS 10MLSYR (1MG/10ML) ONE (17:06)
[2024-02-07] MEDS ORDERED: Ondansetron HCl 2 MG / ML 2ML Vial ONE (17:06)
[2024-02-07] MEDS ORDERED: Dexamethasone Sod Phos 10 MG/ML 1ML VIAL ONE (17:06)
[2024-02-07] MEDS ORDERED: Sugammadex Sodium 200 MG/2ML SDV (100 MG/ML) ONE (17:39)
[2024-02-07] MEDS ORDERED: Ketorolac Tromethamine 30mg Vial ONE (17:39)
--- NOTE | 2024-02-07 17:49 | NUR ---
PT REMAINS IN OR AT THIS POINT. PT WAS NPO AT TIME OF TRANSFER. NGT IN PLACE TO LIS WITH SMALL AMT BROWN DRAINGE. TELE NSR. FLUIDS WERE INFUSING ORDERED. CHRONIC LIVE IN PLACE DRAINING MEGAN URINE. MEPILEX TO COCCYX FOR CHRONIC HEALING WOUND. PT INCONTINENT, ATTENDS IN USE THIS SHIFT. CONT IV ABX. PT HAD NO COMPLAINTS OF PAIN. PT HAD PRODUCTIVE COUGH AND WAS USING SELF SUCTIONING TO MANAGE SECRETIONS. SPOUSE IS PRIMARY CAREGIVER AT HOME AND WAS PRESENT AND ATTENTIVE TO PATIENT. POSSIBLE DC HOME TOMORROW.
[2024-02-07] MEDS ORDERED: Labetalol HCL 5 MG/ML 4ML Injection (Single Dose) ONE (18:27)
[2024-02-07] MEDS ORDERED: Ketorolac Tromethamine 15mg Vial IV PRN (19:20)
[2024-02-07] MEDS ORDERED: Insulin Glargine-Yfgn 100 Unit/mL 3 ML SYR SC SCH (21:00)
[2024-02-07] MEDS ORDERED: Aspirin 81 MG Chew PO SCH (21:00)
[2024-02-07] MEDS ORDERED: Atorvastatin 40 MG Tab PO SCH (21:00)
[2024-02-07 23:29] LABS: Bun/Creatinine Ratio 23.2 (12.0-20.0); Calcium, Blood 9.3 mg/dL (8.5-10.1); Creatinine, Blood 2.54 mg/dL (0.40-1.00); Potassium, Blood 4.6 mmol/L (3.5-5.5)
[2024-02-08 04:05] VITALS: BP 137/68
--- NOTE | 2024-02-08 04:15 | NUR ---
SHIFT SUMMARY CONSTANTINE ARRIVED FROM PACU AT THE START OF SHIFT. SHE WAS LETHARGIC BUT EASILY BROUGHT BACK TO ALERTNESS, PT IS SLOW TO REPOND BUT ANSWERS ORIENTATION ACCURATELY. INSCISION SITES ARE C/D/I, HENOK DRAINING SS. LITTLE URINE OUTPUT TONIGHT. PT HAS BEEN DENYING PAIN WHEN ASKED FOR THE MOST PART TONIGHT, REQUIRING VERY LITTLE PAIN MEDS. FREQUENT REPOSITIONING. NO ACUTE EVENTS TONIGHT, PT RESTING IN BED AT LOW POSITON WITH CALL LIGHT IN REACH.
[2024-02-08 06:32] LABS: BASOPHILS ABSOLUTE AUTO 0.06 K/mm3 (0.00-0.23); BASOPHILS PERCENT AUTO 0 % (0-2); EOSINOPHILS ABSOLUTE AUTO 0.01 K/mm3 (0.00-0.68); EOSINOPHILS PERCENT AUTO 0 % (0-6); Hematocrit 29.8 % (33.0-51.0); Hemoglobin 9.2 g/dL (11.5-16.0); IMMATURE GRAN ABSOLUTE AUTO 0.36 K/mm3 (0.00-0.10); IMMATURE GRAN PERCENT AUTO 1 % (0-1); LYMPHOCYTES ABSOLUTE AUTO 1.58 K/mm3 (0.84-5.20); LYMPHOCYTES PERCENT AUTO 4 % (21-46); MONOCYTES ABSOLUTE AUTO 1.44 K/mm3 (0.16-1.47); MONOCYTES PERCENT AUTO 4 % (4-13); Mean Corpuscular HGB 27.7 pg (26.0-34.0); Mean Corpuscular HGB Conc 30.9 g/dL (31.5-36.5); Mean Corpuscular Volume 90 fL (80-100); Mean Platelet Volume 10.9 fL (9.1-12.4); NEUTROPHILS ABSOLUTE AUTO 32.43 K/mm3 (1.96-9.15); NEUTROPHILS PERCENT AUTO 90 % (41-73); Platelet Count 393 K/mm3 (150-400); RDW Coefficient Variation 14.6 % (11.7-14.2); Red Blood Cell Count 3.32 M/mm3 (3.80-5.20); White Blood Cell Count 35.88 K/mm3 (4.00-11.30)
[2024-02-08 07:07] LABS: Albumin, Blood 2.2 g/dL (3.4-5.0); Albumin/Globulin Ratio 0.4 (0.8-1.8); Bilirubin, Total 0.4 mg/dL (0.1-1.0); Bun/Creatinine Ratio 23.2 (12.0-20.0); Calcium, Blood 8.8 mg/dL (8.5-10.1); Creatinine, Blood 2.67 mg/dL (0.40-1.00); Potassium, Blood 4.8 mmol/L (3.5-5.5); Total Protein, Blood 7.2 g/dL (6.4-8.2)
[2024-02-08 07:10] VITALS: BP 176/87
[2024-02-08] MEDS ORDERED: Insulin Regular 100 UNIT/ML 10ML Vial SC SCH (07:30)
[2024-02-08] MEDS ORDERED: CefTRIAXone Sodium 1,000 MG in NS 100 ML IV SCH (09:00)
[2024-02-08] MEDS ORDERED: Insulin Glargine-Yfgn 100 Unit/mL 3 ML SYR SC SCH (09:00)
[2024-02-08] MEDS ORDERED: Piperacillin/Tazobactam Sod 2.25 GM in NS 50 ML IV SCH (10:30)
[2024-02-08 15:25] VITALS: BP 171/79
--- NOTE | 2024-02-08 18:30 | NUR ---
PT HAS BEEN RESTING WELL IN BED T/O THE DAY, SHE DOES HAS REQUIRED FREQUENT ATTENDS CHANGED WITH LOOSE MUCUSY DARL BROWN STOOL. SHE REPORTS THAT PAIN IS A 3 T/O THE DAY STATING THAT THIS IS AN ACCEPTABLE PAIN LEVEL FOR HER. HENOK DRAIN WITH VERY SCANT DRAINAGE FOR THIS SHIFT. SHE HAS TOLERATED ABX WELL. VSS. SHE DENIES CP OR SOB. ABD SOFT AND ROUND WITH ACTIVE BOWEL TONES. INCISIONS ARE APPROXMATED, NO ERRYTHEMA OR EDEMA NOTED TO LAP SITES
[2024-02-08 19:27] VITALS: BP 175/73
--- NOTE | 2024-02-09 04:23 | NUR ---
SHIFT SUMMARY CONSTANTINE WAS ALERT AND FULLY ORIENTED ON ASSESMENT. PER REPORT PT HAD DIARRHEA T/O DAYSHIFT. SIGNIFICANT SKIN BREAKDOWN NOTED TO HAVE OCCURRED BETWEEN PREVIOUS ORDINARY SEAMAN AND TONIGHT. BLEEDING EXCORIATION, AND A WHAT LOOKS LIKE A SMALL CUT NOTED ON PT BOTTOM. PT REPORTS HAVING SAT SOILED IN BED FOR EXTENDED PERIODS OF TIME T/O DAY SHIFT. INSCISION SITES DAINA AND C/D/I, HENOK DRAINING SCANT SS. ONLY TWO EPISODES OF LOOSE STOOL TONIGHT, PROTECTIVE BARRIER CREAM APPLIED. NO OTHER NOTED CHANGES TO PT CONDITION. SPEECH THERAPY CONSULT PUT IN FOR CONCERN OF ASPIRATION. PT RESTING IN BED, CALLING APPROPRIATELY.
[2024-02-09 05:37] VITALS: BP 154/73
[2024-02-09 06:03] LABS: BASOPHILS ABSOLUTE AUTO 0.07 K/mm3 (0.00-0.23); BASOPHILS PERCENT AUTO 0 % (0-2); EOSINOPHILS ABSOLUTE AUTO 0.23 K/mm3 (0.00-0.68); EOSINOPHILS PERCENT AUTO 1 % (0-6); Hematocrit 26.2 % (33.0-51.0); Hemoglobin 8.1 g/dL (11.5-16.0); IMMATURE GRAN PERCENT AUTO 1 % (0-1); LYMPHOCYTES ABSOLUTE AUTO 2.12 K/mm3 (0.84-5.20); LYMPHOCYTES PERCENT AUTO 8 % (21-46); MONOCYTES PERCENT AUTO 4 % (4-13); Mean Corpuscular HGB 28.2 pg (26.0-34.0); Mean Corpuscular HGB Conc 30.9 g/dL (31.5-36.5); Mean Corpuscular Volume 91 fL (80-100); Mean Platelet Volume 10.8 fL (9.1-12.4); NEUTROPHILS ABSOLUTE AUTO 21.66 K/mm3 (1.96-9.15); NEUTROPHILS PERCENT AUTO 85 % (41-73); Platelet Count 347 K/mm3 (150-400); RDW Coefficient Variation 14.6 % (11.7-14.2); RDW Standard Deviation 49.1 fL (35.1-46.3); Red Blood Cell Count 2.87 M/mm3 (3.80-5.20); White Blood Cell Count 25.38 K/mm3 (4.00-11.30)
[2024-02-09 06:30] LABS: Albumin, Blood 1.8 g/dL (3.4-5.0); Albumin/Globulin Ratio 0.4 (0.8-1.8); Bilirubin, Total 0.2 mg/dL (0.1-1.0); Bun/Creatinine Ratio 25.7 (12.0-20.0); Creatinine, Blood 2.69 mg/dL (0.40-1.00); Globulin, Blood 4.7 g/dL (2.2-4.0); Potassium, Blood 4.2 mmol/L (3.5-5.5); Total Protein, Blood 6.5 g/dL (6.4-8.2)
[2024-02-09 07:16] VITALS: BP 180/78
[2024-02-09] MEDS ORDERED: Banana Flakes/Tos 1 EA Powder Pack PO SCH (09:45)
[2024-02-09 14:18] VITALS: BP 171/84
--- NOTE | 2024-02-09 16:59 | NUR ---
SHIFT SUMMARY POD 2 LAP APPY LAP SITES CDI, HENOK DRAIN PATENT AND DRAINING. DENIES PAIN, TOLERATING DIET WELL WITH NO NAUSEA REPORTED. PT CONTINUES TO HAVE DIFFICULTY SWALLOWING. HARSH WET COUGH PRESENT. SPEECH THERAPY EVAL THIS AM. PT REFUSES ANY CHANGES TO DIET. HAVE SPOKE WITH PATIENT MULTIPLE TIMES ABOUT ASPIRATION AND RISKS ASSOCIATED. SHE DECLINES ANY CHANGES TO DIET. PT REPOSITIONED IN BED Q2 DURING SHIFT AND TOLERATED. BARRIER CREAM APPLIED DURING CHANGES.
[2024-02-09 19:25] VITALS: BP 169/73
[2024-02-09] MEDS ORDERED: Insulin Glargine-Yfgn 100 Unit/mL 3 ML SYR SC SCH (21:00)
[2024-02-10] VITALS (7 sets, daily range): BP systolic 155–193; BP diastolic 70–87
--- NOTE | 2024-02-10 04:57 | NUR ---
SHIFT SUMMARY CONSTANTINE WAS ALERT AND FULLY ORIENTED ON ASSESMENT. PT STILL HYPERTENSIVE. PT STILL HAVING DARK LIQUID BM. PT TURNED AND CHANGED Q2 AND PRN. SKIN ON BOTTOM IS LOOKING MUCH BETTER. VSS PT CONDITION IS UNCHANGED FROM PREVIOUS SHIFT. HENOK DRAINING SS, LAP SITES C/D/I. NO ACUTE EVENTS. PT RESTING IN BED AT A LOW POSITION.
--- NOTE | 2024-02-10 11:25 | NUR ---
PT HAD 2X LOOSE/LIQUID BM WITH DARK TARRY CONSISTENCY. DR DE LEON NOTIFIED. ORDERS RECEIVED. STOOL SAMPLE SENT TO LAB AND SPEECH THERAPY NOTIFIED OF SWALLOW EVAL. PT CURRENTLY SLEEPING AT THIS TIME. NO DISTRESS.
[2024-02-10] MEDS ORDERED: HYDR1TAB94 PO (11:34)
[2024-02-10 11:57] LABS: BASOPHILS ABSOLUTE AUTO 0.09 K/mm3 (0.00-0.23); BASOPHILS PERCENT AUTO 1 % (0-2); EOSINOPHILS ABSOLUTE AUTO 0.74 K/mm3 (0.00-0.68); EOSINOPHILS PERCENT AUTO 4 % (0-6); Hematocrit 26.9 % (33.0-51.0); Hemoglobin 8.3 g/dL (11.5-16.0); IMMATURE GRAN ABSOLUTE AUTO 0.15 K/mm3 (0.00-0.10); IMMATURE GRAN PERCENT AUTO 1 % (0-1); LYMPHOCYTES ABSOLUTE AUTO 1.88 K/mm3 (0.84-5.20); LYMPHOCYTES PERCENT AUTO 11 % (21-46); MONOCYTES ABSOLUTE AUTO 0.58 K/mm3 (0.16-1.47); MONOCYTES PERCENT AUTO 3 % (4-13); Mean Corpuscular HGB 28.1 pg (26.0-34.0); Mean Corpuscular HGB Conc 30.9 g/dL (31.5-36.5); Mean Corpuscular Volume 91 fL (80-100); Mean Platelet Volume 10.6 fL (9.1-12.4); NEUTROPHILS ABSOLUTE AUTO 13.39 K/mm3 (1.96-9.15); NEUTROPHILS PERCENT AUTO 80 % (41-73); Platelet Count 349 K/mm3 (150-400); RDW Coefficient Variation 14.3 % (11.7-14.2); RDW Standard Deviation 47.8 fL (35.1-46.3); Red Blood Cell Count 2.95 M/mm3 (3.80-5.20); White Blood Cell Count 16.83 K/mm3 (4.00-11.30)
--- NOTE | 2024-02-10 12:22 | NUR ---
THERAPY DOG VISIT
[2024-02-10] MEDS ORDERED: Lactated Ringer's 1,000 ML IV SCH (16:05)
[2024-02-10 16:17] LABS: Stool Occult Blood Guaiac 1 Pos (Neg)
--- NOTE | 2024-02-10 17:09 | NUR ---
SHIFT SUMMARY PT CONT TO HAVE LOOSE/LIQUID BM EVERY 2-3 HRS. CLEANED UP REGULARLY AND BARRIER CREAM APPLIED. STOOL NOTED TO BE DARK AND TARRY. PROVIDER NOTIFIED. STOOL POSITIVE FOR BLOOD. H&H WAS DONE AND IS STABLE AT THIS TIME. PT CONT TO HAVE WET COUGH AFTER EATING AND PROVIDER IS AWARE. PT TO SEE SPEECH THERAPY AGAIN TOMORROW. PT WAS EDUCATED ON RISKS OF ASPIRATION, BUT STILL DESIRING TO EAT REGULAR FOOD. SURGICAL DRAIN PRODUCING SEROSANGUINOUS FLUID. LIVE CATH DRAINING ADEQUATELY. PT SEEMS TO BE IN GOOD MOOD AND IS APPRECIATIVE OF CARE PROVIDED.
[2024-02-10 17:16] LABS: C DIFFICILE DNA NEGATIVE (Negative)
[2024-02-10] MEDS ORDERED: HydrALAZINE HCl 25 MG Tab PO SCH (21:00)
[2024-02-11] VITALS (7 sets, daily range): BP systolic 151–189; BP diastolic 61–83
[2024-02-11 04:38] LABS: BASOPHILS ABSOLUTE AUTO 0.08 K/mm3 (0.00-0.23); BASOPHILS PERCENT AUTO 1 % (0-2); EOSINOPHILS ABSOLUTE AUTO 0.64 K/mm3 (0.00-0.68); EOSINOPHILS PERCENT AUTO 5 % (0-6); Hematocrit 24.7 % (33.0-51.0); Hemoglobin 7.5 g/dL (11.5-16.0); IMMATURE GRAN ABSOLUTE AUTO 0.12 K/mm3 (0.00-0.10); IMMATURE GRAN PERCENT AUTO 1 % (0-1); LYMPHOCYTES ABSOLUTE AUTO 2.48 K/mm3 (0.84-5.20); LYMPHOCYTES PERCENT AUTO 19 % (21-46); MONOCYTES PERCENT AUTO 5 % (4-13); Mean Corpuscular HGB 27.5 pg (26.0-34.0); Mean Corpuscular HGB Conc 30.4 g/dL (31.5-36.5); Mean Corpuscular Volume 91 fL (80-100); Mean Platelet Volume 10.6 fL (9.1-12.4); NEUTROPHILS ABSOLUTE AUTO 9.52 K/mm3 (1.96-9.15); NEUTROPHILS PERCENT AUTO 71 % (41-73); Platelet Count 350 K/mm3 (150-400); RDW Coefficient Variation 14.3 % (11.7-14.2); RDW Standard Deviation 47.5 fL (35.1-46.3); Red Blood Cell Count 2.73 M/mm3 (3.80-5.20); White Blood Cell Count 13.44 K/mm3 (4.00-11.30)
[2024-02-11 05:12] LABS: Free Thyroxine 0.92 ng/dL (0.70-1.60); Percent Saturation 17.9 % (15.0-50.0); Thyroid Stimulating Hormone 1.12 uIU/mL (0.360-4.800)
[2024-02-11 05:13] LABS: Bun/Creatinine Ratio 20.6 (12.0-20.0); Calcium, Blood 8.2 mg/dL (8.5-10.1); Creatinine, Blood 2.57 mg/dL (0.40-1.00); Potassium, Blood 4.1 mmol/L (3.5-5.5)
--- NOTE | 2024-02-11 06:29 | NUR ---
NOC SHIFT SUMMARY PT ORIENTED X3-4, VSS WITH EXCEPTION OF BP - HYPERTENSIVE THIS STAY NOTED. SCHEDULED HYDRALIZINE GIVEN WITH IMPROVEMENT. BP ONCE AGAIN 170S SYSTOLIC, NOTIFIED DR. BOUCHER THIS MORNING, AWAITING RESPONSE OF THE TIME OF THIS NOTE. HX OF CVA, MUMBLED SPEECH WITH R SIDED DEFICITS BASELINE. PT Q2 TURN OVERNIGHT, LIVE IN PLACE TO DD. ADEQUATE URINE OUTPUT. PRN PAIN MEDICATIONS GIVEN X1 WITH RELIEF. HENOK WITH SS DRAINAGE. LAP SITES CDI. + BOWEL SOUNDS, SMALL SMEAR BM X2.
[2024-02-11] MEDS ORDERED: HydrALAZINE HCl 20 MG / ML 1ML Vial IV PRN (06:55)
[2024-02-11] MEDS ORDERED: Pantoprazole Sodium 40 MG Injection IV ONE (11:20)
--- NOTE | 2024-02-11 11:36 | NUR ---
IV IN SAMY NOTED TO BE PAINFUL AND SWOLLEN. HOLDING IV MEDICATION UNTIL NEW IV CAN BE ESTABLISHED.
--- NOTE | 2024-02-11 12:10 | NUR ---
NEW IV ESTABLISHED IN L UPPER ARM
[2024-02-11 12:14] LABS: BASOPHILS ABSOLUTE AUTO 0.06 K/mm3 (0.00-0.23); BASOPHILS PERCENT AUTO 0 % (0-2); EOSINOPHILS ABSOLUTE AUTO 0.71 K/mm3 (0.00-0.68); EOSINOPHILS PERCENT AUTO 5 % (0-6); Hematocrit 27.1 % (33.0-51.0); Hemoglobin 8.3 g/dL (11.5-16.0); IMMATURE GRAN ABSOLUTE AUTO 0.16 K/mm3 (0.00-0.10); IMMATURE GRAN PERCENT AUTO 1 % (0-1); LYMPHOCYTES ABSOLUTE AUTO 2.18 K/mm3 (0.84-5.20); LYMPHOCYTES PERCENT AUTO 16 % (21-46); MONOCYTES ABSOLUTE AUTO 0.65 K/mm3 (0.16-1.47); MONOCYTES PERCENT AUTO 5 % (4-13); Mean Corpuscular HGB 27.8 pg (26.0-34.0); Mean Corpuscular HGB Conc 30.6 g/dL (31.5-36.5); Mean Corpuscular Volume 91 fL (80-100); Mean Platelet Volume 10.1 fL (9.1-12.4); NEUTROPHILS ABSOLUTE AUTO 10.19 K/mm3 (1.96-9.15); NEUTROPHILS PERCENT AUTO 73 % (41-73); Platelet Count 375 K/mm3 (150-400); RDW Coefficient Variation 14.1 % (11.7-14.2); RDW Standard Deviation 46.7 fL (35.1-46.3); Red Blood Cell Count 2.99 M/mm3 (3.80-5.20); White Blood Cell Count 13.95 K/mm3 (4.00-11.30)
--- NOTE | 2024-02-11 13:51 | NUR ---
PER DR GUADARRAMA, PLAN TO DO ENDOSCOPY TOMORROW. NPO AFTER MIDNIGHT.
--- NOTE | 2024-02-11 16:20 | NUR ---
SHIFT SUMMARY PT DID WELL THIS SHIFT. FREQUENT, BUT SMALLER AMOUNT OF BLACK TARRY STOOLS. Q2-3 HR TURNS TO KEEP PRESSURE OFF COCCYX. PT REMAINED IN HIGH SPIRITS. SHE AGREED TO BE ON LIQUID DIET WITH THICKENING NEEDED, AND WILL BE NPO AFTER MID-NIGHT. NOTABLY LESS COUGHING THIS SHIFT. ABD INCISIONS APPEAR TO BE HEALING WELL. PT HAD 1 DOSE OF PAIN MEDICINE WITH ADEQUATE PAIN CONTROL. PLAN IS FOR GI SCOPE TOMORROW MORNING. FAMILY HAS BEEN UPDATED.
[2024-02-11] MEDS ORDERED: Pantoprazole Sodium 40 MG Injection IV SCH (16:30)
[2024-02-12] VITALS (8 sets, daily range): BP systolic 128–184; BP diastolic 66–98
[2024-02-12 05:12] LABS: BASOPHILS PERCENT AUTO 1 % (0-2); EOSINOPHILS ABSOLUTE AUTO 0.59 K/mm3 (0.00-0.68); EOSINOPHILS PERCENT AUTO 5 % (0-6); Hematocrit 26.7 % (33.0-51.0); Hemoglobin 8.1 g/dL (11.5-16.0); IMMATURE GRAN ABSOLUTE AUTO 0.18 K/mm3 (0.00-0.10); IMMATURE GRAN PERCENT AUTO 1 % (0-1); LYMPHOCYTES ABSOLUTE AUTO 2.42 K/mm3 (0.84-5.20); LYMPHOCYTES PERCENT AUTO 19 % (21-46); MONOCYTES ABSOLUTE AUTO 0.68 K/mm3 (0.16-1.47); MONOCYTES PERCENT AUTO 5 % (4-13); Mean Corpuscular HGB 27.3 pg (26.0-34.0); Mean Corpuscular HGB Conc 30.3 g/dL (31.5-36.5); Mean Corpuscular Volume 90 fL (80-100); Mean Platelet Volume 10.6 fL (9.1-12.4); NEUTROPHILS PERCENT AUTO 69 % (41-73); Platelet Count 389 K/mm3 (150-400); RDW Coefficient Variation 14.2 % (11.7-14.2); RDW Standard Deviation 46.5 fL (35.1-46.3); Red Blood Cell Count 2.97 M/mm3 (3.80-5.20); White Blood Cell Count 12.87 K/mm3 (4.00-11.30)
[2024-02-12 05:36] LABS: Bun/Creatinine Ratio 19.1 (12.0-20.0); Calcium, Blood 8.4 mg/dL (8.5-10.1); Creatinine, Blood 2.41 mg/dL (0.40-1.00)
--- NOTE | 2024-02-12 07:40 | NUR ---
SUMMARY PT NPO SINCE MIDNOC FOR EGD.IV PATENT,ALTHOUGH HAS SMALL BRUISING AT SITE. LIVE PATENT OF CLEAR YELLOW .
--- NOTE | 2024-02-12 11:17 | NUR ---
PT HAS 22G IV TO LEFT AC THAT FLUSHES WELL AND FLOWS TO GRAVITY.
[2024-02-12] MEDS ORDERED: NS 500 ML IV SCH (11:20)
--- NOTE | 2024-02-12 11:28 | NUR ---
PT BROUGHT FROM FLOOR TO DAY SURGERY FOR PROCEDURE. VSS. PT ON RA. History, Chart, Medications and Allergies reviewed before start of procedure. Lungs clear T/O to Auscultation. Patient confirms NPO status and agrees with scheduled surgery. Pre-Op teaching done. Pt verbalizes understanding. PT BELONGINGS LEFT IN PERSONAL ROOM ON SURGICAL FLOOR FOR SAFEKEEPING.
[2024-02-12] MEDS ORDERED: propofoL 20 ML IV ONE (11:47)
[2024-02-12] MEDS ORDERED: Etomidate 2MG / ML 10ML Vial ONE (11:47)
--- NOTE | 2024-02-12 11:55 | NUR ---
02/12/24 1154 Santy Shrestha History, Chart, Medications and Allergies reviewed before start of procedure.MONITOR INTACT WITH CONTINUOUS PULSE OXIMETRY, CONTINUOUS END TITAL CO2, AND INTERMITTENT BLOOD PRESSURE.3-LEAD EKG REVIEWED WITH PHYSICIAN PRIOR TO START OF PROCEDURE.O2 VIA POM INTACT THROUGHOUT SEDATION/PROCEDURE.See Anesthesia record.
[2024-02-12] MEDS ORDERED: Pantoprazole Sodium 40 MG Tab PO SCH (16:30)
--- NOTE | 2024-02-12 17:38 | NUR ---
DIFFICULTY SWALLOWING BARIUM SWALLOW STUDY WAS PLANNED FOR TOMORROW FOR PT, AND PT WAS ORDERED TO REMAIN NPO UNTIL AFTER THE STUDY. PT EXPRESSED DESIRE TO BE ALLOWED TO EAT. THIS RN SPOKE AT LENGTH WITH THE PATIENT AND HER REGARDING CONCERNS. PT VERBALIZED THAT SHE WANTS TO CONTINUE TO EAT REGULAR FOOD AND DOES NOT WISH TO HAVE THE BARIUM SWALLOW STUDY. THIS RN SPOKE WITH HER KATHYA WHO REINFORCED HER WISHES. PT AND HER BOTH DENIED PT HAS DIFFICULTY SWALLOWING AT HOME. DR. DE LEON NOTIFIED OF PT WISHES AND STATED TO DC BARIUM SWALLOW STUDY AND ALLOW PT TO EAT PER PER REQUEST. ROMELIA JOHNSON SPEECH THERAPIST NOTIFIED. PT HAD AN EPISODE OF COUGHING AFTER TAKING PILLS WITH WATER THIS AFTERNOON. SHE ALSO BEGAN CHOKING WHILE EATING DINNER BUT WAS ABLE TO COUGH AND CLEAR THE AIRWAY. EDUCATED PT AND FAMILY THIS KIND OF OCCURANCE IS A SWALLOWING ISSUE AND EDUCATED THAT PEOPLE SILENTLY ASPIRATE. PT AND HER BOTH VERBALIZED UNDERSTANDING OF THIS WELL RISKS.
--- NOTE | 2024-02-12 18:28 | NUR ---
SHIFT SUMMARY PT IS POD#5 FROM [facility]. PT HAD AN EGD TODAY WITH DR. GUADARRAMA, ULCER FOUND. PT EXPRESSED THE DESIRE TO RETURN TO A REGULAR DIET AND NOT HAVE THE BARIUM SWALLOW STUDY ORDERED FOR TOMORROW. SPOKE WITH DR. DE LEON AND SPEECH THERAPY REGARDING PT'S WISHES. PT AND HER WERE ALSO GIVEN EDUCATION REGARDING THE RISKS OF THIS PATIENT CONTINUING TO EAT WITHOUT PROPER EVALUATION, THEY BOTH REPORTED UNDERSTANDING. PT HAS HAD MINIMAL PAIN THIS SHIFT. PT IS ALERT/ORIENTED AND USES THE CALL LIGHT APPROPRIATELY.
[2024-02-12] MEDS ORDERED: HydrALAZINE HCl 25 MG Tab PO SCH (21:00)
[2024-02-13 02:30] VITALS: BP 174/74
[2024-02-13 04:48] VITALS: BP 181/76
--- NOTE | 2024-02-13 05:52 | NUR ---
NOC SUMMARY- NO NEW ISSUES. PT HAD SOME SNACKS AT BED TIME SUGGESTED BY DAY SHIFT RN. PT HAS REMAINED COMFORTABLE. LIVE DRAINING TO GRAVITY. PT REPOSITIONED ORDERED. PT STILL HAVING HTN EPISODES TX PER JUN. PT HAS RESTED COMFORTABLY FOR MOST OF NIGHT. CALL LIGHT IN REACH AND BED ALARM ON.
[2024-02-13 07:17] VITALS: BP 174/71
--- NOTE | 2024-02-13 10:16 | NUR ---
Update Pt A&O x4. BP elevated, medicated per EMAR. VSS. Spo2 > 92% on RA. Pt coughing & turning red, sitting upright for breakfast & medicatins this morning. Pt denying cause being from breakfast but did state choking on pills. Concerns of aspiration voiced to pt. Pt spouse informed as well. This RN reassessed w/ pt spouse awareness of risks of aspiration & recommendation for swallow evaluation. Pt spouse stating "yeah, she coughs, but she doen't stop breathing or anything. I'm always there with her when she eats & she does okay." Attempted to further discuss need for swallow evaluation, but pt spouse interrupting nurse & declining need.
[2024-02-13 11:34] VITALS: BP 169/74
[2024-02-13] MEDS ORDERED: Acetaminophen325 M1 PO (12:16)
[2024-02-13] MEDS ORDERED: HYDRA50 PO (12:18)
[2024-02-13] MEDS ORDERED: PROTONIX4010 PO (12:18)
[2024-02-13 12:52] VITALS: BP 146/64
--- NOTE | 2024-02-13 13:03 | NUR ---
DISCHARGE HOME Pt A&O x4. VSS. Discharge instructions reviewed w/ pt & sent home w/ pt. PIV removed. Garcia cath remains in place d/t report of being chronic. Pt taken out by [employer] transport via [facility]. Pt notified of pt departure.
== END 2024-02-13 13:10 | disposition home or self-care (01) | DRG 417 ==
LOC: ER 23:41 → SURS 23:43
PROVIDERS: Internal Medicine; Student in an Organized Health Care Education/Training Program; Surgery; ADMIT Internal Medicine
PROC: 8E0W4CZ Robotic Assisted Procedure of Trunk Region, Percutaneous Endoscopic Approach (ICD-10-PCS; 2024-02-07)
PROC: 0DH67UZ Insertion of Feeding Device into Stomach, Via Natural or Artificial Opening (ICD-10-PCS; 2024-02-07)
PROC: 0FT44ZZ Resection of Gallbladder, Percutaneous Endoscopic Approach (ICD-10-PCS; principal; 2024-02-07 13:00)
PROC: 0DB68ZX Excision of Stomach, Via Natural or Artificial Opening Endoscopic, Diagnostic (ICD-10-PCS; 2024-02-12)
DX: K81.0 Acute cholecystitis (principal); J69.0 Pneumonitis due to inhalation of food and vomit; K25.4 Chronic or unspecified gastric ulcer with hemorrhage; E87.21 Acute metabolic acidosis; T83.511A Infection and inflammatory reaction due to indwelling urethral catheter, initial encounter; I69.951 Hemiplegia and hemiparesis following unspecified cerebrovascular disease affecting right dominant side; N18.4 Chronic kidney disease, stage 4 (severe); Z74.01 Bed confinement status; G43.909 Migraine, unspecified, not intractable, without status migrainosus; E78.5 Hyperlipidemia, unspecified; K82.A1 Gangrene of gallbladder in cholecystitis; R13.10 Dysphagia, unspecified; E11.65 Type 2 diabetes mellitus with hyperglycemia; E11.22 Type 2 diabetes mellitus with diabetic chronic kidney disease; D50.9 Iron deficiency anemia, unspecified; I10 Essential (primary) hypertension; D63.1 Anemia in chronic kidney disease; Z99.2 Dependence on renal dialysis; Z98.51 Tubal ligation status; Z98.42 Cataract extraction status, left eye; Z98.41 Cataract extraction status, right eye; Z98.890 Other specified postprocedural states; Z79.82 Long term (current) use of aspirin; Z79.4 Long term (current) use of insulin; Z79.899 Other long term (current) drug therapy
CPT/HCPCS: 36415; 51702; 71045; 74176; 76705; 80048; 80053; 81001; 82010; 82272; 82728; 82803; 82947; 83540; 83550; 83690; 84145; 84439; 84443; 85025; 86850; 86900; 86901; 87086; 87493; 88304; 88305; 88342; 92610; 93005; 93010; 94760; 94762; 96361-59; 96365-59; 96375; 96375-59; 96376-59; 99285-25; A9270; G0378; J0330; J0360; J0696; J1100; J1815; J1885; J2371; J2405; J2470; J2543; J2704; J2765; J3010; J7040; J7120

== ENCOUNTER → 2024-02-06 | Outpatient (CLI) | payer OTHER ==
[~2024-02-06] MED LIST changes: +Acetaminophen325 M1 PO; +BASAGLAR K100 UNIT/3 SC; +HYDRA50 PO; +PROTONIX4010 PO; +UBID10 PO
[2024-02-06 15:46] LABS: Albumin, Blood 2.6 g/dL (3.4-5.0); Anion Gap 7 mmol/L (3-11); Blood Urea Nitrogen 65 mg/dL (8-24); CO2, Blood 24 mmol/L (21-32); Calcium, Blood 9.4 mg/dL (8.5-10.1); Chloride, Blood 115 mmol/L (98-108); Creatinine, Blood 2.41 mg/dL (0.40-1.00); Glomerular Filtration Rate 22 (60-); Glucose, Blood 238 mg/dL (70-99); Phosphorus, Blood 5.1 mg/dL (2.5-4.9); Potassium, Blood 4.9 mmol/L (3.5-5.5); Sodium, Blood 141 mmol/L (136-145)
[2024-02-06 16:11] LABS: BASOPHILS ABSOLUTE AUTO 0.08 K/mm3 (0.00-0.23); BASOPHILS PERCENT AUTO 1 % (0-2); EOSINOPHILS ABSOLUTE AUTO 0.41 K/mm3 (0.00-0.68); EOSINOPHILS PERCENT AUTO 4 % (0-6); Hematocrit 32.6 % (33.0-51.0); Hemoglobin 10.2 g/dL (11.5-16.0); IMMATURE GRAN ABSOLUTE AUTO 0.06 K/mm3 (0.00-0.10); IMMATURE GRAN PERCENT AUTO 1 % (0-1); LYMPHOCYTES ABSOLUTE AUTO 1.94 K/mm3 (0.84-5.20); LYMPHOCYTES PERCENT AUTO 18 % (21-46); MONOCYTES ABSOLUTE AUTO 0.52 K/mm3 (0.16-1.47); MONOCYTES PERCENT AUTO 5 % (4-13); Mean Corpuscular HGB 27.6 pg (26.0-34.0); Mean Corpuscular HGB Conc 31.3 g/dL (31.5-36.5); Mean Corpuscular Volume 88 fL (80-100); Mean Platelet Volume 11.2 fL (9.1-12.4); NEUTROPHILS ABSOLUTE AUTO 8.04 K/mm3 (1.96-9.15); NEUTROPHILS PERCENT AUTO 73 % (41-73); Platelet Count 406 K/mm3 (150-400); RDW Coefficient Variation 14.3 % (11.7-14.2); White Blood Cell Count 11.05 K/mm3 (4.00-11.30)
== END ==
LOC: LAB 12:50 → LAB SHORT 12:50
PROVIDERS: Hospitalist
DX: N18.4 Chronic kidney disease, stage 4 (severe) (principal); D64.9 Anemia, unspecified
CPT/HCPCS: 80069; 85025

== ENCOUNTER 2024-03-17 16:39 | Inpatient (IN) | payer OTHER ==
[~2024-03-17] VITALS: Ht 167.6 cm; Wt 86.8 kg
[~2024-03-17 16:39] MED LIST changes: +Acetaminophen325 M1 PO; +BASAGLAR K100 UNIT/3 SC; +HYDRA50 PO; +PROTONIX4010 PO; +UBID10 PO
[2024-03-17] MEDS ORDERED: Albuterol 2.5 MG/3 ML VIAL INH SCH (18:20)
[2024-03-17 19:01] LABS: BASOPHILS ABSOLUTE AUTO 0.11 K/mm3 (0.00-0.23); BASOPHILS PERCENT AUTO 1 % (0-2); EOSINOPHILS ABSOLUTE AUTO 0.48 K/mm3 (0.00-0.68); EOSINOPHILS PERCENT AUTO 4 % (0-6); Hematocrit 28.6 % (33.0-51.0); Hemoglobin 8.7 g/dL (11.5-16.0); IMMATURE GRAN ABSOLUTE AUTO 0.06 K/mm3 (0.00-0.10); IMMATURE GRAN PERCENT AUTO 1 % (0-1); LYMPHOCYTES ABSOLUTE AUTO 1.29 K/mm3 (0.84-5.20); LYMPHOCYTES PERCENT AUTO 11 % (21-46); MONOCYTES ABSOLUTE AUTO 0.59 K/mm3 (0.16-1.47); MONOCYTES PERCENT AUTO 5 % (4-13); Mean Corpuscular HGB 27.1 pg (26.0-34.0); Mean Corpuscular HGB Conc 30.4 g/dL (31.5-36.5); Mean Corpuscular Volume 89 fL (80-100); Mean Platelet Volume 10.3 fL (9.1-12.4); NEUTROPHILS ABSOLUTE AUTO 9.64 K/mm3 (1.96-9.15); NEUTROPHILS PERCENT AUTO 79 % (41-73); Platelet Count 425 K/mm3 (150-400); RDW Coefficient Variation 14.3 % (11.7-14.2); RDW Standard Deviation 46.5 fL (35.1-46.3); Red Blood Cell Count 3.21 M/mm3 (3.80-5.20); White Blood Cell Count 12.17 K/mm3 (4.00-11.30)
[2024-03-17 19:20] LABS: Albumin, Blood 2.7 g/dL (3.4-5.0); Albumin/Globulin Ratio 0.5 (0.8-1.8); Bilirubin, Total 0.3 mg/dL (0.1-1.0); Bun/Creatinine Ratio 27.4 (12.0-20.0); Calcium, Blood 9.1 mg/dL (8.5-10.1); Creatinine, Blood 2.48 mg/dL (0.40-1.00); Globulin, Blood 5.7 g/dL (2.2-4.0); Potassium, Blood 5.1 mmol/L (3.5-5.5); Total Protein, Blood 8.4 g/dL (6.4-8.2)
[2024-03-17] MEDS ORDERED: Furosemide 10 MG/ML 4ML Vial IV ONE (20:10)
[2024-03-17] MEDS ORDERED: Ondansetron HCl 2 MG / ML 2ML Vial IV PRN (22:00)
[2024-03-17] MEDS ORDERED: Acetaminophen 325 MG TABLET PO PRN (22:05)
[2024-03-17] MEDS ORDERED: FLU VACC TS2024-25(6MOS UP)/PF 45 MCG/0.5 ML SYRINGE IM ONE (22:05)
[2024-03-17] MEDS ORDERED: HYDROcodone 5-APAP 325 TAB PO PRN (22:05)
[2024-03-18 00:37] VITALS: BP 153/63
[2024-03-18] MEDS ORDERED: Insulin Glargine-Yfgn 100 Unit/mL 3 ML SYR SC SCH ×2 (01:11→21:00)
[2024-03-18 04:36] VITALS: BP 149/63
[2024-03-18 04:47] LABS: BASOPHILS ABSOLUTE AUTO 0.09 K/mm3 (0.00-0.23); BASOPHILS PERCENT AUTO 1 % (0-2); EOSINOPHILS ABSOLUTE AUTO 0.09 K/mm3 (0.00-0.68); EOSINOPHILS PERCENT AUTO 1 % (0-6); Hematocrit 25.1 % (33.0-51.0); Hemoglobin 7.5 g/dL (11.5-16.0); IMMATURE GRAN ABSOLUTE AUTO 0.04 K/mm3 (0.00-0.10); IMMATURE GRAN PERCENT AUTO 0 % (0-1); LYMPHOCYTES ABSOLUTE AUTO 0.58 K/mm3 (0.84-5.20); LYMPHOCYTES PERCENT AUTO 5 % (21-46); MONOCYTES ABSOLUTE AUTO 0.62 K/mm3 (0.16-1.47); MONOCYTES PERCENT AUTO 5 % (4-13); Mean Corpuscular HGB 26.8 pg (26.0-34.0); Mean Corpuscular HGB Conc 29.9 g/dL (31.5-36.5); Mean Corpuscular Volume 90 fL (80-100); Mean Platelet Volume 10.5 fL (9.1-12.4); NEUTROPHILS ABSOLUTE AUTO 10.29 K/mm3 (1.96-9.15); NEUTROPHILS PERCENT AUTO 88 % (41-73); Platelet Count 357 K/mm3 (150-400); RDW Coefficient Variation 14.6 % (11.7-14.2); RDW Standard Deviation 47.8 fL (35.1-46.3); White Blood Cell Count 11.71 K/mm3 (4.00-11.30)
[2024-03-18 05:18] LABS: Albumin, Blood 2.5 g/dL (3.4-5.0); Albumin/Globulin Ratio 0.5 (0.8-1.8); Bilirubin, Total 0.2 mg/dL (0.1-1.0); Bun/Creatinine Ratio 27.4 (12.0-20.0); Creatinine, Blood 2.66 mg/dL (0.40-1.00); Globulin, Blood 4.9 g/dL (2.2-4.0); Magnesium, Blood 2.2 mg/dL (1.6-2.4); Potassium, Blood 5.1 mmol/L (3.5-5.5); Total Protein, Blood 7.4 g/dL (6.4-8.2)
--- NOTE | 2024-03-18 05:20 | NUR ---
SHIFT SUMMARY NOC ADMIT FROM ED WITH DX ACUTE RESPIRATORY FAILURE. PT ON O2 2L/NC, BUT RA BASELINE. MAINTAINING SPO2 >94%. PT A/O X 3-4. SLOW TO RESPOND AT TIMES. PT HAS RESIDUAL R SIDED DEFICITS FROM PRIOR CVA 3 YEARS AGO AND IS BEDBOUND AT BASELINE. PT HAS CHRONIC LIVE IN PLACE THAT WAS REPLACED A FEW DAYS AGO BY HOME HEALTH RN. UPON ADMIT PT VOMITTED 3 TIMES AND GIVEN ZOFRAN. CBG 277 WHEN CHECKED AND LONG ACTING 15 UNITS GIVEN. PT ALSO HAS CHRONIC ANEMIA AND HGB 7.5. PT ALSO HAS REDDENED AREA ON COCCYX THAT IS BLANCHABLE, BARRIER CREAM AND MEPILEX IN PLACE C/D/I. PT CURRENTLY RESTING WITH BED IN LOWEST POSITION, AND CALL LIGHT WITHIN REACH.
[2024-03-18] MEDS ORDERED: Pantoprazole Sodium 40 MG Tab PO SCH (06:00)
[2024-03-18 07:13] VITALS: BP 129/68
[2024-03-18] MEDS ORDERED: Insulin Human Lispro 100 Units/ML 3ML Syringe SC SCH (07:30)
[2024-03-18] MEDS ORDERED: AmLODIPine Besylate 5 MG Tab PO SCH (09:00)
[2024-03-18] MEDS ORDERED: Enoxaparin 30 MG/0.3 ML SYR SC SCH (09:00)
[2024-03-18] MEDS ORDERED: Furosemide 10 MG/ML 4ML Vial IV SCH (09:00)
[2024-03-18] MEDS ORDERED: Potassium Chloride 20 MEQ TabCR PO SCH (09:00)
[2024-03-18] MEDS ORDERED: HydrALAZINE HCl 50 MG Tab PO SCH (09:00)
[2024-03-18] MEDS ORDERED: Atorvastatin 40 MG Tab PO SCH (09:00)
[2024-03-18 13:22] LABS: Hematocrit 26.6 % (33.0-51.0); Hemoglobin 8.1 g/dL (11.5-16.0)
[2024-03-18 15:22] VITALS: BP 155/72
[2024-03-18 19:20] VITALS: BP 150/77
--- NOTE | 2024-03-18 19:32 | NUR ---
SHIFT SUMMARY PATIENT A/OX4. BEDBOUND BASELINE. CVA HISTORY WITH R SIDE DEFICITS. EDEMA TO BILAT LE AND R HAND. ELEVATED ON PILLOWS. DIURESING WITH LASIX. CHRONIC LIVE PRESENT. DR. VORA CONSULTED. URINE SPECIMEN COLLECTED FROM LIVE. PT HAD A HACKING COUGH AND REPORTED SOME FRUIT JUICE WENT DOWN THE WRONG PIPE AT DINNER. DIET CHANGED TO SOFT BITE SIZE STILL FOLLOWING THE SODIUM 2G. PT HAD TO BE INCREASED TO 4L NC AFTER COUGHING EPISODE AT DINNER. REPOSITIONING IN BED.CALL [facility] IN REACH. REPORT GIVEN TO LUCY TABOR
[2024-03-19 02:53] VITALS: BP 151/71
--- NOTE | 2024-03-19 03:23 | NUR ---
SHIFT SUMMARY PT A&O X4, ABLE TO MAKE HER NEEDS KNOWN. AT SHIFT CHANGE, PT COUGHING AFTER HAVING THIN LIQUIDS, O2 SAT'S @76 @3L. PT STATES "IT WAS THE PINEAPPLE THAT MADE ME COUGH" TO THIS HAIRSPRING STAKER. THIS HAIRSPRING STAKER OFFERED NECTAR THICK FLUIDS WITH MEDICATIONS. PT ABLE TO SWALLOW WELL W/O ANY COMPLAINTS. LATER THIS SHIFT PT REPORTING TO THIS HAIRSPRING STAKER THAT SHE DOES NOT HAVE ANY PROBLEMS SWALLOWING THIN LIQUIDS, PT REFUSING NECTAR THICK. HOB>45 DEGREES. RIGHT UE&LE ELEVATED WITH PILLOWS, DEFICIT FROM HX CVA. PT USING LEFT HAND TO USE THE CALL LIGHT. EDEMA +2 ON RIGHT LE. HEEL PROTECTORS IN PLACE. CHRONIC LIVE DRAINING YELLOW COLOR URINE. PT C/O ABDOMINAL PAIN 07/05, REQUESTED TYLENOL PRN WITH GOOD EFFECTIVNESS. HS B. NO ACUTE EVENTS DURING THIS SHIFT. BED AT THE LOWEST POSITION, CALL LIGHT WITHIN REACH.
[2024-03-19 04:47] LABS: Hematocrit 24.9 % (33.0-51.0); Hemoglobin 7.3 g/dL (11.5-16.0); Mean Corpuscular HGB 26.4 pg (26.0-34.0); Mean Corpuscular HGB Conc 29.3 g/dL (31.5-36.5); Mean Corpuscular Volume 90 fL (80-100); Mean Platelet Volume 10.7 fL (9.1-12.4); Platelet Count 359 K/mm3 (150-400); RDW Coefficient Variation 14.7 % (11.7-14.2); RDW Standard Deviation 48.9 fL (35.1-46.3); Red Blood Cell Count 2.76 M/mm3 (3.80-5.20); White Blood Cell Count 11.06 K/mm3 (4.00-11.30)
[2024-03-19 05:17] LABS: Albumin, Blood 2.4 g/dL (3.4-5.0); Anion Gap 11 mmol/L (3-11); Blood Urea Nitrogen 70 mg/dL (8-24); Bun/Creatinine Ratio 23.9 (12.0-20.0); CO2, Blood 21 mmol/L (21-32); Chloride, Blood 116 mmol/L (98-108); Creatinine, Blood 2.93 mg/dL (0.40-1.00); Glomerular Filtration Rate 17 (60-); Glucose, Blood 144 mg/dL (70-99); Iron Serum 24 ug/dL (50-170); Percent Saturation 11.4 % (15.0-50.0); Phosphorus, Blood 4.8 mg/dL (2.5-4.9); Potassium, Blood 5.1 mmol/L (3.5-5.5); Sodium, Blood 143 mmol/L (136-145); Total Iron Binding Capacity 211 ug/dL (250-450)
[2024-03-19 07:22] VITALS: BP 138/67
[2024-03-19 09:45] VITALS: BP 144/88
[2024-03-19] MEDS ORDERED: Sod Ferric Gluc Complx/Sucrose 125 MG in NS 100 ML IV SCH (11:14)
[2024-03-19 11:55] LABS: Hematocrit 25.9 % (33.0-51.0); Hemoglobin 7.7 g/dL (11.5-16.0)
[2024-03-19 14:57] VITALS: BP 131/93
--- NOTE | 2024-03-19 18:16 | NUR ---
PATIENT IS ALERT AND ORIENTED AND COOPERATIVE WITH CARE. RIGHT SIDE WEAKNESS FROM AN OLD CVA ACCORDING TO THE PATIENT. BEDBOUND AT BASELINE. Q2H TURNS. CHRONIC LIVE IS IN PLACE AND PATENT.PATIENT FEEDS HERSELF. REFUSED TO WORK WITH SPEECH THERAPY. ON 2L O2 VIA NC. CONTINUOUS PULSE IS ON PLACE. BEDBATH TODAY. PREVENTATIVE MEPILEX IN PLACE ON SACRUM. REFUSES THICKENED LIQUIDS. NO C/O PAIN. HER VISTED TODAY. WILL CONTINUE TO MONITOR
[2024-03-19 19:23] VITALS: BP 159/68
[2024-03-19] MEDS ORDERED: Epoetin Alfa-EPBX 10,000 Unit/ML 1ML Vial IV SCH (21:30)
[2024-03-20 01:46] VITALS: BP 154/130
[2024-03-20 05:12] LABS: Hematocrit 25.1 % (33.0-51.0); Hemoglobin 7.4 g/dL (11.5-16.0); Mean Corpuscular HGB 26.6 pg (26.0-34.0); Mean Corpuscular HGB Conc 29.5 g/dL (31.5-36.5); Mean Corpuscular Volume 90 fL (80-100); Mean Platelet Volume 11.1 fL (9.1-12.4); Platelet Count 346 K/mm3 (150-400); RDW Coefficient Variation 14.6 % (11.7-14.2); RDW Standard Deviation 48.6 fL (35.1-46.3); Red Blood Cell Count 2.78 M/mm3 (3.80-5.20); White Blood Cell Count 10.19 K/mm3 (4.00-11.30)
[2024-03-20 05:35] LABS: Albumin, Blood 2.5 g/dL (3.4-5.0); Anion Gap 12 mmol/L (3-11); Blood Urea Nitrogen 80 mg/dL (8-24); Bun/Creatinine Ratio 25.2 (12.0-20.0); CO2, Blood 21 mmol/L (21-32); Calcium, Blood 8.8 mg/dL (8.5-10.1); Chloride, Blood 114 mmol/L (98-108); Creatinine, Blood 3.18 mg/dL (0.40-1.00); Glomerular Filtration Rate 16 (60-); Glucose, Blood 132 mg/dL (70-99); Phosphorus, Blood 4.4 mg/dL (2.5-4.9); Potassium, Blood 5.5 mmol/L (3.5-5.5); Sodium, Blood 141 mmol/L (136-145)
--- NOTE | 2024-03-20 06:41 | NUR ---
SHIFT SUMMARY PT PLEASANT AND COOPERATIVE WITH CARE. LYING IN BED WATCHING TV UPON START OF SHIFT. PT HAS HAD ELEVATED BP S. PT STABLE AND ASYMPTOMATIC. WILL RETAKE BP AND CONTINUE TO MONITOR. PT HAS REDNESS AND SLIGHT BLEEDING SPOTS FROM BRIEF RUBBING IN AREA. AREA CLEANED AND POWDER APPLIED. PT SLEPT FOR DURATION OF SHIFT. XRAY ARRIVAL APPROX [phone]. LEFT [phone].
[2024-03-20 07:08] VITALS: BP 148/72
[2024-03-20] MEDS ORDERED: Furosemide 10 MG/ML 4ML Vial IV SCH (09:00)
[2024-03-20] MEDS ORDERED: Losartan Potassium 50 MG Tab PO SCH (09:00)
[2024-03-20 15:11] VITALS: BP 144/83
--- NOTE | 2024-03-20 17:26 | NUR ---
PT IS AOX3 AND COOPERATIVE OF CARE. PT HAS BEEN DOING WELL CONTINUES TO NEED 1L OF O2 SHE BEGINS TO DESAT ON RA AND NEEDS BUMPED UP TO 3L WHEN ROLLED AROUND IN BED FOR CHANGES. PT ALSO HAD ONE EPISODE OF TROUBLE TAKING LAST VERY SMALL PILL TRIED TO SWALLOW AND PILL CAUSES HER TO NEED TO COUGH,BUT SHE COULD NOT FOR A MOMENT. WAS ABLE TO RESOLVE, BUT PT DID DESAT AND NEEDED 02 BUMPED UP TO 3L FOR A BIT UNTIL SHE RECOVERED. PT IS INCONTENT OF BOWL AND CALOS IS PATIENT. PT ABLE TO MAKE NEEDS KNOWN AN USE CALL LIGHT WILL CONTINUE TO MONITOR.
[2024-03-20 19:17] VITALS: BP 134/101
[2024-03-20] MEDS ORDERED: Docusate Sodium 100 MG UDC PO PRN ×2 (22:00)
[2024-03-20] MEDS ORDERED: Docusate Sodium 100 MG Cap PO PRN (22:55)
[2024-03-21 02:47] VITALS: BP 164/96
--- NOTE | 2024-03-21 05:04 | NUR ---
ADMITTED 03/17/24: ACUTE RESPIRATORY FAILURE. AAOX3, SLOW TO RESPOND TO QUESTIONS D/T CA IN 2020. R SIDED RUE FLACID AND RLE WEAK. BASELINE IS BEDREST. 1-2L O2 VIA NC TO KEEP SAT>88%. REC'D ORDER FOR BID PRN COLACE, +BM. CHRONIC LIVE CATH. PT WAS RESTLESS D/T CONCERN FOR HER BOWELS. AC HS BLOOD GLUCOSE CHECKS. PLAN IS HOME WITH HOME HEALTH CARE.
[2024-03-21 05:18] LABS: Hematocrit 26.1 % (33.0-51.0); Hemoglobin 7.8 g/dL (11.5-16.0)
[2024-03-21 05:43] LABS: Albumin, Blood 2.6 g/dL (3.4-5.0); Anion Gap 11 mmol/L (3-11); Blood Urea Nitrogen 79 mg/dL (8-24); Bun/Creatinine Ratio 24.2 (12.0-20.0); CO2, Blood 22 mmol/L (21-32); Chloride, Blood 115 mmol/L (98-108); Creatinine, Blood 3.26 mg/dL (0.40-1.00); Glomerular Filtration Rate 15 (60-); Glucose, Blood 172 mg/dL (70-99); Phosphorus, Blood 4.4 mg/dL (2.5-4.9); Potassium, Blood 5.2 mmol/L (3.5-5.5); Sodium, Blood 143 mmol/L (136-145)
[2024-03-21 07:14] VITALS: BP 165/96
[2024-03-21] MEDS ORDERED: Sodium Zirconium Cyclosilicate 10 GM Packet PO SCH (09:00)
[2024-03-21 15:30] VITALS: BP 156/72
--- NOTE | 2024-03-21 16:30 | NUR ---
NO ACUTE CHANGES PT AOX3 AND COOPERATIVE OF CARE. PT CONTINUES ON 1 L SHE STARTS TO DESAT WHEN PUT TO ROOM AIR OR IF SHE IS BEING TURNED. PT PLEASANT AND INTERACTED WITH ALL CARE. TURNED Q2 HRS AND READJUSTED FREQUENTLY. CALL LIGHT IS WITHIN REACH AND PT CAN USE APPROPRAITELY NO DISTRESS NOTED. WILL CONTINUE TO MONITOR.
[2024-03-21 19:44] VITALS: BP 172/70
[2024-03-22 04:45] VITALS: BP 149/76
[2024-03-22 05:45] LABS: Albumin, Blood 2.4 g/dL (3.4-5.0); Anion Gap 12 mmol/L (3-11); Blood Urea Nitrogen 80 mg/dL (8-24); CO2, Blood 21 mmol/L (21-32); Calcium, Blood 8.6 mg/dL (8.5-10.1); Chloride, Blood 116 mmol/L (98-108); Creatinine, Blood 3.34 mg/dL (0.40-1.00); Glomerular Filtration Rate 15 (60-); Glucose, Blood 167 mg/dL (70-99); Phosphorus, Blood 4.2 mg/dL (2.5-4.9); Potassium, Blood 5.1 mmol/L (3.5-5.5); Sodium, Blood 144 mmol/L (136-145)
--- NOTE | 2024-03-22 05:55 | NUR ---
PT SLEPT THROUGHOUT THE NIGHT. USES HER CALL LIGHT FOR NEEDS. REPO TO POC PRN. PLEASANT, COOPERATIVE AND LOOKING FORWARD TO GOING HOME TODAY WITH HOME HEALTH.
[2024-03-22 07:49] VITALS: BP 130/85
[2024-03-22] MEDS ORDERED: LOSA50 PO (11:25)
[2024-03-22] MEDS ORDERED: FERSU300 PO (11:26)
[2024-03-22] MEDS ORDERED: Acerola C500 MG PO (11:26)
[2024-03-22] MEDS ORDERED: DOCU100 PO (11:26)
[2024-03-22 15:04] VITALS: BP 165/63
--- NOTE | 2024-03-22 15:53 | NUR ---
PT DISCHARGED AT 1535 VIA AMBULANCE AND PACKET WAS GIVEN TO PT TO TAKE HOME. DISCHARGE REVIEWED AND EDUCATIONAL MATERIAL SENT WITH PT. PERSONAL BELONGS WERE COLLECTED AND TAKEN WITH HER. PORTABLE O2 TANK WAS DROPPED OFF FOR PT. NO DISTRESS NOTED. AOX3 AND COOPERATIVE OF ALL CARE.
== END 2024-03-22 15:44 | disposition home health service (06) | DRG 291 ==
LOC: ER 16:39 → ERHOLD 22:33 → ER 22:33 → MEDS 22:33 → ERHOLD 03-18 00:12 → MEDS 03-18 00:12 → ERHOLD 03-18 00:31 → MEDS 03-18 00:31
PROVIDERS: Emergency Medicine; Internal Medicine; ADMIT Student in an Organized Health Care Education/Training Program
DX: I13.0 Hypertensive heart and chronic kidney disease with heart failure and stage 1 through stage 4 chronic kidney disease, or unspecified chronic kidney disease (principal); I50.33 Acute on chronic diastolic (congestive) heart failure; J96.01 Acute respiratory failure with hypoxia; N18.4 Chronic kidney disease, stage 4 (severe); N17.9 Acute kidney failure, unspecified; I69.351 Hemiplegia and hemiparesis following cerebral infarction affecting right dominant side; E78.5 Hyperlipidemia, unspecified; G43.909 Migraine, unspecified, not intractable, without status migrainosus; E11.65 Type 2 diabetes mellitus with hyperglycemia; D63.1 Anemia in chronic kidney disease; D50.9 Iron deficiency anemia, unspecified; E11.22 Type 2 diabetes mellitus with diabetic chronic kidney disease; I35.8 Other nonrheumatic aortic valve disorders; R13.10 Dysphagia, unspecified; E88.09 Other disorders of plasma-protein metabolism, not elsewhere classified; E87.5 Hyperkalemia; Z98.51 Tubal ligation status; Z98.42 Cataract extraction status, left eye; Z98.41 Cataract extraction status, right eye; Z98.890 Other specified postprocedural states; Z87.19 Personal history of other diseases of the digestive system; Z90.49 Acquired absence of other specified parts of digestive tract; Z90.89 Acquired absence of other organs; Z79.85 Long-term (current) use of injectable non-insulin antidiabetic drugs; Z79.899 Other long term (current) drug therapy; Z79.891 Long term (current) use of opiate analgesic; Z79.02 Long term (current) use of antithrombotics/antiplatelets; Z99.81 Dependence on supplemental oxygen; Z87.11 Personal history of peptic ulcer disease; Z87.2 Personal history of diseases of the skin and subcutaneous tissue; Z28.21 Immunization not carried out because of patient refusal; Z74.01 Bed confinement status; Z79.4 Long term (current) use of insulin
CPT/HCPCS: 36415; 71045; 80053; 80069; 82570; 82947; 83540; 83550; 83735; 83880; 84156; 85014; 85018; 85025; 85027; 93005; 93010; 93306; 94644; 94664; 94761; 94762; 96374; 99285-25; A9270; J1650; J1815; J1940; J2405; J2916; Q5106

== ENCOUNTER 2024-04-05 14:37 | Inpatient (IN) | payer OTHER ==
[~2024-04-05] VITALS: Ht 165.1 cm; Wt 74.1 kg
[~2024-04-05 14:37] MED LIST changes: +Acerola C500 MG PO; +DOCU100 PO; +FERSU300 PO; +LOSA50 PO
[2024-04-05] MEDS ORDERED: Albuterol 2.5 MG/3 ML VIAL INH SCH ×2 (15:00→15:55)
[2024-04-05] MEDS ORDERED: Ipratropium Bromide INH 0.02% 0.5 mg/2.5ML Vial INH SCH (15:00)
[2024-04-05] MEDS ORDERED: MethylPREDNISolone Sod Succ 125 MG Vial IV ONE (15:00)
[2024-04-05 15:10] LABS: BASOPHILS ABSOLUTE AUTO 0.07 K/mm3 (0.00-0.23); BASOPHILS PERCENT AUTO 1 % (0-2); EOSINOPHILS ABSOLUTE AUTO 0.19 K/mm3 (0.00-0.68); EOSINOPHILS PERCENT AUTO 2 % (0-6); Hematocrit 30.1 % (33.0-51.0); Hemoglobin 8.3 g/dL (11.5-16.0); IMMATURE GRAN ABSOLUTE AUTO 0.07 K/mm3 (0.00-0.10); IMMATURE GRAN PERCENT AUTO 1 % (0-1); LYMPHOCYTES ABSOLUTE AUTO 1.99 K/mm3 (0.84-5.20); LYMPHOCYTES PERCENT AUTO 20 % (21-46); MONOCYTES ABSOLUTE AUTO 0.47 K/mm3 (0.16-1.47); MONOCYTES PERCENT AUTO 5 % (4-13); Mean Corpuscular HGB 26.5 pg (26.0-34.0); Mean Corpuscular HGB Conc 27.6 g/dL (31.5-36.5); Mean Corpuscular Volume 96 fL (80-100); Mean Platelet Volume 10.8 fL (9.1-12.4); NEUTROPHILS ABSOLUTE AUTO 7.16 K/mm3 (1.96-9.15); NEUTROPHILS PERCENT AUTO 72 % (41-73); Platelet Count 293 K/mm3 (150-400); Red Blood Cell Count 3.13 M/mm3 (3.80-5.20); White Blood Cell Count 9.95 K/mm3 (4.00-11.30)
[2024-04-05 15:44] LABS: Albumin, Blood 2.9 g/dL (3.4-5.0); Albumin/Globulin Ratio 0.5 (0.8-1.8); Bilirubin, Total 0.2 mg/dL (0.1-1.0); Bun/Creatinine Ratio 31.2 (12.0-20.0); Calcium, Blood 9.4 mg/dL (8.5-10.1); Creatinine, Blood 3.01 mg/dL (0.40-1.00); Globulin, Blood 5.4 g/dL (2.2-4.0); Total Protein, Blood 8.3 g/dL (6.4-8.2)
[2024-04-05 15:45] LABS: Base Excess Venous -5.9 mmol/L; Bicarbonate Venous 19.5 mmol/L (24.0-30.0); PCO2 Venous 63.2 mmHg (38-42)
[2024-04-05 15:45] LABS: Potassium, Blood 6.8 mmol/L (3.5-5.5)
[2024-04-05 15:46] LABS: pH Blood Venous 7.16 (7.34-7.37)
[2024-04-05] MEDS ORDERED: Insulin Regular 100 Unit/ML 1ML Dose IV ONE (15:55)
[2024-04-05] MEDS ORDERED: Dextrose 50% 50 ML Syringe IV ONE (16:00)
[2024-04-05] MEDS ORDERED: Furosemide 10 MG/ML 4ML Vial IV ONE (16:05)
[2024-04-05] MEDS ORDERED: Dextrose 50% 50 ML Vial ONE (16:07)
[2024-04-05] MEDS ORDERED: Calcium Chloride 10% 100 MG/ML 10ML Vial IV SCH (16:10)
[2024-04-05] MEDS ORDERED: Dextrose 50% 50 ML Vial IV ONE (16:15)
[2024-04-05] MEDS ORDERED: Calcium Gluconate 10% 100 MG/ML INJ ONE (16:15)
[2024-04-05] MEDS ORDERED: Calcium Gluconate 10% 100 MG/ML INJ IV ONE (16:25)
[2024-04-05] MEDS ORDERED: Ondansetron HCl 2 MG / ML 2ML Vial IV PRN (17:30)
[2024-04-05] MEDS ORDERED: FLU VACC TS2024-25(6MOS UP)/PF 45 MCG/0.5 ML SYRINGE IM SCH (17:35)
[2024-04-05] MEDS ORDERED: Acetaminophen 325 MG TABLET PO PRN (17:35)
[2024-04-05] MEDS ORDERED: Ipratropium/Albuterol SulF 2.5-0.5MG/3 ML Amp INH SCH (17:40)
[2024-04-05] MEDS ORDERED: Sodium Zirconium Cyclosilicate 10 GM Packet PO SCH (18:00)
[2024-04-05] MEDS ORDERED: HYDROcodone 5-APAP 325 TAB PO PRN (18:05)
[2024-04-05 18:23] LABS: Source, Urine Foley catheter
[2024-04-05 18:24] LABS: Appearance, Urine Cloudy (Clear); Bilirubin, Urine Neg (Neg); Blood, Urine 4+ (Neg); Glucose Qualitative, Urine 2+ (Neg); Ketones, Urine Neg (Neg); Leukocyte Esterase, Urine 2+ (Neg); Nitrite, Urine Neg (Neg); Protein, Urine 4+ (Neg); Specific Gravity, Urine 1.015 (1.003-1.022); Urobilinogen, Urine NORM (Normal)
[2024-04-05 18:34] LABS: Color, Urine Pale Yellow (P-Yellow)
[2024-04-05 18:35] VITALS: BP 155/75
[2024-04-05 18:35] LABS: Amorphous Light (0-Heavy); Bacteria Mod /hpf; Hyaline Casts 0-2 /lpf (0-2); Squamous Epithelial Cells Not Seen /hpf (Few); Transitional Epithelial Cells Rare /hpf (0-Rare); White Blood Cells, Urine 25-50 /hpf (0-5)
--- NOTE | 2024-04-05 18:47 | NUR ---
DR GONZÁLES CALLED ABOUT STAGE 2 PRESSURE SORE ON THE LEFT HEEL AND STAGE 1 PRESSURE SORE ON THE PT'S COCCYX.
[2024-04-05] MEDS ORDERED: DIPH25 PO (18:58)
[2024-04-05 19:19] LABS: Base Excess Venous -8.5 mmol/L; Bicarbonate Venous 17.7 mmol/L (24.0-30.0); PCO2 Venous 48.4 mmHg (38-42); pH Blood Venous 7.21 (7.34-7.37)
[2024-04-05 20:03] LABS: Anion Gap 10 mmol/L (3-11); Blood Urea Nitrogen 95 mg/dL (8-24); Bun/Creatinine Ratio 31.1 (12.0-20.0); CO2, Blood 21 mmol/L (21-32); Calcium, Blood 9.4 mg/dL (8.5-10.1); Chloride, Blood 119 mmol/L (98-108); Creatinine, Blood 3.05 mg/dL (0.40-1.00); Glomerular Filtration Rate 17 (60-); Glucose, Blood 273 mg/dL (70-99); Phosphorus, Blood 4.9 mg/dL (2.5-4.9); Potassium, Blood 5.9 mmol/L (3.5-5.5); Sodium, Blood 144 mmol/L (136-145)
[2024-04-05] MEDS ORDERED: Insulin Glargine-Yfgn 100 Unit/mL 3 ML SYR SC SCH (21:00)
[2024-04-05] MEDS ORDERED: Docusate Sodium 100 MG Cap PO SCH (21:00)
[2024-04-05] MEDS ORDERED: Lactobacil 2-S.Thermo-Bifido 1 1 Cap PO SCH (21:00)
[2024-04-05] MEDS ORDERED: HydrALAZINE HCl 50 MG Tab PO SCH (21:00)
[2024-04-05 23:00] VITALS: BP 135/65
[2024-04-06] MEDS ORDERED: MethylPREDNISolone Sod Succ 125 MG Vial IV SCH
--- NOTE | 2024-04-06 00:54 | NUR ---
POSSIBLE ASPIRATION: PATIENT AFTER MEAL AND DRINKS, BEDSIDE SWALLOW PREFORMED AND WAS WELL. WAS ASSESSING PATIENT IN THE ROOM AFTER SHE STARTED TO COUGH AND REQUIRED SUCTION IN THE BACK OF HER THROAT. RR SHOT UP TO MID 40'S FOR LESS A THAN 20 MINUTES. SLOWLY BEGAN TO RELAX AFTER BEING ON BIPAP, THAN SWITCHED BACK TO NC AT 8L. PATIENT SEVERELY EDUCATED ON INCREASED RISK OF ASPIRATION, FLUID RESTRICTION AND POTENTAIL FOR WORSENING OF CONDITION. PATIENT APPEARS TO UNDERSTAND, ORAL CARE PROVIDED NOW AND IS RESTING ON 8L VIA NC RR IN THE LOW 20'S TO UPPER TEENS. RESIDENT AWARE, WILL ATTEMPT NPO AND ANOTHER BEDSIDE SWALLOW STUDY IN THE AM. SPEECH THERAPY ORDER PLACED AFTER SPEAKING WITH RESIDENT AND NPO EXCEPT FOR MEDS FROM THIS RN.
[2024-04-06 03:26] VITALS: BP 146/89
--- NOTE | 2024-04-06 03:35 | NUR ---
EOS: PATIETN THROUGH THE NIGHT WAS ABLE TO TOLERATE THE BIPAP AT 10/5 AT 40%. RR IN THE 20'S DID NEED MULTIPLE BREAKS. HAS BEEN SR. SPO2 >92% ON 8L VIA NC FOR THOSE BREAKS, ORAL CARE PROVIDED MULTIPLE TIMES, CATH CARE PREFOMRED AT BEGGINING OF THE SHIFT. PATIENT THIS EARLY AM HAS BEEN RIPPING OF NC REORIENTS MOST OF THE TIME, STILL HAVING MUMBLE SPEECH. MOVEMENT OF THE LEFT ARM HAS BEEN MORE SPASMING, PUPILS REACTIVE AND RESPONDING TO LIGHT STILL FOLLOWING COMMANDS, ADDITIONAL LINE PLACED.
[2024-04-06 04:14] LABS: Base Excess Venous -7.1 mmol/L; PCO2 Venous 37.3 mmHg (38-42); pH Blood Venous 7.32 (7.34-7.37)
[2024-04-06 04:16] LABS: BASOPHILS ABSOLUTE AUTO 0.01 K/mm3 (0.00-0.23); BASOPHILS PERCENT AUTO 0 % (0-2); EOSINOPHILS PERCENT AUTO 0 % (0-6); Hematocrit 28.8 % (33.0-51.0); Hemoglobin 8.1 g/dL (11.5-16.0); IMMATURE GRAN ABSOLUTE AUTO 0.03 K/mm3 (0.00-0.10); IMMATURE GRAN PERCENT AUTO 0 % (0-1); LYMPHOCYTES ABSOLUTE AUTO 0.21 K/mm3 (0.84-5.20); LYMPHOCYTES PERCENT AUTO 2 % (21-46); MONOCYTES ABSOLUTE AUTO 0.03 K/mm3 (0.16-1.47); MONOCYTES PERCENT AUTO 0 % (4-13); Mean Corpuscular HGB Conc 28.1 g/dL (31.5-36.5); Mean Corpuscular Volume 96 fL (80-100); Mean Platelet Volume 11.3 fL (9.1-12.4); NEUTROPHILS ABSOLUTE AUTO 9.19 K/mm3 (1.96-9.15); NEUTROPHILS PERCENT AUTO 97 % (41-73); Platelet Count 253 K/mm3 (150-400); RDW Coefficient Variation 15.4 % (11.7-14.2); RDW Standard Deviation 53.5 fL (35.1-46.3); White Blood Cell Count 9.47 K/mm3 (4.00-11.30)
[2024-04-06 04:51] LABS: Magnesium, Blood 2.6 mg/dL (1.6-2.4)
[2024-04-06 05:00] LABS: Albumin, Blood 2.8 g/dL (3.4-5.0); Albumin/Globulin Ratio 0.6 (0.8-1.8); Bilirubin, Total 0.3 mg/dL (0.1-1.0); Bun/Creatinine Ratio 31.5 (12.0-20.0); Calcium, Blood 9.4 mg/dL (8.5-10.1); Creatinine, Blood 3.11 mg/dL (0.40-1.00); Total Protein, Blood 7.8 g/dL (6.4-8.2)
[2024-04-06] MEDS ORDERED: Insulin Regular 100 UNIT/ML 10ML Vial IV ONE ×4 (06:00→16:48)
[2024-04-06] MEDS ORDERED: Pantoprazole Sodium 40 MG Tab PO SCH (06:00)
[2024-04-06] MEDS ORDERED: Sodium Bicarb 8.4% 1 MEQ/ML 50 ML Vial IV ONE (06:00)
[2024-04-06 06:08] LABS: Bun/Creatinine Ratio 31.9 (12.0-20.0); Calcium, Blood 9.4 mg/dL (8.5-10.1); Creatinine, Blood 3.07 mg/dL (0.40-1.00); Potassium, Blood 6.7 mmol/L (3.5-5.5)
--- NOTE | 2024-04-06 06:44 | NUR ---
HYPERKALEMIA, INTITAL DRAW 7.0 AMBER 6.7CHARGE RN SPOKE WITH DR. ALVARADO, 1 ORDER FOR BICARB AMP 10U HUMULIN R PATIENT SPEECH DID IMPROVE AFTER BEING AWAKE, LESS MUSCLE SPASMING. PATIENT STILL ALERT AND ORIENTED 3-4.
[2024-04-06] MEDS ORDERED: Insulin Human Lispro 100 Units/ML 3ML Syringe SC SCH ×3 (07:30→21:00)
[2024-04-06 07:46] VITALS: BP 174/81
[2024-04-06] MEDS ORDERED: Ferrous Sulfate 325 MG Tab PO SCH (08:00)
[2024-04-06] MEDS ORDERED: Ascorbic Acid 250 MG Chew PO SCH (09:00)
[2024-04-06] MEDS ORDERED: Furosemide 10 MG / ML 2ML Vial IV ONE (09:00)
[2024-04-06] MEDS ORDERED: Albuterol 2.5 MG/3 ML VIAL INH ONE ×2 (09:00→16:45)
[2024-04-06] MEDS ORDERED: Atorvastatin 40 MG Tab PO SCH (09:00)
[2024-04-06] MEDS ORDERED: AmLODIPine Besylate 5 MG Tab PO SCH (09:00)
[2024-04-06] MEDS ORDERED: Sodium Zirconium Cyclosilicate 10 GM Packet PO SCH (09:00)
[2024-04-06] MEDS ORDERED: Heparin Sodium 5000 Units/ML 1ML MDV SC SCH (09:00)
[2024-04-06] MEDS ORDERED: Furosemide 40 MG Tab PO SCH (09:00)
--- NOTE | 2024-04-06 09:41 | NUR ---
PROVIDER CONTACT THIS RN SPEAKING W DR. MCDERMOTT REGARDING NEPHROLOGY CONSULT. PROVIDER UPDATED ON CHEMISTRY LAB RESULTS. PROVIDER NOT WANTING TO CONSULT NEPHROLOGY AT THIS TIME. R AND D LAB TECHNICIAN WHITNEY NOTIFIED.
[2024-04-06 09:55] LABS: Bun/Creatinine Ratio 33.1 (12.0-20.0); Calcium, Blood 9.5 mg/dL (8.5-10.1); Creatinine, Blood 3.02 mg/dL (0.40-1.00); Potassium, Blood 6.1 mmol/L (3.5-5.5)
[2024-04-06 11:10] VITALS: BP 148/68
--- NOTE | 2024-04-06 11:32 | NUR ---
MET WITH FAROOQ TO DISCUSS GOALS OF CARE. WE DISCUSSED HER CODE STATUS. SHE REPORTED THAT SHE WANTS MEDICAL INTERVENTIONS, SHE WANTS TO GET BETTER AND MAKE MUCH RECOVERY SHE CAN. WE DISCUSSED CPR. SHE DOES NOT WANT TO HAVE CHEST COMPRESSIONS OR INTUBATION. SHE IS CURRENTLY ON A BIPAP AND SHE IS COMFORTALE WITH THAT. WE DISCUSSED HER PREVIOUS STRUGGLES WITH EATING AND SHE REPORTED THAT SHE WOULD NOT WANT ANOTHER PEG TUBE, ORAL INTAKE IS VERY IMPORTANT TO HER. SHE DOES NOT WANT A BARIUM STUDY OR THICKENED LIQUIDS. PATIENT WAS CONCERNED WITH HER HUSBANDS RESPONSE TO CHANGING CODE STATUS. I CALLED HIM AND DISCUSSED WITH HIM. HE EXPRESSED THAT HE IS WORRIED SHE IS GIVING UP HOPE BUT WANTS TO RESPECT HER WISHES. WE DISCUSSED THE PROCESS OF CPR AND INTUBATION AND WHAT THE RECOVERY WOULD ENTAIL. HE AGREES THAT THIS WOULD NOT BE APPROPRIATE. I EXPLAINED THAT WE WOULD DO EVERYTHING TO TREAT HER UP UNTIL THE POINT OF HER HEART STOPPING, THEN WE WOULD LET HER PASS PEACFULLY AND WOUULD NOT PREFORM HEROIC MEASURES TO RESUSCITATE HER. WE DISCUSSED HER DESIRE TO EAT, HE REPORTS THAT HER MAINTINING THE ABLILITY TO EAT IS VERY IMPORTANT TO HER. RELAYED THIS INFORMATION TO DR. MCDERMOTT AND BEDSIDE RN.
--- NOTE | 2024-04-06 12:50 | NUR ---
PROVIDER CONTACT DR. MCDERMOTT CALLED AND NOTIFIED OF THE 1200 POTASSIUM LEVEL OF 5.8. PROVIDER W NO ADDITIONAL ORDERS JUST NSTRUCTING THIS RN THE GIVE THE PT HER SLIDING SCALE INSULIN FOR HER 1130 COVERAGE.
[2024-04-06] MEDS ORDERED: Insulin Regular 100 Unit/ML 1ML Dose IV ONE (13:00)
[2024-04-06] MEDS ORDERED: Albuterol 2.5 MG/3 ML VIAL INH PRN (15:20)
[2024-04-06 15:42] VITALS: BP 157/81
--- NOTE | 2024-04-06 17:47 | NUR ---
DAY SHIFT SUMMARY PT HAS BEEN ALERT THIS SHIFT BUT HAS BEEN CONFUSED AND IMPULSIVE AT TIMES. PT HAS DENIED ANY PAIN OR NAUSEA THIS SHIFT. PT HAS MAINTAINED SPO2 >92% ON BIPAP MOST OF THE SHIFT BUT TOLERATES BREAKS W 10L NC FOR MEALS. PT'S MONITOR SHOWING SR/ST 90'S-100'S THIS SHIFT. BP MODERATELY ELEVATED THIS SHIFT BUT STABLE. PT AFEBRILE. PT OK'D TO HAVE PO INTAKE BY PROVIDER AND HAS TOLERATED THIS WELL. MEDS GIVEN CRUSHED IN APPLESAUCE. PT NEEDING ORAL CARE FOLLOWING MEALS SHE HAS RESIDUAL FOOD INSIDE HER MOUTH/CHEEKS AFTER EATING. CBG'S ELEVATED THIS SHIFT >300 WHICH HAVE BEEN TREATED AT SAME TIME ELEVATED POTASSIUM'S W IV INSULIN. PT'S CODE STATUS CHANGED TO DNR STATUS THIS SHIFT. CALOS PATENT AND DRAINING CLEAR YELLOW URINE THIS SHIFT. WILL REPORT TO ONCOMING RN.
[2024-04-06 20:30] VITALS: BP 154/84
[2024-04-06] MEDS ORDERED: Insulin Glargine-Yfgn 100 Unit/mL 3 ML SYR SC SCH (21:00)
[2024-04-06 23:37] VITALS: BP 171/80
[2024-04-07 03:48] VITALS: BP 179/81
[2024-04-07 03:48] LABS: BASOPHILS ABSOLUTE AUTO 0.01 K/mm3 (0.00-0.23); BASOPHILS PERCENT AUTO 0 % (0-2); EOSINOPHILS PERCENT AUTO 0 % (0-6); Hematocrit 27.7 % (33.0-51.0); IMMATURE GRAN ABSOLUTE AUTO 0.04 K/mm3 (0.00-0.10); IMMATURE GRAN PERCENT AUTO 0 % (0-1); LYMPHOCYTES ABSOLUTE AUTO 0.29 K/mm3 (0.84-5.20); LYMPHOCYTES PERCENT AUTO 3 % (21-46); MONOCYTES ABSOLUTE AUTO 0.19 K/mm3 (0.16-1.47); MONOCYTES PERCENT AUTO 2 % (4-13); Mean Corpuscular HGB 26.7 pg (26.0-34.0); Mean Corpuscular HGB Conc 28.9 g/dL (31.5-36.5); Mean Corpuscular Volume 92 fL (80-100); Mean Platelet Volume 11.4 fL (9.1-12.4); NEUTROPHILS ABSOLUTE AUTO 10.43 K/mm3 (1.96-9.15); NEUTROPHILS PERCENT AUTO 95 % (41-73); Platelet Count 282 K/mm3 (150-400); RDW Coefficient Variation 15.9 % (11.7-14.2); RDW Standard Deviation 53.7 fL (35.1-46.3); White Blood Cell Count 10.96 K/mm3 (4.00-11.30)
[2024-04-07 04:14] LABS: Albumin, Blood 2.9 g/dL (3.4-5.0); Anion Gap 10 mmol/L (3-11); Blood Urea Nitrogen 107 mg/dL (8-24); Bun/Creatinine Ratio 31.4 (12.0-20.0); CO2, Blood 22 mmol/L (21-32); Calcium, Blood 9.4 mg/dL (8.5-10.1); Chloride, Blood 116 mmol/L (98-108); Creatinine, Blood 3.41 mg/dL (0.40-1.00); Glomerular Filtration Rate 15 (60-); Glucose, Blood 433 mg/dL (70-99); Phosphorus, Blood 4.1 mg/dL (2.5-4.9); Potassium, Blood 6.1 mmol/L (3.5-5.5); Sodium, Blood 142 mmol/L (136-145)
[2024-04-07 04:23] VITALS: BP 171/73
[2024-04-07] MEDS ORDERED: Calcium Gluconate 10% 1,000 MG in NS 50 ML IV ONE (04:55)
[2024-04-07] MEDS ORDERED: Furosemide 10 MG / ML 2ML Vial IV ONE (05:00)
[2024-04-07] MEDS ORDERED: Insulin Human Lispro 100 Units/ML 3ML Syringe SC ONE ×2 (05:00→13:10)
[2024-04-07] MEDS ORDERED: Insulin Regular 100 UNIT/ML 10ML Vial IV ONE (05:15)
--- NOTE | 2024-04-07 06:12 | NUR ---
ONLY CHANGES FROM ASSUMPTION/ PREVIOUS SHIFT IS AM K+ 6.1 CALL TO DOCTORS, IV SQ CALCIUM GLUCONATE, AND 1 X LASIX 20mg. INCREASED GLUCOSE AND BLOOD PRESSURE OK TO GIVE 0900 HYDRALAZINE NOW. AMBER BMP AT 0900. PATIENT 600 URINE FOR THIS RN. PRIOR TO LASIX ADMINISTRATION. DENEIS CHEST PAIN PRESSURE OR SOB. SPO2 >9% 8-10L NC, INCREASED WOB ON NC, BUT IMPROVED AFTER USING BIPAP TO THE MID TEENS. PLAN OF CARE CONTINUES.
[2024-04-07 07:59] VITALS: BP 160/133; BP 160/33
[2024-04-07 09:27] LABS: Bun/Creatinine Ratio 31.2 (12.0-20.0); Calcium, Blood 9.8 mg/dL (8.5-10.1); Creatinine, Blood 3.3 mg/dL (0.40-1.00); Potassium, Blood 5.5 mmol/L (3.5-5.5)
[2024-04-07 11:13] VITALS: BP 159/138
[2024-04-07] MEDS ORDERED: Furosemide 10 MG/ML 4ML Vial IV SCH (15:00)
[2024-04-07 15:11] VITALS: BP 156/68
--- NOTE | 2024-04-07 16:13 | NUR ---
PT BLOOD SUGAR AT 413 AT 1605, NOTIFIED, SAYS TO CONTINUE COURSE WITH HIGH SLIDING SCALE ACHS AND LONG ACTING.
[2024-04-07] MEDS ORDERED: Insulin Human Lispro 100 Units/ML 3ML Syringe SC SCH (16:30)
--- NOTE | 2024-04-07 18:05 | NUR ---
SHIFT SUMMARY NEURO: A/OX3, KNOWS YEAR, UNSURE OF DATE. OBEYS COMMANDS, MAKES NEEDS KNOWN. CARDIO: BLOOD PRESSURE REMAINED ELEVATED, MD NOTIFIED, ORDERED LASIX. HR IN 90'S. LABS SHOWED HYPERKALEMIA. RESP: O2 REMAINED ABOVE 90%, OXYGEN TITRATED DOWN TO 5L FROM 8L. PT HAS BIPAP AT BEDSIDE, PREVIOUS SETTINGS 10/5 40%, BUT PT DID NOT USE BIPAP DURING THIS SHIFT. GI/: CHRONIC LIVE IN PLACE AND DRAINING TO GRAVITY. PT IN BRIEFS, NO BM REPORTED. PT CONTINUES TO ASPIRATE ON MEALS, CONTINUES TO REFUSE SPEECH THERAPY. ENDOCRINE: PT CBG CONTINUED TO ELEVATE, WAS TRANSITIONED FROM A MEDIUM SLIDING SCALE TO A HIGH SLIDING SCALE PER MD. RENAL: KIDNEY FUNCTION DECREASED, NEPHROLOGY CONSULT CALLED IN YESTERDAY.
[2024-04-07 19:19] VITALS: BP 158/93
--- NOTE | 2024-04-07 19:30 | NUR ---
ASSUMPTION OF CARE: PATIENT CONTINUES TO BE HYPERTENSIVE AND HYPERGLYCEMIC. PATIENT STILL ABLE TO MAKE NEEDS KNOWN, CALL LIGHT WITHIN REACH. MENATATION AND ORIENTATION SAME PREVIOUS. CURRENTLY RESTING ON BIPAP WILL DELAY MED DELAY DUE TO POTENTIAL FOR ASPIRATION WHILE SLEEPY. PATIENT LUNGS SOUNDS IMPROVED WITH DAY INCREASED LASIX, PATIENT LIVE PATENT AND DRAINING TO GRAIVTY. REPOSITIONED. RR 20'S , RR IMPROVED ON BIPAP AND WILL ATTEMPT TO STAY IN THE LOW 20'S VERSUS HIGH 20'S TO 30 ON NC. DENIES PAIN OF ANY KIND NO ACUTE CONCERNS AT THIS TIME PLAN OF CARE CONTINUES.
[2024-04-08] VITALS (7 sets, daily range): BP systolic 136–166; BP diastolic 58–110
[2024-04-08 04:26] LABS: Hematocrit 27.3 % (33.0-51.0); Hemoglobin 7.7 g/dL (11.5-16.0); Mean Corpuscular HGB 26.7 pg (26.0-34.0); Mean Corpuscular HGB Conc 28.2 g/dL (31.5-36.5); Mean Corpuscular Volume 95 fL (80-100); Mean Platelet Volume 11.8 fL (9.1-12.4); Platelet Count 252 K/mm3 (150-400); RDW Coefficient Variation 16.1 % (11.7-14.2); RDW Standard Deviation 55.7 fL (35.1-46.3); Red Blood Cell Count 2.88 M/mm3 (3.80-5.20)
[2024-04-08 05:27] LABS: Albumin, Blood 2.9 g/dL (3.4-5.0); Anion Gap 15 mmol/L (3-11); Blood Urea Nitrogen 105 mg/dL (8-24); Bun/Creatinine Ratio 27.8 (12.0-20.0); CO2, Blood 19 mmol/L (21-32); Calcium, Blood 9.6 mg/dL (8.5-10.1); Chloride, Blood 113 mmol/L (98-108); Creatinine, Blood 3.78 mg/dL (0.40-1.00); Ferritin, Serum 185 ng/mL (8-252); Glomerular Filtration Rate 13 (60-); Glucose, Blood 397 mg/dL (70-99); Iron Serum 55 ug/dL (50-170); Percent Saturation 24.8 % (15.0-50.0); Phosphorus, Blood 3.6 mg/dL (2.5-4.9); Potassium, Blood 4.6 mmol/L (3.5-5.5); Sodium, Blood 142 mmol/L (136-145); Total Iron Binding Capacity 222 ug/dL (250-450)
--- NOTE | 2024-04-08 06:43 | NUR ---
EOS: PATIENT HAVING INCREASED DIFFICULTY WITH ORAL INTAKE, AND STARTED TO REFUSED BIPAP MORE FREQUENTLY THAN PREVIOUSLY. URINE OUTPUT OF 300 FOR THE SHIFT. INCREASED COUGHING THROUGH THE NIGHT. EDCUATED ON BIPAP NEED. TOLERATED MORE AFTER EDUCATION. Hgb 7.7 INFORMING DAY RN DUE TO RESULT SO CLOSE TO SHIFT CHANGE. PATIENT ASYMPTOMATIC REMAINED SLIGHLTY HYPERTENSIVE FOR THE SHIFT. AFEBRILE. PLAN OF CARE CONTINUES.
[2024-04-08] MEDS ORDERED: MethylPREDNISolone Sod Succ 40 MG VIAL IV SCH (09:00)
[2024-04-08] MEDS ORDERED: Polyethylene Glycol 3350 17 gm PO SCH (09:00)
[2024-04-08] MEDS ORDERED: Sod Ferric Gluc Complx/Sucrose 125 MG in NS 100 ML IV SCH (09:39)
[2024-04-08] MEDS ORDERED: Insulin Glargine-Yfgn 100 Unit/mL 3 ML SYR SC SCH (10:00)
[2024-04-08] MEDS ORDERED: Ergocalciferol 50000 Intn'l Units PO SCH (12:35)
[2024-04-08] MEDS ORDERED: HydrALAZINE HCl 50 MG Tab PO SCH (14:00)
[2024-04-08 14:11] LABS: PO2 Arterial 59.3 mmHg (80-100); pH Blood Arterial 7.33 (7.35-7.45)
--- NOTE | 2024-04-08 18:54 | NUR ---
SHIFT SUMMARY NO ACUTE EVENTS AND NO CHANGES THIS SHIFT. PT CURRENTLY ON 4L OF AND SATTING ABOVE 90%. BP ELEVATED IN 150'S. PT SLEPT T/O MOST OF SHIFT.
--- NOTE | 2024-04-09 00:22 | NUR ---
PT REQUESTED TO TAKE A BREAK FROM BIPAP AND PUT NC BACK ON. NO S/S OF SOB OR RESPIRATORY DISTRESS NOTED.
[2024-04-09 04:27] LABS: Hematocrit 26.2 % (33.0-51.0); Hemoglobin 7.8 g/dL (11.5-16.0); Mean Corpuscular HGB 26.9 pg (26.0-34.0); Mean Corpuscular HGB Conc 29.8 g/dL (31.5-36.5); Mean Platelet Volume 12.1 fL (9.1-12.4); Platelet Count 239 K/mm3 (150-400); RDW Standard Deviation 52.3 fL (35.1-46.3); White Blood Cell Count 10.12 K/mm3 (4.00-11.30)
[2024-04-09 04:34] LABS: Mean Corpuscular Volume 90 fL (80-100)
[2024-04-09 04:58] LABS: Albumin, Blood 2.6 g/dL (3.4-5.0); Anion Gap 12 mmol/L (3-11); Blood Urea Nitrogen 110 mg/dL (8-24); Bun/Creatinine Ratio 27.8 (12.0-20.0); CO2, Blood 21 mmol/L (21-32); Calcium, Blood 9.2 mg/dL (8.5-10.1); Chloride, Blood 112 mmol/L (98-108); Creatinine, Blood 3.96 mg/dL (0.40-1.00); Glomerular Filtration Rate 12 (60-); Glucose, Blood 398 mg/dL (70-99); Phosphorus, Blood 3.4 mg/dL (2.5-4.9); Potassium, Blood 4.6 mmol/L (3.5-5.5); Sodium, Blood 140 mmol/L (136-145)
[2024-04-09 05:59] VITALS: BP 123/99
--- NOTE | 2024-04-09 06:46 | NUR ---
PT A/O x4 WITH OCCASIONAL CONFUSION. STAYED ON BIPAP APPROX. 4 HOURS. SWITCHED BACK TO NC AND PT REMAINED W/ NO RESPIRATORY DISTRESS NOTED THE REMAINDER OF SHIFT. REMOVED NC IN HER SLEEP TWICE AND IMMEDIATELY DESAT. REPLACED NC AND PT RECOVERED. DENIED PAIN OF ANY SORT. LIVE PATENT THROUGHOUT SHIFT.
[2024-04-09 07:49] VITALS: BP 142/90
--- NOTE | 2024-04-09 12:51 | NUR ---
PT'S CBG WAS 378 TREATED PER EMAR AND NOTIFIED DR KHAN. CHANGED DIET TO CONSISENT CARB RENAL WELL. NO NEW ORDERS FROM DR KHAN.
[2024-04-09 13:04] VITALS: BP 164/59
[2024-04-09 16:07] VITALS: BP 165/67
--- NOTE | 2024-04-09 16:10 | NUR ---
PT HAS BEEN AO AND COOPERATIVE OF CARE. PT IS BEDREST AND GETS REPOSTIIONED EVERY COUPLE HOUR. PT IS ABLE TO MAKE ALL NEEDS KNOWN. CBGs CONTINUE TO RUN HIGH DR KHAN IS AWARE. MEETING WITH PALLIATIVE CARE OCCURRED SEE PALLIATIVE CARE NOTE. FAMILY WAITING TO MEET WITH DR VORA TO DISCUSS DIALYSIS. CALL LIGHT WITHIN REACH WILL CONINTUE TO MONITOR.
--- NOTE | 2024-04-09 16:11 | NUR ---
METWITH PATIENT AND HER . DAUGHTER WAS IVAN WAS AT BEDSIDE WELL. WE DISCUSSED DIALYSIS (PROVIDER WILL COME IN LATER THIS AFTERNOON TO REVIEW). WE SPOKE ABOUT TRANSPORTATION. KATHYA () IS WORRIED ABOUT TRANSPORTING HER THREE TIMES A WEEK BUT BELIEVES HE HAS A SOLUTION. THE COST OF [facility] TRANSPORT IS TOO EXPENSIVE TO BE A VIABLE OPTION. HE IS ALSO CONCERNED ABOUT THE RAMP IN FRONT OF THEIR HOUSE BECOMING ICY AND NOT BEING ABLE TO GET THE CHAIR DOWN. WE DISCUSSED HOSPICE AND EOL CARE. FAROOQ IS WANTING TO TRY DIALYSIS AND SEE HOW IT AFFECTS HER. WE DISCUSSED THAT IF SHE IS NOT TOLORATING IT WELL SHE CAN CHOOSE TO TRANSITION TO HOSPICE AND SWITCH FOCUS OF CARE AT ANY TIME. FAMILY IS AGREEABLE.
[2024-04-09 19:59] VITALS: BP 159/72
[2024-04-09 20:22] VITALS: BP 120/70
[2024-04-10] VITALS (7 sets, daily range): BP systolic 167–186; BP diastolic 77–118
--- NOTE | 2024-04-10 11:34 | NUR ---
CALL PLACED TO MD: THIS RN CALLED MD TO NOTIFY OF HIGH BLOOD GLUCOSE LEVEL.
[2024-04-10] MEDS ORDERED: Insulin Glargine-Yfgn 100 Unit/mL 3 ML SYR SC ONE (11:40)
[2024-04-10 12:11] LABS: Albumin, Blood 2.6 g/dL (3.4-5.0); Anion Gap 13 mmol/L (3-11); Blood Urea Nitrogen 113 mg/dL (8-24); Bun/Creatinine Ratio 27.5 (12.0-20.0); CO2, Blood 20 mmol/L (21-32); Calcium, Blood 8.7 mg/dL (8.5-10.1); Chloride, Blood 112 mmol/L (98-108); Creatinine, Blood 4.11 mg/dL (0.40-1.00); Glomerular Filtration Rate 12 (60-); Glucose, Blood 381 mg/dL (70-99); Phosphorus, Blood 3.4 mg/dL (2.5-4.9); Potassium, Blood 4.9 mmol/L (3.5-5.5); Sodium, Blood 140 mmol/L (136-145)
--- NOTE | 2024-04-10 14:46 | NUR ---
CALL TO MD: CALL WAS PLACED TO MD REGARDING PATIENTS ELEVATED BLOOD PRESSURE. NOTIFIED THAT AFTER SCHEDULED MEDICATION BLOOD PRESSURE CONTINUES TO BE ELEVATED.
[2024-04-10] MEDS ORDERED: CloNIDine 0.1 MG Tab PO PRN (15:40)
--- NOTE | 2024-04-10 16:55 | NUR ---
SHIFT SUMMARY: PATIENT IS ALERT AND ORIENTED X4 AND ABLE TO ANSWER ALL ORIENTATION QUESTIONS. SPEECH IS MUMBLED AND PATIENT LOOSES TRAIN OF THOUGHT WHEN TALKING. IS SATTING >92% ON 2 LITERS VIA NASAL CANNULA. ON TELE SHOWING NORMAL SINUS RYTHM RATE IN 80'S. NEEDED COVERAGE FOR HIGH BLOOD SUGAR AND CHANGES IN INSULIN WERE MADE PER EMAR. PATIENT HAD HIGH BLOOD PRESSURES THROUGHOUT SHIFT AND MD WAS NOTIFIED ABOUT THAT AND EMAR WAS UPDATED. PATIENT TOOK MEDICATIONS WHOLE WITH PUDDING WITHOUT ISSUES. GOT A BEDBATH TODAY AND WAS ABLE TO GET SOME REST. NO EVENTS THROUGHOUT SHIFT, WILL CONTINUE TO MONITOR UNTIL HANDOFF REPORT TO ONCOMING AUTOMOTIVE PAINTER RN.
[2024-04-10] MEDS ORDERED: Insulin Glargine-Yfgn 100 Unit/mL 3 ML SYR SC SCH (21:00)
[2024-04-11 04:47] VITALS: BP 187/82
[2024-04-11 05:01] LABS: PO2 Arterial 61.5 mmHg (80-100)
[2024-04-11 05:47] LABS: Albumin, Blood 2.6 g/dL (3.4-5.0); Anion Gap 13 mmol/L (3-11); Blood Urea Nitrogen 112 mg/dL (8-24); Bun/Creatinine Ratio 28.4 (12.0-20.0); CO2, Blood 19 mmol/L (21-32); Calcium, Blood 9.2 mg/dL (8.5-10.1); Chloride, Blood 114 mmol/L (98-108); Creatinine, Blood 3.94 mg/dL (0.40-1.00); Glomerular Filtration Rate 12 (60-); Glucose, Blood 269 mg/dL (70-99); Phosphorus, Blood 3.6 mg/dL (2.5-4.9); Potassium, Blood 5.1 mmol/L (3.5-5.5); Sodium, Blood 141 mmol/L (136-145)
[2024-04-11 06:52] VITALS: BP 180/74
--- NOTE | 2024-04-11 06:53 | NUR ---
PT A/O x4, SOFT SPOKEN, SLIGHTLY MUMBLED (2/2 CVA). O2 NC 2L THROUGHOUT SHIFT, SAT >90%. NO RESPIRATORY DISTRESS NOTED. DENIES PAIN OR DISCOMFORT. 0400 BP ELEVATED; MD AWARE. ASYMPTOMATIC. RECHECKED BP, STILL ELEVATED BUT SLIGHTLY BETTER. LIVE PATENT. NO BM THIS SHIFT.
[2024-04-11 07:45] VITALS: BP 182/69
[2024-04-11 11:36] VITALS: BP 183/87
--- NOTE | 2024-04-11 14:28 | NUR ---
HANDOFF REPORT: REPORT GIVEN TO CHRIS KIRK. PATIENT IS MEDICAL WITHOUT TELE STATUS. PATIENT IS ALERT AND OREINTED X4 AND ABLE TO ANSWER ALL ORIENTATION QUESTIONS. HAS A MUMBLED SPEECH AND IS IMPULSIVE/CHILD LIKE. HAS A RIGHT SIDED FACIAL DEFICIT DUE TO PREVIOUS CVA. IS SATTING >92% ON 2 LITERS VIA NASAL CANNULA, USES BIPAP AT NOC. BLOOD PRESSURES HAVE BEEN ELEVATED AND WAS GIVEN MEDICATIONS PER EMAR PARAMETERS. GOT COVERAGE FOR BLOOD SUGARS THROUGHOUT SHIFT. TOOK MEDICATIONS WHOLE WITH PUDDING WITHOUT PROBLEMS.
[2024-04-11 16:27] VITALS: BP 173/77
--- NOTE | 2024-04-11 17:54 | NUR ---
ARRIVAL TO MEDICAL FLOOR. LIVE IN PLACE DRAINING FREELY. POWERGLIDE TO LEFT UPPER ARM. A/OX4. PLEASANT MOOD. 2 RN SKIN CHECK. CALL LIGHT IN REACH. ABLE TO MAKE NEEDS KNOWN. CARES ONGOING.
--- NOTE | 2024-04-11 17:59 | NUR ---
PT TRANSFERRED TO 304 REPORT GIVEN TO SUDHA KIRK. PT TRANSFERRED VIA BED ALL BELONGINGS SENT WITH THE PT. KATHYA WAS CALLED AND MADE AWARE OF THE TRANSFER
[2024-04-11 19:17] VITALS: BP 157/86
[2024-04-12 02:00] VITALS: BP 190/93
[2024-04-12 03:49] VITALS: BP 146/132
[2024-04-12 04:07] VITALS: BP 178/105
[2024-04-12 04:36] LABS: BASOPHILS ABSOLUTE AUTO 0.02 K/mm3 (0.00-0.23); BASOPHILS PERCENT AUTO 0 % (0-2); EOSINOPHILS ABSOLUTE AUTO 0.58 K/mm3 (0.00-0.68); EOSINOPHILS PERCENT AUTO 4 % (0-6); Hemoglobin 8.6 g/dL (11.5-16.0); IMMATURE GRAN ABSOLUTE AUTO 0.17 K/mm3 (0.00-0.10); IMMATURE GRAN PERCENT AUTO 1 % (0-1); LYMPHOCYTES ABSOLUTE AUTO 1.15 K/mm3 (0.84-5.20); LYMPHOCYTES PERCENT AUTO 9 % (21-46); MONOCYTES ABSOLUTE AUTO 0.79 K/mm3 (0.16-1.47); MONOCYTES PERCENT AUTO 6 % (4-13); Mean Corpuscular HGB 26.5 pg (26.0-34.0); Mean Corpuscular HGB Conc 29.7 g/dL (31.5-36.5); Mean Corpuscular Volume 89 fL (80-100); NEUTROPHILS ABSOLUTE AUTO 10.34 K/mm3 (1.96-9.15); NEUTROPHILS PERCENT AUTO 79 % (41-73); Platelet Count 318 K/mm3 (150-400); RDW Coefficient Variation 16.4 % (11.7-14.2); RDW Standard Deviation 52.5 fL (35.1-46.3); Red Blood Cell Count 3.25 M/mm3 (3.80-5.20); White Blood Cell Count 13.05 K/mm3 (4.00-11.30)
[2024-04-12 04:48] LABS: Albumin, Blood 2.5 g/dL (3.4-5.0); Anion Gap 12 mmol/L (3-11); Blood Urea Nitrogen 108 mg/dL (8-24); Bun/Creatinine Ratio 26.4 (12.0-20.0); CO2, Blood 22 mmol/L (21-32); Chloride, Blood 114 mmol/L (98-108); Creatinine, Blood 4.09 mg/dL (0.40-1.00); Glomerular Filtration Rate 12 (60-); Glucose, Blood 157 mg/dL (70-99); Phosphorus, Blood 4.3 mg/dL (2.5-4.9); Sodium, Blood 143 mmol/L (136-145)
--- NOTE | 2024-04-12 04:58 | NUR ---
TRANSITION SOCIAL WORKER SUMMARY: PT A&O X 3-4. MAKES NEEDS KNOWN TO STAFF AND USES CALL LIGHT APPROPRIATELY. ADMIT DX: ACUTE ON CHRONIC RESPIRATORY FAILURE WITH HYPOXIA. HX OF HTN. OVER HOSPITAL COURSE PT HAS DEVELOPED PULMONARY EDEMA AND HYPERKALEMIA. PT HAS HX OF CVA WITH RIGHT SIDE WEAKNESS / FACIAL DEFICIT. PT HAS LIVE CATH DRAINING YELLOW URINE WITH SEDIMENT. NEW ORDERS FOR COZAAR, LOKELMA AND RETACRIT TO START ON DAY SHIFT 04/12/24. ELEVATED BP OF 190/93, PRN CATAPRES GIVEN PER EMAR ORDERS AT APPROX 0215. DENIES CP/CHEST PRESSURE/ LUTZ, PAIN. F/U BP: 178/105. PT REMAINS ASYMPTOMATIC. RESTING IN BED. DR. GONZÁLES NOTIFED; AWAITING ORDERS AFTER HE REVIEWS THE CHART. CARES CONTINUE ORDERED.
[2024-04-12] MEDS ORDERED: CloNIDine 0.1 MG Tab PO PRN (05:10)
[2024-04-12 07:05] VITALS: BP 186/85
[2024-04-12] MEDS ORDERED: Sodium Zirconium Cyclosilicate 10 GM Packet PO SCH (09:00)
[2024-04-12] MEDS ORDERED: Losartan Potassium 50 MG Tab PO SCH (09:00)
[2024-04-12] MEDS ORDERED: NS 250 ML IV PRN (09:05)
[2024-04-12 13:46] VITALS: BP 189/83
[2024-04-12 15:01] VITALS: BP 187/83
[2024-04-12] MEDS ORDERED: Epoetin Alfa-EPBX 10,000 Unit/ML 1ML Vial SC SCH (16:00)
[2024-04-12] MEDS ORDERED: ALBU2.5V5 INH (16:06)
[2024-04-12] MEDS ORDERED: CATAPRES0.1 MG PO (16:09)
[2024-04-12] MEDS ORDERED: HYDR100 PO (16:16)
[2024-04-12] MEDS ORDERED: MIRALAX17 GM PO (16:17)
[2024-04-12] MEDS ORDERED: LOKELMA10 GM PO (16:17)
[2024-04-12] MEDS ORDERED: ERGO50000 PO (16:18)
[2024-04-12] MEDS ORDERED: CloNIDine HCL 0.2 MG Patch TOP SCH (17:00)
--- NOTE | 2024-04-12 17:24 | NUR ---
DISCHARGE NOTE PT A&OX4. PT HAS HX OF CVA AND HAS R SIDE DEFICITS. PT ADMITTED DUE TO ACUTE ON CHRONIC RESPIRATORY FAILURE WITH HYPOXIA. PT DISCHARGED ON 2L O2 WITH N/C. WENT OVER DISCHARGE MEDS AND INSTRUCTIONS WITH PT. PT WAS KRISSY LIFTED TO WHEELCHAIR. PT WAS ESCORTED BY WHEELCHAIR WITH TRANSPORT. MEDS WERE FAXED TO PREFFERED PHARMACY. PT WENT HOME WITH BELONGINGS. PT WENT WITH CHRONIC LIVE.
[2024-04-13] MEDS ORDERED: Losartan Potassium 50 MG Tab PO SCH (09:00)
== END 2024-04-12 17:18 | disposition home health service (06) | DRG 291 ==
LOC: ER 14:37 → PCU 17:28 → MEDS 04-11 17:54
PROVIDERS: Family Medicine; Hospitalist; Internal Medicine; Internal Medicine Nephrology; Student in an Organized Health Care Education/Training Program; ADMIT Student in an Organized Health Care Education/Training Program
PROC: 5A09357 Assistance with Respiratory Ventilation, Less than 24 Consecutive Hours, Continuous Positive Airway Pressure (ICD-10-PCS; principal; 2024-04-05)
PROC: 5A0935A Assistance with Respiratory Ventilation, Less than 24 Consecutive Hours, High Flow/Velocity Cannula (ICD-10-PCS; 2024-04-06)
PROC: 4A133R1 Monitoring of Arterial Saturation, Peripheral, Percutaneous Approach (ICD-10-PCS; 2024-04-08)
DX: I13.2 Hypertensive heart and chronic kidney disease with heart failure and with stage 5 chronic kidney disease, or end stage renal disease (principal); I50.33 Acute on chronic diastolic (congestive) heart failure; J96.21 Acute and chronic respiratory failure with hypoxia; J96.22 Acute and chronic respiratory failure with hypercapnia; I69.351 Hemiplegia and hemiparesis following cerebral infarction affecting right dominant side; N18.5 Chronic kidney disease, stage 5; J44.1 Chronic obstructive pulmonary disease with (acute) exacerbation; E11.22 Type 2 diabetes mellitus with diabetic chronic kidney disease; E78.5 Hyperlipidemia, unspecified; G43.909 Migraine, unspecified, not intractable, without status migrainosus; I48.91 Unspecified atrial fibrillation; R13.10 Dysphagia, unspecified; E87.5 Hyperkalemia; D63.1 Anemia in chronic kidney disease; D50.9 Iron deficiency anemia, unspecified; K25.9 Gastric ulcer, unspecified as acute or chronic, without hemorrhage or perforation; Z91.011 Allergy to milk products; Z79.4 Long term (current) use of insulin; Z79.899 Other long term (current) drug therapy
CPT/HCPCS: 36415; 36600; 51702; 71045; 80048; 80053; 80069; 81001; 82306; 82728; 82803; 82947; 83036; 83540; 83550; 83735; 83880; 83970; 84132; 84484; 85025; 85027; 87077; 87086; 87147; 87186; 93005; 93010; 94640; 94644; 94660; 94664; 94760; 94762; 96374-59; 96375-59; 99285-25; A9270; C1751; J0612; J1644; J1815; J1940; J2916; J2919; J7050; J7799

== ENCOUNTER → 2024-05-06 | Outpatient (CLI) | payer OTHER ==
[~2024-05-06] MED LIST changes: +ALBU2.5V5 INH; +CATAPRES0.1 MG PO; +DIPH25 PO; +ERGO50000 PO; +HYDR100 PO; +LOKELMA10 GM PO; +MIRALAX17 GM PO
[2024-05-06 18:16] LABS: Source, Urine Straight Cath
[2024-05-06 19:11] LABS: Appearance, Urine Cloudy (Clear); Bilirubin, Urine Neg (Neg); Blood, Urine 1+ (Neg); Glucose Qualitative, Urine 1+ (Neg); Ketones, Urine Neg (Neg); Leukocyte Esterase, Urine 3+ (Neg); Nitrite, Urine Neg (Neg); Protein, Urine 4+ (Neg); Specific Gravity, Urine 1.015 (1.003-1.022); Urobilinogen, Urine NORM (Normal)
[2024-05-06 19:24] LABS: Amorphous Light (0-Heavy); Color, Urine Pale Yellow (P-Yellow)
[2024-05-06 19:25] LABS: Bacteria Many /hpf; Squamous Epithelial Cells Few /hpf (Few); White Blood Cells, Urine 25-50 /hpf (0-5)
== END | disposition home or self-care (01) ==
LOC: LAB SHORT 18:11 → LAB 18:11
PROVIDERS: Physician Assistant
DX: R82.90 Unspecified abnormal findings in urine (principal); R11.2 Nausea with vomiting, unspecified
CPT/HCPCS: 81001; 87077; 87086; 87186

== ENCOUNTER → 2024-06-10 | Outpatient (CLI) | payer OTHER ==
[2024-06-10 13:42] LABS: BASOPHILS ABSOLUTE AUTO 0.04 K/mm3 (0.00-0.23); BASOPHILS PERCENT AUTO 1 % (0-2); EOSINOPHILS ABSOLUTE AUTO 0.43 K/mm3 (0.00-0.68); EOSINOPHILS PERCENT AUTO 5 % (0-6); Hematocrit 31.2 % (33.0-51.0); Hemoglobin 9.4 g/dL (11.5-16.0); IMMATURE GRAN ABSOLUTE AUTO 0.03 K/mm3 (0.00-0.10); IMMATURE GRAN PERCENT AUTO 0 % (0-1); LYMPHOCYTES ABSOLUTE AUTO 1.51 K/mm3 (0.84-5.20); LYMPHOCYTES PERCENT AUTO 18 % (21-46); MONOCYTES ABSOLUTE AUTO 0.56 K/mm3 (0.16-1.47); MONOCYTES PERCENT AUTO 7 % (4-13); Mean Corpuscular HGB 27.4 pg (26.0-34.0); Mean Corpuscular HGB Conc 30.1 g/dL (31.5-36.5); Mean Corpuscular Volume 91 fL (80-100); Mean Platelet Volume 11.2 fL (9.1-12.4); NEUTROPHILS ABSOLUTE AUTO 5.91 K/mm3 (1.96-9.15); NEUTROPHILS PERCENT AUTO 70 % (41-73); Platelet Count 299 K/mm3 (150-400); RDW Coefficient Variation 16.9 % (11.7-14.2); RDW Standard Deviation 56.5 fL (35.1-46.3); Red Blood Cell Count 3.43 M/mm3 (3.80-5.20); White Blood Cell Count 8.48 K/mm3 (4.00-11.30)
[2024-06-10 16:41] LABS: CHOL/HDL RATIO 3.6; Cholesterol 123 mg/dL (50-200); HDL Cholesterol 34 mg/dL (>39); LDL/HDL RATIO 1.6; Low Density Lipoprotein Chol 55 mg/dL (0-110); Triglycerides 169 mg/dL (30-160); Very Low Density Lipoprot Chol 33 mg/dL (6-32)
[2024-06-12 09:53] LABS: HIV 1,2 COMBO ANTIGEN/ANTIBODY Negative (Negative)
== END ==
LOC: LAB SHORT 12:14 → LAB 12:14
PROVIDERS: Physician Assistant
DX: Z11.4 Encounter for screening for human immunodeficiency virus [HIV] (principal); Z51.81 Encounter for therapeutic drug level monitoring; Z79.899 Other long term (current) drug therapy
CPT/HCPCS: 80061; 82306; 84443; 85025; 87389

== ENCOUNTER 2024-12-05 11:43 | Inpatient (IN) | payer OTHER ==
[2024-12-05] VITALS (21 sets, daily range): BP systolic 106–140; BP diastolic 62–97
[~2024-12-05] VITALS: Ht 165.1 cm; Wt 68.2 kg
[2024-12-05] MEDS ORDERED: NS 1,000 ML IV SCH ×2 (12:50→15:00)
[2024-12-05 14:17] LABS: BASOPHILS ABSOLUTE AUTO 0.04 K/mm3 (0.00-0.23); BASOPHILS PERCENT AUTO 0 % (0-2); EOSINOPHILS ABSOLUTE AUTO 0.13 K/mm3 (0.00-0.68); EOSINOPHILS PERCENT AUTO 0 % (0-6); Hematocrit 21.2 % (33.0-51.0); Hemoglobin 6.4 g/dL (11.5-16.0); IMMATURE GRAN ABSOLUTE AUTO 0.28 K/mm3 (0.00-0.10); IMMATURE GRAN PERCENT AUTO 1 % (0-1); LYMPHOCYTES ABSOLUTE AUTO 0.51 K/mm3 (0.84-5.20); LYMPHOCYTES PERCENT AUTO 2 % (21-46); MONOCYTES ABSOLUTE AUTO 0.54 K/mm3 (0.16-1.47); MONOCYTES PERCENT AUTO 2 % (4-13); Mean Corpuscular HGB Conc 30.2 g/dL (31.5-36.5); Mean Corpuscular Volume 97 fL (80-100); NEUTROPHILS ABSOLUTE AUTO 27.60 K/mm3 (1.96-9.15); NEUTROPHILS PERCENT AUTO 95 % (41-73); NRBC ABSOLUTE 0.02 K/mm3 (0.00-0.02); NRBC Auto 0.1 /100 WBC (0.0-0.2); Platelet Count 354 K/mm3 (150-400); RDW Coefficient Variation 14.6 % (11.7-14.2); RDW Standard Deviation 51.6 fL (35.1-46.3)
[2024-12-05] MEDS ORDERED: CefTRIAXone Sodium 1,000 MG in NS 100 ML IV ONE (14:40)
[2024-12-05 14:49] LABS: Alanine Aminotransfer (ALT/SGP 16.0 U/L (12-78); Albumin, Blood 1.9 g/dL (3.4-5.0); Albumin/Globulin Ratio 0.4 (0.8-1.8); Anion Gap 26.0 mmol/L (3-11); Aspartate Aminotrans (AST/SGOT 10.0 U/L (12-37); Bilirubin, Total 0.4 mg/dL (0.1-1.0); Blood Urea Nitrogen 263.0 mg/dL (8-24); CO2, Blood 8.0 mmol/L (21-32); Calcium, Blood 5.5 mg/dL (8.5-10.1); Chloride, Blood 108.0 mmol/L (98-108); Creatinine, Blood 17.5 mg/dL (0.40-1.00); Globulin, Blood 4.8 g/dL (2.2-4.0); Glucose, Blood 79.0 mg/dL (70-99); Potassium, Blood 6.6 mmol/L (3.5-5.5); Sodium, Blood 135.0 mmol/L (136-145); Total Protein, Blood 6.7 g/dL (6.4-8.2)
[2024-12-05] MEDS ORDERED: Sodium Bicarb 8.4% Inj 150 MEQ in Dextrose 5% 1,000 ML IV SCH (15:15)
[2024-12-05 15:30] LABS: IMMATURE RETIC FRACTION 17.4 % (2.3-16.0); RETIC HGB EQUIVALENT 29.1 pg (28.20-36.60); RETICULOCYTE ABSOLUTE 0.1012 M/mm3 (0.0200-0.1100); RETICULOCYTE COUNT PERCENT 4.46 % (0.50-2.50)
[2024-12-05] MEDS ORDERED: Albuterol 2.5 MG/3 ML VIAL INH ONE (17:00)
[2024-12-05] MEDS ORDERED: Sodium Bicarb 8.4% 1 MEQ/ML 50 ML Vial IV ONE (17:00)
[2024-12-05] MEDS ORDERED: Insulin Regular 100 Unit/ML 1ML Dose IV ONE (17:00)
[2024-12-05] MEDS ORDERED: Ondansetron HCl 2 MG / ML 2ML Vial IV PRN (17:05)
--- NOTE | 2024-12-05 18:40 | NUR ---
PT ARRIVAL... PT ARRIVED TO THE UNIT AT 181, PT IS IN SR IN THE 80'S WITH PROX AFIB IN THE SAME RATE. PT'S BP IS STABLE WITH MAPS>65. PT'S CBG WAS 111. SHE IS ON RA WITH O2 SATS>95%. L/S COARSE IN THE BASES, PT'S RR IN THE HIGH 20'S. PT'S LIVE IS PATENT AND DRAINING SCANT URINE TO GRAVITY. PT IS ABLE TO ANSWER SIMPLE "YES/NO" QUESTIONS AND FOLLOWS COMMANDS. PT IS NOTED TO HAVE A LARGE RED EXCORIATED AREA TO HER COCCYX THAT BLANCHES PICTURES TAKEN. PT IS ALSO NOTED TO HAVE SCRATCHES ALL OVER HER BODY, YEAST RASH NOTED UNDER BOTH BREASTS.
[2024-12-05 19:54] LABS: Albumin, Blood 1.5 g/dL (3.4-5.0); Anion Gap 25 mmol/L (3-11); Blood Urea Nitrogen 234 mg/dL (8-24); CO2, Blood 7 mmol/L (21-32); Calcium, Blood 5.5 mg/dL (8.5-10.1); Chloride, Blood 113 mmol/L (98-108); Creatinine, Blood 14.90 mg/dL (0.40-1.00); Glucose, Blood 156 mg/dL (70-99); Phosphorus, Blood 5.6 mg/dL (2.5-4.9); Potassium, Blood 5.9 mmol/L (3.5-5.5); Sodium, Blood 139 mmol/L (136-145)
[2024-12-05] MEDS ORDERED: Heparin Sodium,Porcine 5,000 UNIT/0.5 ML SDV SC SCH (21:00)
[2024-12-05 21:14] LABS: Anti-Xa UFH, PHA Monitoring <0.10 IU/mL; Prothrombin Time Results 13.4 Sec (9.7-11.5)
[2024-12-05] MEDS ORDERED: Heparin Sodium,Porcine/0.5 NS 500 ML IV SCH (21:25)
[2024-12-05 21:32] LABS: Albumin, Blood 1.7 g/dL (3.4-5.0); Anion Gap 26 mmol/L (3-11); Blood Urea Nitrogen 251 mg/dL (8-24); CO2, Blood 11 mmol/L (21-32); Calcium, Blood 5.5 mg/dL (8.5-10.1); Chloride, Blood 110 mmol/L (98-108); Creatinine, Blood 15.50 mg/dL (0.40-1.00); Glucose, Blood 89 mg/dL (70-99); Potassium, Blood 5.7 mmol/L (3.5-5.5); Sodium, Blood 141 mmol/L (136-145)
[2024-12-05 21:33] LABS: Phosphorus, Blood 11.7 mg/dL (2.5-4.9)
[2024-12-05 21:37] LABS: Source, Urine Clean Catch
[2024-12-05 21:41] LABS: Bilirubin, Urine Neg (Neg); Glucose Qualitative, Urine Neg (Neg); Ketones, Urine Neg (Neg); Leukocyte Esterase, Urine 3+ (Neg); Protein, Urine 4+ (Neg); Specific Gravity, Urine 1.015 (1.003-1.022); Urobilinogen, Urine NORM (Normal)
[2024-12-05 22:01] LABS: Color, Urine Pale Yellow (P-Yellow)
[2024-12-05 22:02] LABS: Red Blood Cells, Urine 25-50 /hpf (0-2); White Blood Cells, Urine 50-100 /hpf (0-5)
[2024-12-05] MEDS ORDERED: Heparin Sodium 5000 Units/ML 1ML MDV IV ONE (23:00)
[2024-12-06] VITALS (72 sets, daily range): BP systolic 98–152; BP diastolic 64–99
[2024-12-06] MEDS ORDERED: Dextrose 50% 50 ML Vial IV PRN (03:05)
[2024-12-06 04:03] LABS: BASOPHILS ABSOLUTE AUTO 0.03 K/mm3 (0.00-0.23); BASOPHILS PERCENT AUTO 0 % (0-2); EOSINOPHILS ABSOLUTE AUTO 0.09 K/mm3 (0.00-0.68); EOSINOPHILS PERCENT AUTO 0 % (0-6); Hematocrit 22.0 % (33.0-51.0); Hemoglobin 7.1 g/dL (11.5-16.0); IMMATURE GRAN ABSOLUTE AUTO 0.33 K/mm3 (0.00-0.10); IMMATURE GRAN PERCENT AUTO 1 % (0-1); LYMPHOCYTES ABSOLUTE AUTO 0.48 K/mm3 (0.84-5.20); LYMPHOCYTES PERCENT AUTO 2 % (21-46); MONOCYTES ABSOLUTE AUTO 0.56 K/mm3 (0.16-1.47); MONOCYTES PERCENT AUTO 2 % (4-13); Mean Corpuscular HGB Conc 32.3 g/dL (31.5-36.5); NEUTROPHILS ABSOLUTE AUTO 27.56 K/mm3 (1.96-9.15); NEUTROPHILS PERCENT AUTO 95 % (41-73); NRBC ABSOLUTE 0.03 K/mm3 (0.00-0.02); NRBC Auto 0.1 /100 WBC (0.0-0.2); Platelet Count 300 K/mm3 (150-400); RDW Coefficient Variation 14.6 % (11.7-14.2); RDW Standard Deviation 48.0 fL (35.1-46.3)
[2024-12-06 04:05] LABS: Mean Corpuscular Volume 90 fL (80-100)
[2024-12-06 04:29] LABS: Ferritin, Serum 649 ng/mL (8-252); Magnesium, Blood 1.4 mg/dL (1.6-2.4); Total Iron Binding Capacity 105 ug/dL (250-450)
[2024-12-06 04:54] LABS: Albumin, Blood 1.6 g/dL (3.4-5.0); Blood Urea Nitrogen 155 mg/dL (8-24); CO2, Blood 16 mmol/L (21-32); Calcium, Blood 5.8 mg/dL (8.5-10.1); Chloride, Blood 105 mmol/L (98-108); Creatinine, Blood 10.30 mg/dL (0.40-1.00); Glucose, Blood 149 mg/dL (70-99); Sodium, Blood 139 mmol/L (136-145)
[2024-12-06 04:55] LABS: Anion Gap 22 mmol/L (3-11); Phosphorus, Blood 7.0 mg/dL (2.5-4.9); Potassium, Blood 3.6 mmol/L (3.5-5.5)
--- NOTE | 2024-12-06 06:32 | NUR ---
SHIFT SUMMARY: PT ADMITTED CLOSE TO SHIFT CHANGE YESTERDAY. PT ORIENTED TO SELF, LETHARGIC, MUMBLED SPEECH (DEFICIT FROM PRIOR CVA). PT HAS R FACIAL DROOP AT BASELINE AND NOTABLE RLE AND RUE WEAKNESS/DEFICITS. PT CAN ANSWER SIMPLE QUESTIONS, TAKES HER A MINUTE TO GATHER HER THOUGHTS, BUT COMMUNICATES APPROPRIATELY. PT IS NOT A GREAT HISTORIAN, REQUIRES RE-ORIENTING TO TIME. SHE KNOWS SHE IS IN THE HOSPITAL AND TOWN. PT AFEBRILE T/O THE NIGHT. COOL LE AND FINGERS. DR MC CAME IN AROUND 1945 AND PLACED DIALYSIS CATH TO LEFT FEMORAL VEIN. PORT HELD IN PLACE BY SUTURES. MULTIPLE DRESSINGS APPLIED T/O NIGHT DUE TO BLEEDING AT SITE. SAND BAG IN PLACE AT THIS TIME. PT RECEIVED DIALYSIS TX SHORTLY AFTER PORT PLACEMENT, TOLERATED WELL. PER MUSIC EDUCATOR, NO FLUID REMOVED DURING DIALYSIS. PT RECEIVED ONE UNIT OF PRBCS. PT VS REMAINS STABLE T/O. SBP 100-130S. HR 90S-100S. PT HAS HX OF AFIB AND CONVERTS BETWEEN AFIB AND SINUS. ASYMPTOMATIC. DENIES CHEST PAIN OR SOB. PT ON RA. SATS >95%. LUNGS COARSE/DIM. ABD SOFT, BT ACTIVE X4. DENIED N/V. PT HAD BM DURING SHIFT. LOOSE. LINEN CHANGE AND RAMONE CARE PROVIDED. PT IS VERY TENDER IN RAMONE AREA DUE TO REDDENED/EXCORIATED LABIA. PT HAS CHRONIC LIVE. CURRENT LIVE WAS PLACED 12/05/24 IN ED. LIVE REMAINS PATENT AND DRAINING TO GRAVITY. VERY MINIMAL OUTPUT. PIV TO RAC AND LFA.
[2024-12-06] MEDS ORDERED: Magnesium Sulf 2 GM/Water 50ML 50 ML IV SCH (06:45)
[2024-12-06] MEDS ORDERED: Dose Adjust by Pharmacy XX STA ×2 (08:26→15:28)
[2024-12-06] MEDS ORDERED: CefTRIAXone Sodium 1,000 MG in NS 100 ML IV SCH (09:00)
[2024-12-06] MEDS ORDERED: Lactobacil 2-S.Thermo-Bifido 1 1 Cap PO SCH (09:00)
[2024-12-06] MEDS ORDERED: Heparin Sodium,Porcine 5,000 UNIT/0.5 ML SDV SC SCH (09:00)
--- NOTE | 2024-12-06 11:05 | NUR ---
MULTIPLE CALLS THIS AM TO PROVIDERS R/T PT'S BLOOD GLUCOSE. RECEIVED INCREASE IN D10 DRIP, 1 AMP D50 AND A DOSE OF SOLU-CORTEF, CURRENTLY AT 129. PT IS ALERT AND ANSWERING WITH NODS. SHE IS CONGESTED AND UNABLE TO COUGH WELL, ORDER OBTAINED FOR NT SUCTION, PT OKAYED. ORAL CARE DONE, MUCH TO HER DISLIKE. PT WITH MULTIPLE SCRATCH HAMILTON OVER LEFT SIDE OF HER BODY FROM SELF INFLICTED SCRATCHING.
--- NOTE | 2024-12-06 16:17 | NUR ---
DIALYSIS COMPLETE, PT BEGAN VOMITING, POSSIBLY ASPIRATING. ASKED TO COUGH AND CLEAR HER LUNGS, WEAK COUGH. ORAL SUCTIONING, SHE PUSHES AWAY MADELEINE CHOI GIVEN WITH GOOD RELIEF.
--- NOTE | 2024-12-06 18:48 | NUR ---
BLOOD SUGAR AT 167. D10 DOWN TO 50ML/HR DISCUSSED WITH , IF NECESSARY TO CONTINUE TO TITRATE TO OFF COMPLETELY T/O THE NIGHT.
[2024-12-06] MEDS ORDERED: Miconazole Nitrate 2% 85 GM PWD TOP SCH (21:00)
[2024-12-07] VITALS (51 sets, daily range): BP systolic 104–159; BP diastolic 55–98
[2024-12-07 04:35] LABS: BASOPHILS ABSOLUTE AUTO 0.04 K/mm3 (0.00-0.23); BASOPHILS PERCENT AUTO 0 % (0-2); EOSINOPHILS ABSOLUTE AUTO 0.00 K/mm3 (0.00-0.68); EOSINOPHILS PERCENT AUTO 0 % (0-6); Hematocrit 22.9 % (33.0-51.0); Hemoglobin 7.2 g/dL (11.5-16.0); IMMATURE GRAN ABSOLUTE AUTO 0.33 K/mm3 (0.00-0.10); IMMATURE GRAN PERCENT AUTO 1 % (0-1); LYMPHOCYTES ABSOLUTE AUTO 0.33 K/mm3 (0.84-5.20); LYMPHOCYTES PERCENT AUTO 1 % (21-46); MONOCYTES ABSOLUTE AUTO 0.55 K/mm3 (0.16-1.47); MONOCYTES PERCENT AUTO 2 % (4-13); Mean Corpuscular HGB Conc 31.4 g/dL (31.5-36.5); Mean Corpuscular Volume 92 fL (80-100); NEUTROPHILS ABSOLUTE AUTO 27.03 K/mm3 (1.96-9.15); NEUTROPHILS PERCENT AUTO 96 % (41-73); NRBC ABSOLUTE 0.02 K/mm3 (0.00-0.02); NRBC Auto 0.1 /100 WBC (0.0-0.2); Platelet Count 279 K/mm3 (150-400); RDW Coefficient Variation 15.0 % (11.7-14.2); RDW Standard Deviation 49.6 fL (35.1-46.3)
[2024-12-07 05:13] LABS: Alanine Aminotransfer (ALT/SGP 13.0 U/L (12-78); Albumin, Blood 1.5 g/dL (3.4-5.0); Albumin/Globulin Ratio 0.3 (0.8-1.8); Anion Gap 17.0 mmol/L (3-11); Aspartate Aminotrans (AST/SGOT 21.0 U/L (12-37); Bilirubin, Total 0.5 mg/dL (0.1-1.0); Blood Urea Nitrogen 79.0 mg/dL (8-24); CO2, Blood 20.0 mmol/L (21-32); Calcium, Blood 6.3 mg/dL (8.5-10.1); Chloride, Blood 101.0 mmol/L (98-108); Creatinine, Blood 6.19 mg/dL (0.40-1.00); Globulin, Blood 4.6 g/dL (2.2-4.0); Glucose, Blood 194.0 mg/dL (70-99); Potassium, Blood 3.6 mmol/L (3.5-5.5); Sodium, Blood 134.0 mmol/L (136-145); Total Protein, Blood 6.1 g/dL (6.4-8.2)
--- NOTE | 2024-12-07 05:21 | NUR ---
SHIFT SUMMARY: NO ACUTE CHANGES T/O THE NIGHT. AT START OF SHIFT, PT WAS VERY LETHARGIC-POST DIALYSIS TX. PT WAS AROUSABLE TO VOICE AND ABLE TO ANSWER QUESTIONS AND ENGAGE IN CONVERSATION APPROPRIATELY. PT CAN FOLLOW SOME COMMANDS, UNABLE TO MOVE R SIDE INDEPENDENTLY (R SIDED DEFICITS AT BASELINE). EYES EQUAL AND REACTIVE. AFEBRILE T/O THE NIGHT. VS REMAIN STABLE. SBP 120-140S. HR 80S-LOW 100S. SINUS W/INTERMITTENT PVCS. LUNGS REMAIN COARSE AT UPPER LOBES, DIMINISHED CLEAR BASES. PT ON RA. SATS>90%. PT WAS PLACED ON 2L O2 VIA NC FOR A FEW HOURS THIS SHIFT AFTER AN EPISODE OF EMESIS. SATS NOTED TO DROP FROM >95% TO 87%. PT DENIED SOB OR DISCOMFORT. PER PT, SHE USES 2L O2 VIA NC AT BASELINE, IN HER HOME, NEEDED. PT WAS GIVEN ZOFRAN PER EMAR ORDERS AFTER EMESIS EPISODE W/PT REPORTING RELIEF IN NAUSEA SOON AFTER. ABD REMAINS SOFT. BT ACTIVE X4. PT HAD BM THIS SHIFT. ATTENDS, RAMONE CARE, AND LINEN CHANGE PROVIDED. STOOL REMAINS LOOSE. MEPLEX PLACED ON PTS COCCYX DUE TO SMALL OPEN AREAS (APPEAR TO BE MOISTURE RELATED) NOTED. LIVE IN PLACE, DRAINING TO GRAVITY. PT HAS SAMY POWERGLIDE, PIV IN LFA.
[2024-12-07] MEDS ORDERED: Clarify Drug Order XX ONE (05:40)
[2024-12-07] MEDS ORDERED: Lidocaine 2% Viscous Soln 20 ML,Nystatin 100,000 Unit/ml Susp 20 ML,Mag Hydrox/Al Hydro... MT PRN (11:05)
--- NOTE | 2024-12-07 14:42 | NUR ---
PT'S MENTATION HAS IMPROVED SOMEWHAT SINCE ADMISSION YESTERDAY. SHE AND HER ARE CONSIDERING PERITONEAL DIALYSIS, PT IS UNABLE TO PARTICIPATE IN DIALYSIS AT THE [facility]ENT[facility]. SHE IS BEDBOUND WITH L SIDED WEAKNESS D/T HX OF CVA'S. A PT MUST BE ABLE TO TOLERATE "CHAIR TIME" FOR DIALYSIS, AND THIS IS UNLIKELY. NEPHROLOGY IS FOLLOWING. PLAN TO FOLLOW UP WITH PT AND HER TO REVIEW CODE STATUS.
[2024-12-07 18:26] LABS: HEPATITIS B SURFACE ANTIBODY <3.10 IU/L
[2024-12-07 18:35] LABS: HBV CORE ANTIBODIES,TOTAL Negative (Negative)
--- NOTE | 2024-12-07 18:38 | NUR ---
Patient remains in ICU for continued management of electrolyte derangement. Patient's glucose levels were stable overnight and remained stable in morning, Dr Vuong is okay with glucose monitoring be extended to four hour intervals. Patient will remain NPO with anticipation of her mental status to improve to be more participatory with nutrition plan and informed consent or refusal of GI access. Patient noted to have trouble coughing and clearing secretions today requiring NT suctioning x1 by RT. Dialysis completed today as ordered.
[2024-12-07 18:58] LABS: HBV CORE ANTIBODIES,TOTAL Negative (Negative)
[2024-12-07 19:49] LABS: HEPATITIS A ANTIBODY, IGM Negative (Negative); HEPATITIS C AB CIA INTERP Negative (Negative); HEPATITIS C ANTIBODY CIA INDEX 0.02 IV
[2024-12-08] VITALS (41 sets, daily range): BP systolic 114–155; BP diastolic 62–117
[2024-12-08 03:41] LABS: BASOPHILS ABSOLUTE AUTO 0.04 K/mm3 (0.00-0.23); BASOPHILS PERCENT AUTO 0 % (0-2); EOSINOPHILS ABSOLUTE AUTO 0.01 K/mm3 (0.00-0.68); EOSINOPHILS PERCENT AUTO 0 % (0-6); Hematocrit 22.4 % (33.0-51.0); Hemoglobin 7.0 g/dL (11.5-16.0); IMMATURE GRAN ABSOLUTE AUTO 0.57 K/mm3 (0.00-0.10); IMMATURE GRAN PERCENT AUTO 2 % (0-1); LYMPHOCYTES ABSOLUTE AUTO 1.41 K/mm3 (0.84-5.20); LYMPHOCYTES PERCENT AUTO 5 % (21-46); MONOCYTES ABSOLUTE AUTO 1.12 K/mm3 (0.16-1.47); MONOCYTES PERCENT AUTO 4 % (4-13); Mean Corpuscular HGB Conc 31.3 g/dL (31.5-36.5); Mean Corpuscular Volume 95 fL (80-100); NEUTROPHILS ABSOLUTE AUTO 25.71 K/mm3 (1.96-9.15); NEUTROPHILS PERCENT AUTO 89 % (41-73); NRBC ABSOLUTE 0.06 K/mm3 (0.00-0.02); NRBC Auto 0.2 /100 WBC (0.0-0.2); Platelet Count 253 K/mm3 (150-400); RDW Coefficient Variation 15.1 % (11.7-14.2); RDW Standard Deviation 52.1 fL (35.1-46.3)
[2024-12-08 04:04] LABS: Alanine Aminotransfer (ALT/SGP 15.0 U/L (12-78); Albumin, Blood 1.6 g/dL (3.4-5.0); Albumin/Globulin Ratio 0.4 (0.8-1.8); Anion Gap 16.0 mmol/L (3-11); Aspartate Aminotrans (AST/SGOT 25.0 U/L (12-37); Bilirubin, Total 0.5 mg/dL (0.1-1.0); Blood Urea Nitrogen 40.0 mg/dL (8-24); CO2, Blood 22.0 mmol/L (21-32); Calcium, Blood 6.9 mg/dL (8.5-10.1); Chloride, Blood 102.0 mmol/L (98-108); Creatinine, Blood 3.75 mg/dL (0.40-1.00); Globulin, Blood 4.4 g/dL (2.2-4.0); Glucose, Blood 118.0 mg/dL (70-99); Potassium, Blood 4.5 mmol/L (3.5-5.5); Sodium, Blood 135.0 mmol/L (136-145); Total Protein, Blood 6.0 g/dL (6.4-8.2)
[2024-12-08] MEDS ORDERED: Clarify Drug Order XX ONE (06:20)
[2024-12-08 07:04] LABS: QUANTIFERON MITOGEN MINUS NIL 0.47 IU/mL; QUANTIFERON NIL 0.02 IU/mL; QUANTIFERON PLUS TB1 MINUS NIL 0.00 IU/mL (<=0.34); QUANTIFERON PLUS TB2 MINUS NIL 0.01 IU/mL (<=0.34)
--- NOTE | 2024-12-08 07:12 | NUR ---
PT ALERT AND ORIENTED. SPEECH IS SOFT AND SOMETIMES MUMBLED . VITALS WNL. LIVE IN PLACE DRAINING YELLOW OUTPUT. ON 2 L N.C WHICH IS BASELINE. NO C/O PAIN OR CHEST PAIN. Q2 TURNS. CALL BURNETT WITHIN REACH.
[2024-12-08] MEDS ORDERED: Epoetin Alfa-EPBX 10,000 Unit/ML 1ML Vial SC SCH (09:00)
--- NOTE | 2024-12-08 11:44 | NUR ---
ASSUMPTION OF CARE: PATIENT ABLE TO USE CALL LIGHT AND SUCTION CATHETER NEEDED, HOWEVER, ALERT AND ORIENTED X 3-4, APPEARS VERY FATIGUED. AWAKES EASILY FROM SLEEP. ON 2L VIA NC, ATTEMPTED TO DECREASE TO 1L AND SPO2 <88% LUNG SOUNDS ARE COASE WITH RHONCHI T/O EDUCATED ON COUGH AND DEEP BREATHING. PATIENT DENIES CHEST PAIN PRESSURE OR SOB AT REST. CURRENLTY ON CONTINOUS MONITOR, APPEARS SR 80'S TRIALYSIS L FEMORAL SLIGHTLY BLOODY UNDER DRESSING. PATIENT DENIED REPOSITION Q4 CBG, AND Q2 REPOSITIONS. CURRENLTY INFUSING HEPARIN AT 14. APPEARS TO BE SLIGHTLY IMPROVING. NO ACUTE SIGN OF CARDIAC OR RESPIRATORY DISTRESS.
--- NOTE | 2024-12-08 13:12 | NUR ---
CARE HAND OFF BEDSIDE REPORT GIVEN TO REAGAN LOWRY FOR CONTINUED PT CARE. SAFETY, COMFORT, HYGIENE ADDRESSED. ASSESSMENT, STATUS, AND CURRENT PLAN OF CARE REVIEWED.
--- NOTE | 2024-12-08 20:05 | NUR ---
SHIFT NOTE: PATIENT THROUGHTOUT THE DAY IN THE NIGHT HAS BEEN ALERT ANSWERING MOSTLY YES NO, OR VERY SHORT SENTENCE ANSWERS. ABLE TO UNDERSTAND MORE THAN SHE CAN SPEAK, R SIDE DEFICIET KNOWN AND PRESENT, STILL HAS VERY MINOR STRENGTH IN R LEG BUT EVEN LESS STRENGTH IN RUE. PATIENT DENIES CHEST PAIN PRESSURE OR SOB AT REST, ON 2L CONTINUOUS HER BASELINE O2 FOR SPO2 >88%. PATIENT VSS, AFEBRILE. VERY LOOSE STOOL RECTAL PUCH PLACED. OLIGURIA, ONLY 175 SINCE ASSUMPTION AT 1200, HERE FOR ACUTE RENAL FAILURE, CATH CARE WITH EACH BM, WHICH HAS BEEN MULITPLE LOOSE AND WATERY, HENCE THE RECTAL POUCH. PATIENT HAS BEEN REPOSITIONED Q2 IF SHE LETS THIS RN. DECLINES ORAL CARE, AM MAKING PATIENT NPO AT 0000 SHE IS POTENTIAL FOR CATH PLACEMENT, DR. Clark PLACED AND CALLED CONSULT. DR. HEBERT PLACED SPEECH THERAPY CONSULT AND WANTED THIS RN TO ATTEMPT BEDSIDE SWALLOW, WHEN DINNER ARRIVED I ATTEMPTED TO FEED, HOWEVER, UNSURE IF ANY ASPIRATION PATIENT IS KNOWN FOR CHRONIC ASPIRATION. SPEECH WAS GONE BEFORE CONSULT PLACED. PATIENT HAS SOME COUGHING, BUT DOES NOT GET ANY SPUTUM UP, WEAK COUGH. SCD'S ROTATED 4 HOURS ON 2 HOURS OFF. NO ACUTE CONCERNS NOT ADDRESSED DURING DAY SHIFT. PLAN OF CARE CONTINUES
[2024-12-09] VITALS (37 sets, daily range): BP systolic 110–194; BP diastolic 60–173
[2024-12-09 03:36] LABS: BASOPHILS ABSOLUTE AUTO 0.04 K/mm3 (0.00-0.23); BASOPHILS PERCENT AUTO 0 % (0-2); EOSINOPHILS ABSOLUTE AUTO 0.14 K/mm3 (0.00-0.68); EOSINOPHILS PERCENT AUTO 1 % (0-6); Hematocrit 21.3 % (33.0-51.0); Hemoglobin 6.5 g/dL (11.5-16.0); IMMATURE GRAN ABSOLUTE AUTO 0.79 K/mm3 (0.00-0.10); IMMATURE GRAN PERCENT AUTO 3 % (0-1); LYMPHOCYTES ABSOLUTE AUTO 1.35 K/mm3 (0.84-5.20); LYMPHOCYTES PERCENT AUTO 5 % (21-46); MONOCYTES ABSOLUTE AUTO 1.02 K/mm3 (0.16-1.47); MONOCYTES PERCENT AUTO 4 % (4-13); Mean Corpuscular HGB Conc 30.5 g/dL (31.5-36.5); Mean Corpuscular Volume 96 fL (80-100); NEUTROPHILS ABSOLUTE AUTO 23.37 K/mm3 (1.96-9.15); NEUTROPHILS PERCENT AUTO 88 % (41-73); NRBC ABSOLUTE 0.02 K/mm3 (0.00-0.02); NRBC Auto 0.1 /100 WBC (0.0-0.2); Platelet Count 277 K/mm3 (150-400); RDW Coefficient Variation 14.8 % (11.7-14.2); RDW Standard Deviation 51.9 fL (35.1-46.3)
[2024-12-09 03:59] LABS: Alanine Aminotransfer (ALT/SGP 16.0 U/L (12-78); Albumin, Blood 1.7 g/dL (3.4-5.0); Albumin/Globulin Ratio 0.4 (0.8-1.8); Anion Gap 16.0 mmol/L (3-11); Aspartate Aminotrans (AST/SGOT 19.0 U/L (12-37); Bilirubin, Total 0.3 mg/dL (0.1-1.0); Blood Urea Nitrogen 48.0 mg/dL (8-24); CO2, Blood 21.0 mmol/L (21-32); Calcium, Blood 6.7 mg/dL (8.5-10.1); Chloride, Blood 104.0 mmol/L (98-108); Creatinine, Blood 4.7 mg/dL (0.40-1.00); Globulin, Blood 4.1 g/dL (2.2-4.0); Glucose, Blood 128.0 mg/dL (70-99); Phosphorus, Blood 4.7 mg/dL (2.5-4.9); Potassium, Blood 3.8 mmol/L (3.5-5.5); Sodium, Blood 137.0 mmol/L (136-145); Total Protein, Blood 5.8 g/dL (6.4-8.2)
[2024-12-09] MEDS ORDERED: Clarify Drug Order XX ONE (06:20)
--- NOTE | 2024-12-09 06:26 | NUR ---
TRANSFER OF CARE/SHIFT SUMMARY REPORT GIVEN BY THIS RN TO LINOTYPE MACHINIST APPRENTICE JORGE @ APPROX 0530 PT TAKEN OVER VIA BED @ APPROX 0620 / REAGAN PATEL AT BEDSIDE, SLID OVER BY MEDICAL STAFF TO PCU BED. PT IS A&O X 4, ABLE TO MAKE NEEDS KNOWN, RIGHT SIDED DEFICITS FROM HX OF CVA, GENERALIZED WEAKNESS, MUMBLED SPEECH, Q2 REPOSITIONING. SPO2 GREATER THAN 92% ON 2L 02 VIA NC, LUNGS SOUND COARSE T/O, RLL DIMINISHED, PT DENIES SOB WHILE AT REST, MODERATE AMOUNT OF SPUTUM. CONTINUOUS CARDIAC MONITORING, SINUS HR 80 S, BP STABLE WITH MAP GREATER THAN 65, CAP REFILL WNL, PULSES PRESENT T/O, PT DENIES CHEST P/P T/O THIS SHIFT, RIGHT SIDED DEPENDENT EDEMA. BOWEL TONES PRESENT IN ALL 4Q, PT DENIES FEELINGS OF NAUSEA, OR CONSTIPATION, MILD ABD DISTENTION, RECTAL BAG SECURE AT THIS TIME. LIVE CATH IS PATENT/DRAINING TO GRAVITY, LITTLE URINE OUTPUT/ PT RECEIVING HD, URINE PALE YELLOW IN COLOR. NOTIFIED DR. PERES OF [facility] OF 6.5 IN AM LABS, NO SIGNS OF BLEEDING NOTED BY THIS RN, PT VSS. BED LOWEST POSITION, CALL LIGHT IN REACH, AWAITING TO GIVE REPORT TO ONCOMING RN.
--- NOTE | 2024-12-09 07:19 | NUR ---
SHIFT SUMMARY: PT TRANSFERRED TO PCU 16 FROM ICU 14 AROUND 0625. PT WAS TRANSFERRED TO THE HOSPITAL BED USING A LIFT SHEET. GOT PT SITUATED IN BED, VITAL SIGNS IN THE COMPUTER. HEPARIN GTT INFUSING PER ORDER. LIVE CATHETER PLACED IN STAT LOCK. RECTAL POUCH C/D/I. BED IN LOWEST POSITION, CALL LIGHT WITHIN REACH. REPORT GIVEN TO ONCOMING NURSE.
--- NOTE | 2024-12-09 10:47 | NUR ---
am note this rn assumed care at 0700. vital signs stable tele sinus rhythm 70s. patient is alert and oriented x4. patient has right sided deficits from a previous stroke, and patient has mumbled speech. patient denies pain, chest pain/pressure or shortness of breath. see shift assessment for further detials. patient up in the chair via lift and to dialysis at 0900. patient received one unit of blood during dialysis. plan is up to date
[2024-12-09 14:15] LABS: Hematocrit 26.7 % (33.0-51.0); Hemoglobin 8.4 g/dL (11.5-16.0)
[2024-12-09 14:38] LABS: Anion Gap 12.0 mmol/L (3-11); Blood Urea Nitrogen 19.0 mg/dL (8-24); CO2, Blood 26.0 mmol/L (21-32); Calcium, Blood 7.4 mg/dL (8.5-10.1); Chloride, Blood 99.0 mmol/L (98-108); Creatinine, Blood 2.4 mg/dL (0.40-1.00); Glucose, Blood 187.0 mg/dL (70-99); Potassium, Blood 3.2 mmol/L (3.5-5.5); Sodium, Blood 134.0 mmol/L (136-145)
[2024-12-09] MEDS ORDERED: NS 250 ML IV ONE (16:08)
[2024-12-09] MEDS ORDERED: Heparin Sodium 1000 Units/ML 10ML MDV ONE (16:09)
[2024-12-09] MEDS ORDERED: Lidocaine 2%-Epineph 1:100000 20 ML MDV ONE (16:21)
--- NOTE | 2024-12-09 16:23 | NUR ---
update heparin drip off for permacath placement. patient left for procedure
[2024-12-09] MEDS ORDERED: NS 500 ML IV ONE (16:31)
[2024-12-09] MEDS ORDERED: Heparin Sodium 10,000 Units/ML 1ML MDV ONE (16:51)
--- NOTE | 2024-12-09 17:23 | NUR ---
RETURN TO ROOM patient return to room with right chest wall permacath in place.
--- NOTE | 2024-12-09 18:10 | NUR ---
shift summary vital signs remain stable. see previous notes. no acute changes. right femoral site pulled and manual pressure held for 5 minutes.
[2024-12-09] MEDS ORDERED: Potassium Chl 20MEQ/Water100ML 100 ML IV SCH (22:00)
[2024-12-10 03:03] VITALS: BP 160/79
[2024-12-10 05:22] LABS: BASOPHILS ABSOLUTE AUTO 0.04 K/mm3 (0.00-0.23); BASOPHILS PERCENT AUTO 0 % (0-2); EOSINOPHILS ABSOLUTE AUTO 0.19 K/mm3 (0.00-0.68); EOSINOPHILS PERCENT AUTO 1 % (0-6); Hematocrit 21.4 % (33.0-51.0); Hemoglobin 6.7 g/dL (11.5-16.0); IMMATURE GRAN ABSOLUTE AUTO 0.94 K/mm3 (0.00-0.10); IMMATURE GRAN PERCENT AUTO 4 % (0-1); LYMPHOCYTES ABSOLUTE AUTO 1.55 K/mm3 (0.84-5.20); LYMPHOCYTES PERCENT AUTO 6 % (21-46); MONOCYTES ABSOLUTE AUTO 1.41 K/mm3 (0.16-1.47); MONOCYTES PERCENT AUTO 6 % (4-13); Mean Corpuscular HGB Conc 31.3 g/dL (31.5-36.5); Mean Corpuscular Volume 93 fL (80-100); NEUTROPHILS ABSOLUTE AUTO 20.14 K/mm3 (1.96-9.15); NEUTROPHILS PERCENT AUTO 83 % (41-73); NRBC ABSOLUTE 0.03 K/mm3 (0.00-0.02); NRBC Auto 0.1 /100 WBC (0.0-0.2); Platelet Count 224 K/mm3 (150-400); RDW Coefficient Variation 16.4 % (11.7-14.2); RDW Standard Deviation 55.8 fL (35.1-46.3)
[2024-12-10 05:45] LABS: Alanine Aminotransfer (ALT/SGP 17.0 U/L (12-78); Albumin, Blood 1.7 g/dL (3.4-5.0); Albumin/Globulin Ratio 0.4 (0.8-1.8); Anion Gap 9.0 mmol/L (3-11); Aspartate Aminotrans (AST/SGOT 20.0 U/L (12-37); Bilirubin, Total 0.3 mg/dL (0.1-1.0); Blood Urea Nitrogen 24.0 mg/dL (8-24); CO2, Blood 27.0 mmol/L (21-32); Calcium, Blood 6.8 mg/dL (8.5-10.1); Chloride, Blood 104.0 mmol/L (98-108); Creatinine, Blood 3.05 mg/dL (0.40-1.00); Globulin, Blood 3.8 g/dL (2.2-4.0); Glucose, Blood 180.0 mg/dL (70-99); Phosphorus, Blood 2.9 mg/dL (2.5-4.9); Potassium, Blood 4.2 mmol/L (3.5-5.5); Sodium, Blood 136.0 mmol/L (136-145); Total Protein, Blood 5.5 g/dL (6.4-8.2)
--- NOTE | 2024-12-10 06:21 | NUR ---
shift summary pt A&o x4, calm, cooperative to care. pt has mummbled speech. hx of cva with r sided deficits. hr in the 80's, SR. she denies any cp/pressure, numb/tingling, sbp stable. spo2 at 98% on 4l via NC. pt's NC will fall out and pt will desat to the 60's, recovers quickly with o2 placement. pt has chronic huynh in place with oliguria. pt had permacath placed 12/10. femoral trialysis cath removed during dayshift, site with gauze and tegaderm in place, site with small amount of blood. pt denies any pain. pt with multiple liquid bms t/o night. pt resting in bed at this time call light in reach. will monitor pt.
[2024-12-10 07:25] VITALS: BP 136/76
--- NOTE | 2024-12-10 07:38 | NUR ---
AM NOTE PT ALERT, ORIENTED; CALM AND COOPERATIVE WITH CARE. PT RESTING IN BED, REPOSITIONED. DENIES PAIN, CHEST PAIN/PRESSURE, SOB, NAUSEA, DIZZINESS AND NUMB/TINGLING. TELE SINUS 80'S BP STABLE, EDEMA NOTED. SPO2 >90% ON 3L O2 VIA NC, LS COARSE T/O. ABD MILD DISTENDED, NONTENDER, +BT. OTHER VSS. LEFT GROIN SITE BLOOD NOTED, PER REPORT HAS NOT CHANGES, FIRM AROUND SITE. CALL LIGHT WITHIN REACH.
[2024-12-10 11:15] VITALS: BP 150/73
[2024-12-10 12:08] LABS: Hematocrit 21.5 % (33.0-51.0); Hemoglobin 6.6 g/dL (11.5-16.0)
[2024-12-10 16:57] VITALS: BP 148/79
--- NOTE | 2024-12-10 18:08 | NUR ---
SHIFT SUMMARY PT ALERT, ORIENTED; CALM AND COOPERATIVE WITH CARE. PT REPOSIONTED T/O SHIFT. PT DENIES PAIN, CHEST PAIN/PRESSURE, SOB, NAUSEA, DIZZINESS AND NUMB/TINGLING. TELE SINUS, BP STABLE. SPO2 >90% ON 2-3L O2 VIA NC, LS COARSE T/O SHIFT. ABD SOFT, NONTENDER, +BT. 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 PLANS FOR BARRIUM SWALLOW EVAL ON FRIDAY. OTHER VSS. CALL LIGHT WITHIN REACH. FAMILY AT BEDSIDE THIS EVENING.
[2024-12-10 19:22] VITALS: BP 146/67
[2024-12-10] MEDS ORDERED: NS 500 ML IV SCH (23:05)
[2024-12-10 23:44] VITALS: BP 149/67
[2024-12-11] VITALS (25 sets, daily range): BP systolic 97–154; BP diastolic 39–94
--- NOTE | 2024-12-11 01:26 | NUR ---
THIS RN WENT INTO PTS ROOM TO CHANGE HER. AT THIS TIME, BRUISING OF THE LEFT THIGH HAD INCREASED. NOTIFIED RESIDENT. ORDER PLACED FOR H&H. HGB CAME BACK AT 6.1, RESIDENT NOTIFIED. ORDER PLACED FOR UNIT OF PRBC'S, H&H AND BMP PLACED FOR AFTER INFUSION. BLOOD INFUSING AT THIS TIME. VSS. PT DENIES SOB, HR IN THE 80, SPO2 100% AND 3L VIA NC. WILL MONITOR PT.
[2024-12-11 05:02] LABS: BASOPHILS ABSOLUTE AUTO 0.06 K/mm3 (0.00-0.23); BASOPHILS PERCENT AUTO 0 % (0-2); EOSINOPHILS ABSOLUTE AUTO 0.54 K/mm3 (0.00-0.68); EOSINOPHILS PERCENT AUTO 2 % (0-6); Hematocrit 24.2 % (33.0-51.0); Hemoglobin 7.6 g/dL (11.5-16.0); IMMATURE GRAN ABSOLUTE AUTO 0.99 K/mm3 (0.00-0.10); IMMATURE GRAN PERCENT AUTO 4 % (0-1); LYMPHOCYTES ABSOLUTE AUTO 1.67 K/mm3 (0.84-5.20); LYMPHOCYTES PERCENT AUTO 7 % (21-46); MONOCYTES ABSOLUTE AUTO 1.43 K/mm3 (0.16-1.47); MONOCYTES PERCENT AUTO 6 % (4-13); Mean Corpuscular HGB Conc 31.4 g/dL (31.5-36.5); Mean Corpuscular Volume 96 fL (80-100); NEUTROPHILS ABSOLUTE AUTO 20.65 K/mm3 (1.96-9.15); NEUTROPHILS PERCENT AUTO 82 % (41-73); NRBC ABSOLUTE 0.03 K/mm3 (0.00-0.02); NRBC Auto 0.1 /100 WBC (0.0-0.2); Platelet Count 179 K/mm3 (150-400); RDW Coefficient Variation 15.4 % (11.7-14.2); RDW Standard Deviation 53.6 fL (35.1-46.3)
[2024-12-11 05:25] LABS: Magnesium, Blood 1.8 mg/dL (1.6-2.4)
[2024-12-11 05:26] LABS: Albumin, Blood 1.7 g/dL (3.4-5.0); Anion Gap 10 mmol/L (3-11); Blood Urea Nitrogen 30 mg/dL (8-24); CO2, Blood 26 mmol/L (21-32); Calcium, Blood 6.8 mg/dL (8.5-10.1); Chloride, Blood 103 mmol/L (98-108); Creatinine, Blood 3.96 mg/dL (0.40-1.00); Glucose, Blood 156 mg/dL (70-99); Phosphorus, Blood 3.4 mg/dL (2.5-4.9); Potassium, Blood 3.8 mmol/L (3.5-5.5); Sodium, Blood 135 mmol/L (136-145)
--- NOTE | 2024-12-11 06:21 | NUR ---
SHIFT SUMMARY PT A&O X4. SHE HAS MUMMBLED SPEECH. 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 HR IN THE 80'S-90'S, SR. SHE DENIES ANY CP/PRESSURE, NUMB/TINGLING. SBP IN THE 130'S. SPO2 >92% ON 2-3L VIA NC, SHE DENIES ANY SOB. SHE DOES HAVE A WET, CONGESTED COUGH, SHE HAS BEEN UNABLE TO COUGH ANYTHING UP. SHE HAS CHRONIC LIVE IN PLACE, DRAINING TO GRAVITY. PT TO RECIEVE DIALYSIS TODAY. PT HAD TRIALYSIS CATH REMOVED ON 12/09, SITE HAS HAD SOME FIRMNESS AND BRUISING THAT HAS EXPANDED DOWN HER LEG. OUTLINED SITE. DIRECTOR OF WOMEN'S SERVICES AND ICU DIRECTOR OF WOMEN'S SERVICES EXAMINED SITE WELL. DRESSING CHANGED. RESIDENT NOTIFIED, AN H&H WAS ORDERED. PTS HGB WAS 6.1, RESIDENT NOTIFIED PT RECIEVED 1 UNIT OF PRBC'S, PT TOLERATED WELL, HGB RECHECK SHOWED INCREASE OF HGB TO 7.6. PT HAS DOBHOFF IN RIGHT NARE. SHE IS RECEIVING TUBE FEEDINGS AT TH GOAL RATE OF 45ML/HR, PT TOLERATING WELL. PT RESTING IN BED AT THIS TIME CALL LIGHT IN REACH. WILL MONITOR PT AND REPORT TO ONCOMING RN.
--- NOTE | 2024-12-11 12:41 | NUR ---
PT WAS TAKEN TO HD @ APPROX 0830. SHE RETURNED FROM HD @ APPROX 1215. THEY REMOVED 1L DURING HD. PT IS A&Ox4, THOUGH SHE HAS MUMBLED SPEECH SO YOU HAVE TO LISTEN CLOSELY. SHE IS ON 2LNC W/O2 SATS > 2%. SHE HAS AN NGT TO THE L NARE @ 60CM THAT HAS NEPRO RUNNING @ 45ML/HR AND Q4 FWF OF 100ML. SHE HAS A CHRONIC LIVE DRAINING TO GRAVITY. SHE IS A x2 ASSIST FOR TURNS AND A LIFT TO GET OUT OF BED. HER LEFT LEG IS TENDER TO TOUCH, THE BRUISING HAS NOT EXPANDED ANY FURTHER TODAY. NO NEEDS OR CONCERNS NOTED @ THIS TIME. BED IN LOW POSITION, CALL LIGHT AND PERSONAL BELONGINGS IN REACH.
[2024-12-11 14:32] LABS: Hematocrit 24.8 % (33.0-51.0); Hemoglobin 7.9 g/dL (11.5-16.0)
[2024-12-12 00:31] VITALS: BP 120/64
[2024-12-12 03:35] VITALS: BP 147/61
[2024-12-12 06:29] LABS: Albumin, Blood 1.7 g/dL (3.4-5.0); Anion Gap 7 mmol/L (3-11); Blood Urea Nitrogen 19 mg/dL (8-24); CO2, Blood 31 mmol/L (21-32); Calcium, Blood 7.2 mg/dL (8.5-10.1); Chloride, Blood 98 mmol/L (98-108); Creatinine, Blood 2.41 mg/dL (0.40-1.00); Glucose, Blood 213 mg/dL (70-99); Phosphorus, Blood 3.4 mg/dL (2.5-4.9); Potassium, Blood 3.9 mmol/L (3.5-5.5); Sodium, Blood 132 mmol/L (136-145)
--- NOTE | 2024-12-12 06:32 | NUR ---
NO ACUTE EVENTS OVERNIGHT. VSS. PT SPO2 >92% ON 2L VIA NASAL CANNULA. PT TURNED EVERY 2 HOURS AND CHANGED EVERY 2 HOURS. PT TOLERATED TUBE FEEDINGS WELL. TUBE FEEDING REPLACED WITH NEW BOTTLE AND TUBING. PT IS PLEASANT. FOLLOWS COMMANDS. BED LOCKED AND IN LOWEST POSITION. HOB IS AT 30 DEGREES. CALL LIGHT WITHIN REACH.
[2024-12-12 07:52] VITALS: BP 143/64
[2024-12-12] MEDS ORDERED: Protein Supplement 30 ML UD PT SCH (09:00)
[2024-12-12] MEDS ORDERED: Insulin Human Lispro 100 Units/ML 3ML Syringe SC SCH ×2 (11:30→12:00)
[2024-12-12 11:32] VITALS: BP 97/79
[2024-12-12] MEDS ORDERED: Insulin Regular 100 UNIT/ML 10ML Vial SC SCH (12:00)
[2024-12-12 15:40] VITALS: BP 150/66
--- NOTE | 2024-12-12 17:03 | NUR ---
PT IS A&Ox4, HER SPEECH IS MUMBLED AND SOFT SO YOU HAVE TO LISTEN CAREFULLY WHEN SHE SPEAKS. SHE IS ON 2LNC W/O2 SATS > 92%. THERE IS A DHT TO HER LEFT NARE @ 60CM THAT SHE IS RECEIVING TUBE FEEDS AND MEDICINE THROUGH. SHE IS A x2 ASSIST IN BED W/TURNS AND A LIFT IF GETTING OUT OF BED. THERE ARE NO NEEDS OR CONCERNS NOTED @ THIS TIME. BED IN LOW POSITION, CALL LIGHT AND PERSONAL BELONGINGS IN REACH.
[2024-12-12 19:29] VITALS: BP 147/78
[2024-12-13] VITALS (16 sets, daily range): BP systolic 119–194; BP diastolic 47–100
[2024-12-13 05:53] LABS: BASOPHILS ABSOLUTE AUTO 0.08 K/mm3 (0.00-0.23); BASOPHILS PERCENT AUTO 0 % (0-2); EOSINOPHILS ABSOLUTE AUTO 0.70 K/mm3 (0.00-0.68); EOSINOPHILS PERCENT AUTO 3 % (0-6); Hematocrit 25.3 % (33.0-51.0); Hemoglobin 7.8 g/dL (11.5-16.0); IMMATURE GRAN ABSOLUTE AUTO 0.77 K/mm3 (0.00-0.10); IMMATURE GRAN PERCENT AUTO 4 % (0-1); LYMPHOCYTES ABSOLUTE AUTO 1.90 K/mm3 (0.84-5.20); LYMPHOCYTES PERCENT AUTO 9 % (21-46); MONOCYTES ABSOLUTE AUTO 1.20 K/mm3 (0.16-1.47); MONOCYTES PERCENT AUTO 5 % (4-13); Mean Corpuscular HGB Conc 30.8 g/dL (31.5-36.5); Mean Corpuscular Volume 99 fL (80-100); NEUTROPHILS ABSOLUTE AUTO 17.52 K/mm3 (1.96-9.15); NEUTROPHILS PERCENT AUTO 79 % (41-73); NRBC ABSOLUTE 0.00 K/mm3 (0.00-0.02); NRBC Auto 0.0 /100 WBC (0.0-0.2); Platelet Count 208 K/mm3 (150-400); RDW Coefficient Variation 15.3 % (11.7-14.2); RDW Standard Deviation 54.7 fL (35.1-46.3)
[2024-12-13 06:12] LABS: Albumin, Blood 1.8 g/dL (3.4-5.0); Anion Gap 8 mmol/L (3-11); Blood Urea Nitrogen 32 mg/dL (8-24); CO2, Blood 31 mmol/L (21-32); Calcium, Blood 7.0 mg/dL (8.5-10.1); Chloride, Blood 98 mmol/L (98-108); Creatinine, Blood 3.31 mg/dL (0.40-1.00); Glucose, Blood 173 mg/dL (70-99); Phosphorus, Blood 2.7 mg/dL (2.5-4.9); Potassium, Blood 3.8 mmol/L (3.5-5.5); Sodium, Blood 133 mmol/L (136-145)
--- NOTE | 2024-12-13 18:40 | NUR ---
End of shift note. Pt had a barium swallow this morning. Diet was increased. Pt tolerated the PO intake she was given. Tube feeding also continues. Pt continues to have loose stools. Pt has been repositioned as tolerated. Pt had dialysis this afternoon, which she tolerated well. Pt was updated to medical status without tele. Tele was removed. Pt is able to make needs known. Call light is within reach. Bed alarm is active.
[2024-12-14 00:22] VITALS: BP 135/61
--- NOTE | 2024-12-14 01:58 | NUR ---
PATIENT TRANSFERRED TO ROOM 340. REPORT GIVEN TO SHARONA FOR ASSUMPTION OF CARE.
[2024-12-14 02:12] VITALS: BP 145/74
--- NOTE | 2024-12-14 02:55 | NUR ---
PT ARRIVED TO THE MEDICAL FLOOR @0150. REPORT WAS RECEIVED FROM EXPORT FREIGHT SPECIALISTREAGAN YOO . ASSUMED CARE @0150. PT IS A/O X3-4, ABLE TO MAKE HER NEEDS KNOWN, COOPERATIVE WITH CARE. DOFF HOB IN PLACE, FEEDING @50MLS/HR. HOB ELEVATED. CHRONIC LIVE DRAINING YELLOW COLOR URINE. IN BEDREST, LIFT PT. O2 @2L VIA NASAL CANNULA, O2 SAT'S>99%. Q2HR TURNING IN BED. ATTENDS IN PLACE, INCONTINENT OF STOOL. PT RESTING W/O ACUTE DISTRESS, VSS. BED AT THE LOWEST POSITION, CALL LIGHT W/I REACH.
[2024-12-14 05:33] LABS: BASOPHILS ABSOLUTE AUTO 0.05 K/mm3 (0.00-0.23); BASOPHILS PERCENT AUTO 0 % (0-2); EOSINOPHILS ABSOLUTE AUTO 0.46 K/mm3 (0.00-0.68); EOSINOPHILS PERCENT AUTO 2 % (0-6); Hematocrit 24.9 % (33.0-51.0); Hemoglobin 7.6 g/dL (11.5-16.0); IMMATURE GRAN ABSOLUTE AUTO 0.51 K/mm3 (0.00-0.10); IMMATURE GRAN PERCENT AUTO 2 % (0-1); LYMPHOCYTES ABSOLUTE AUTO 1.63 K/mm3 (0.84-5.20); LYMPHOCYTES PERCENT AUTO 8 % (21-46); MONOCYTES ABSOLUTE AUTO 1.74 K/mm3 (0.16-1.47); MONOCYTES PERCENT AUTO 8 % (4-13); Mean Corpuscular HGB Conc 30.5 g/dL (31.5-36.5); Mean Corpuscular Volume 98 fL (80-100); NEUTROPHILS ABSOLUTE AUTO 16.60 K/mm3 (1.96-9.15); NEUTROPHILS PERCENT AUTO 79 % (41-73); NRBC ABSOLUTE 0.03 K/mm3 (0.00-0.02); NRBC Auto 0.1 /100 WBC (0.0-0.2); Platelet Count 219 K/mm3 (150-400); RDW Coefficient Variation 15.0 % (11.7-14.2); RDW Standard Deviation 54.5 fL (35.1-46.3)
[2024-12-14 05:55] LABS: Alanine Aminotransfer (ALT/SGP 24.0 U/L (12-78); Albumin, Blood 1.8 g/dL (3.4-5.0); Albumin/Globulin Ratio 0.4 (0.8-1.8); Anion Gap 8.0 mmol/L (3-11); Aspartate Aminotrans (AST/SGOT 21.0 U/L (12-37); Bilirubin, Total 0.4 mg/dL (0.1-1.0); Blood Urea Nitrogen 27.0 mg/dL (8-24); CO2, Blood 32.0 mmol/L (21-32); Calcium, Blood 7.6 mg/dL (8.5-10.1); Chloride, Blood 98.0 mmol/L (98-108); Creatinine, Blood 2.55 mg/dL (0.40-1.00); Globulin, Blood 4.2 g/dL (2.2-4.0); Glucose, Blood 164.0 mg/dL (70-99); Potassium, Blood 3.9 mmol/L (3.5-5.5); Prealbumin, Blood 18.2 mg/dL (20.0-40.0); Sodium, Blood 134.0 mmol/L (136-145); Total Protein, Blood 6.0 g/dL (6.4-8.2)
[2024-12-14] MEDS ORDERED: Albuterol 2.5 MG/3 ML VIAL INH PRN (07:25)
[2024-12-14 08:59] VITALS: BP 148/72
[2024-12-14] MEDS ORDERED: Ascorbic Acid 250 MG Chew PO SCH (09:00)
[2024-12-14] MEDS ORDERED: Polyethylene Glycol 3350 17 gm PO SCH (09:00)
[2024-12-14] MEDS ORDERED: CefTRIAXone Sodium 1,000 MG in NS 100 ML IV SCH (11:00)
[2024-12-14] MEDS ORDERED: Insulin Regular 100 UNIT/ML 10ML Vial SC SCH (11:30)
[2024-12-14] MEDS ORDERED: Heparin Sodium 5000 Units/ML 1ML MDV SC SCH (15:00)
[2024-12-14 16:21] VITALS: BP 151/87
--- NOTE | 2024-12-14 17:46 | NUR ---
PATIENT A/O. BEDFAST, Q2 TURNS. RIGHT SIDED WEAKNESS UNABLE TO MOVE SELF. VITALS STABLE, ON ROOM AIR. HEPARING STARTED PER ORDER. NG DC'D, POWERGLIDE DC'D. 22G IV IN RIGHT WRIST. FEEDING SELF WHILE MONITORED ON BITE SIZE. MINCED AND MOIST WITH NECTAR THICK LIQUID. CATH IN PLACE. BOWEL CARE HELD DUE TO MULTIPLE LOOSE STOOLS. PATIENT CALM AND HELPFUL WITH CARE. NO CONCERNS AT THIS TIME.
[2024-12-14 19:23] VITALS: BP 116/43
[2024-12-14] MEDS ORDERED: Insulin Glargine-Yfgn 100 Unit/mL 3 ML SYR SC SCH (21:00)
[2024-12-15] VITALS (18 sets, daily range): BP systolic 97–175; BP diastolic 45–98
--- NOTE | 2024-12-15 04:45 | NUR ---
AUTO GARAGE ATTENDANT SUMMARY VSS. ALERT AND ORIENTED X 4. 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 REPOSITIONED INTERMITTENTLY THROUGH NIGHT FOR COMFORT AND SKIN MAINTENANCE. INCONT A FEW TIMES, CLEANED AND LINEN CHANGED. O2 PER NC AT 2L/MIN. HOB ELEVATED FOR RESP COMFORT. THICKENED LIQUIDS AND MEDS GIVEN WITH APPLESAUCE TO PREVENT ASPIRATION. HAS BEEN RESTING QUIETLY WITH FEW INTERRUPTIONS OTHERWISE. CALL LIGHT IN REACH, RAILS UP X 2 AND BED IN LOW POSITION FOR SAFETY. WILL CONT TO MONITOR
[2024-12-15 05:59] LABS: Albumin, Blood 1.8 g/dL (3.4-5.0); Anion Gap 9 mmol/L (3-11); Blood Urea Nitrogen 50 mg/dL (8-24); CO2, Blood 29 mmol/L (21-32); Calcium, Blood 7.4 mg/dL (8.5-10.1); Chloride, Blood 99 mmol/L (98-108); Creatinine, Blood 3.64 mg/dL (0.40-1.00); Glucose, Blood 166 mg/dL (70-99); Phosphorus, Blood 3.9 mg/dL (2.5-4.9); Potassium, Blood 4.1 mmol/L (3.5-5.5); Sodium, Blood 133 mmol/L (136-145)
--- NOTE | 2024-12-15 07:08 | NUR ---
LIVE DRAINING - LIVE CARE DONE EARLIER. REPOSITIONED
[2024-12-15 07:17] LABS: BASOPHILS ABSOLUTE AUTO 0.05 K/mm3 (0.00-0.23); BASOPHILS PERCENT AUTO 0 % (0-2); EOSINOPHILS ABSOLUTE AUTO 0.44 K/mm3 (0.00-0.68); EOSINOPHILS PERCENT AUTO 3 % (0-6); Hematocrit 24.0 % (33.0-51.0); Hemoglobin 7.4 g/dL (11.5-16.0); IMMATURE GRAN ABSOLUTE AUTO 0.35 K/mm3 (0.00-0.10); IMMATURE GRAN PERCENT AUTO 2 % (0-1); LYMPHOCYTES ABSOLUTE AUTO 1.49 K/mm3 (0.84-5.20); LYMPHOCYTES PERCENT AUTO 9 % (21-46); MONOCYTES ABSOLUTE AUTO 1.32 K/mm3 (0.16-1.47); MONOCYTES PERCENT AUTO 8 % (4-13); Mean Corpuscular HGB Conc 30.8 g/dL (31.5-36.5); Mean Corpuscular Volume 98 fL (80-100); NEUTROPHILS ABSOLUTE AUTO 12.74 K/mm3 (1.96-9.15); NEUTROPHILS PERCENT AUTO 78 % (41-73); NRBC ABSOLUTE 0.00 K/mm3 (0.00-0.02); NRBC Auto 0.0 /100 WBC (0.0-0.2); Platelet Count 197 K/mm3 (150-400); RDW Coefficient Variation 14.7 % (11.7-14.2); RDW Standard Deviation 53.0 fL (35.1-46.3)
[2024-12-15 07:38] LABS: Alanine Aminotransfer (ALT/SGP 30.0 U/L (12-78); Albumin, Blood 1.8 g/dL (3.4-5.0); Albumin/Globulin Ratio 0.4 (0.8-1.8); Anion Gap 5.0 mmol/L (3-11); Aspartate Aminotrans (AST/SGOT 24.0 U/L (12-37); Bilirubin, Total 0.4 mg/dL (0.1-1.0); Blood Urea Nitrogen 50.0 mg/dL (8-24); CO2, Blood 29.0 mmol/L (21-32); Calcium, Blood 7.5 mg/dL (8.5-10.1); Chloride, Blood 100.0 mmol/L (98-108); Creatinine, Blood 3.83 mg/dL (0.40-1.00); Globulin, Blood 4.1 g/dL (2.2-4.0); Glucose, Blood 157.0 mg/dL (70-99); Potassium, Blood 4.0 mmol/L (3.5-5.5); Sodium, Blood 130.0 mmol/L (136-145); Total Protein, Blood 5.9 g/dL (6.4-8.2)
--- NOTE | 2024-12-15 16:51 | NUR ---
NO ACUTE CHANGES THIS SHIFT. PATIENT TOLERATING MODIFIED DIET, REQUIRES ASSISTANCE WITH MEALS. VSS, ON 2LO2 WHICH IS BASELINE. CONTINUES TO HAVE LOOSE STOOL, BOWEL CARE HELD. CHRONIC LIVE. TURNING Q2 HOURS. REDNESS/EXCORIATION TO BUTTOCKS/PERIAREA IMPRVING WITH USE OF BARRIER CREAM. ACHS BLOOD SUGARS, COVERAGE PER SLIDING SCALE. PATIENT IS COOPERATIVE WITH CARE AND ABLE TO MAKE NEEDS KNOWN.
--- NOTE | 2024-12-15 19:19 | NUR ---
ASSUMPTION OF CARE: THIS RN ASSUMED CARE OF PATIENT. ASLEEP DURING SHIFT CHANGE REPORT. LYING IN BED c HOB ELEVATED. BREATHING EVEN AND UNLABORED c 2LPM/NC. LIVE PATENT AND DRAINING YELLOW URINE TO GRAVITY. BED IN LOWEST POSITION. CALL LIGHT WITHIN REACH. ACUTE NEEDS MET.
[2024-12-16 04:03] VITALS: BP 148/75
[2024-12-16 05:51] LABS: BASOPHILS ABSOLUTE AUTO 0.05 K/mm3 (0.00-0.23); BASOPHILS PERCENT AUTO 0 % (0-2); EOSINOPHILS ABSOLUTE AUTO 0.14 K/mm3 (0.00-0.68); EOSINOPHILS PERCENT AUTO 1 % (0-6); Hematocrit 23.8 % (33.0-51.0); Hemoglobin 7.2 g/dL (11.5-16.0); IMMATURE GRAN ABSOLUTE AUTO 0.25 K/mm3 (0.00-0.10); IMMATURE GRAN PERCENT AUTO 2 % (0-1); LYMPHOCYTES ABSOLUTE AUTO 1.55 K/mm3 (0.84-5.20); LYMPHOCYTES PERCENT AUTO 12 % (21-46); MONOCYTES ABSOLUTE AUTO 1.22 K/mm3 (0.16-1.47); MONOCYTES PERCENT AUTO 9 % (4-13); Mean Corpuscular HGB Conc 30.3 g/dL (31.5-36.5); Mean Corpuscular Volume 98 fL (80-100); NEUTROPHILS ABSOLUTE AUTO 10.02 K/mm3 (1.96-9.15); NEUTROPHILS PERCENT AUTO 76 % (41-73); NRBC ABSOLUTE 0.00 K/mm3 (0.00-0.02); NRBC Auto 0.0 /100 WBC (0.0-0.2); Platelet Count 114 K/mm3 (150-400); RDW Coefficient Variation 15.0 % (11.7-14.2); RDW Standard Deviation 53.9 fL (35.1-46.3)
[2024-12-16 06:23] LABS: Alanine Aminotransfer (ALT/SGP 41 U/L (12-78); Albumin, Blood 1.8 g/dL (3.4-5.0); Albumin/Globulin Ratio 0.4 (0.8-1.8); Anion Gap 8 mmol/L (3-11); Aspartate Aminotrans (AST/SGOT 31 U/L (12-37); Bilirubin, Total 0.4 mg/dL (0.1-1.0); Blood Urea Nitrogen 34 mg/dL (8-24); CO2, Blood 30 mmol/L (21-32); Calcium, Blood 7.4 mg/dL (8.5-10.1); Chloride, Blood 104 mmol/L (98-108); Creatinine, Blood 2.87 mg/dL (0.40-1.00); Globulin, Blood 4.5 g/dL (2.2-4.0); Glucose, Blood 180 mg/dL (70-99); Phosphorus, Blood 2.1 mg/dL (2.5-4.9); Potassium, Blood 4.4 mmol/L (3.5-5.5); Sodium, Blood 138 mmol/L (136-145); Total Protein, Blood 6.3 g/dL (6.4-8.2)
--- NOTE | 2024-12-16 06:55 | NUR ---
END OF SHIFT SUMMARY: A&Ox4. PLEASANT AND COOPERATIVE WITH CARE. CALLS APPROPRIATELY AND IS ABLE TO ADVOCATE NEEDS EFFECTIVELY. CHRONIC LIVE SECONDARY TO NEUROGENIC BLADDER IS PATENT AND DRAINING YELLOW URINE TO GRAVITY. NO S/SX INFx TO PERMACATH SITE. BEDFAST THOUGH ABLE TO ADJUST SELF IN BED. MEDS WHOLE, EDG-VX-R-TIME WITH APPLESAUCE. NO C / O PAIN OR DISCOMFORT THIS SHIFT. SLEPT MAJORITY OF SHIFT. AM LABS COMPLETED. BED IN LOWEST POSITION, CALL LIGHT WITHIN REACH, ALL NEEDS MET. REPORT TO ONCOMING NURSE.
[2024-12-16 07:48] VITALS: BP 150/83
[2024-12-16] MEDS ORDERED: Vitamin B Cmplx/Vit C/Folic Ac 1 Tab PO SCH (09:00)
[2024-12-16 15:09] LABS: Hematocrit 25.8 % (33.0-51.0); Hemoglobin 7.7 g/dL (11.5-16.0)
[2024-12-16 15:47] VITALS: BP 144/76
--- NOTE | 2024-12-16 17:39 | NUR ---
SHIFT SUMMARY NO ACUTE CHANGES, A/Ox4, ABLE TO MAKE NEEDS KNOWN AND USING CALL SYSTEM APPROPRIATELY. TREATED FOR BACK PAIN PER EMAR. GOOD APPETITE. INSULIN ADMINISTERED PER ORDERED SLIDING SCALE. IV SALINE LOCKED. NO DIALYSIS TODAY, PLAN FOR TOMORROW. LOOSE STOOL X1, 1 SMEAR. LOTION APPLIED TO DRY ITCHY SKIN. LIVE PATENT AND DRAINING MINIMAL URINE - OLIGURIA RELATED TO DIALYSIS. CATHETER CARE COMPLETED PER UNIT PROTOCOL. PT CURRENTLY RESTING IN BED WITH BED IN LOWEST POSITION AND CALL LIGHT WITHIN REACH. SPOUSE AT BEDSIDE.
[2024-12-16 19:35] VITALS: BP 130/83
[2024-12-16 20:37] VITALS: BP 122/56
[2024-12-17] VITALS (20 sets, daily range): BP systolic 113–160; BP diastolic 62–109
--- NOTE | 2024-12-17 00:35 | NUR ---
SUMMARY: PT AOX4, REPO Q 2 HOURS, LIVE IN PLACE, ON RA. PT RECEIVED TYLENOL FOR LOWER BACK PAIN THIS SHIFT. CALL LIGHT WITHIN REACH AND BED IN LOW POSITION. REPORT GIVEN TO VINICIO KIRK DUE TO THIS RN BEING SENT HOME DUE TO LOW CENSUS.
[2024-12-17 05:58] LABS: BASOPHILS ABSOLUTE AUTO 0.04 K/mm3 (0.00-0.23); BASOPHILS PERCENT AUTO 0 % (0-2); EOSINOPHILS ABSOLUTE AUTO 0.16 K/mm3 (0.00-0.68); EOSINOPHILS PERCENT AUTO 1 % (0-6); Hematocrit 24.2 % (33.0-51.0); Hemoglobin 7.3 g/dL (11.5-16.0); IMMATURE GRAN ABSOLUTE AUTO 0.12 K/mm3 (0.00-0.10); IMMATURE GRAN PERCENT AUTO 1 % (0-1); LYMPHOCYTES ABSOLUTE AUTO 1.49 K/mm3 (0.84-5.20); LYMPHOCYTES PERCENT AUTO 13 % (21-46); MONOCYTES ABSOLUTE AUTO 1.07 K/mm3 (0.16-1.47); MONOCYTES PERCENT AUTO 9 % (4-13); Mean Corpuscular HGB Conc 30.2 g/dL (31.5-36.5); Mean Corpuscular Volume 97 fL (80-100); NEUTROPHILS ABSOLUTE AUTO 8.79 K/mm3 (1.96-9.15); NEUTROPHILS PERCENT AUTO 75 % (41-73); NRBC ABSOLUTE 0.00 K/mm3 (0.00-0.02); NRBC Auto 0.0 /100 WBC (0.0-0.2); Platelet Count 117 K/mm3 (150-400); RDW Coefficient Variation 14.7 % (11.7-14.2); RDW Standard Deviation 52.4 fL (35.1-46.3)
--- NOTE | 2024-12-17 06:01 | NUR ---
SHIFT SUMMARY ASSUMED CARE OF PT AT 0030. PT TURNED AND REPOSITIONED THROUGH THE NIGHT. SLEPT INTERMITTENTLY. INCONT OF LOOSE STOOL X1. MEDICATED FOR BACK PAIN WITH TYLENOL PER EMAR. PT ABLE TO TAKE IN SOME THICKENED LIQUIDS WITH SPOON AND TOOK MEDICATION 1 AT A TIME WITH APPLESAUCE. LIVE DRAINING SMALL AMOUNTS OF YELLOW URINE. PT FOR HD LATER TODAY.
[2024-12-17 06:38] LABS: Alanine Aminotransfer (ALT/SGP 49 U/L (12-78); Albumin, Blood 1.9 g/dL (3.4-5.0); Albumin/Globulin Ratio 0.4 (0.8-1.8); Anion Gap 9 mmol/L (3-11); Aspartate Aminotrans (AST/SGOT 35 U/L (12-37); Bilirubin, Total 0.5 mg/dL (0.1-1.0); Blood Urea Nitrogen 55 mg/dL (8-24); CO2, Blood 30 mmol/L (21-32); Calcium, Blood 7.8 mg/dL (8.5-10.1); Chloride, Blood 103 mmol/L (98-108); Creatinine, Blood 4.04 mg/dL (0.40-1.00); Globulin, Blood 4.5 g/dL (2.2-4.0); Glucose, Blood 176 mg/dL (70-99); Phosphorus, Blood 3.1 mg/dL (2.5-4.9); Potassium, Blood 4.8 mmol/L (3.5-5.5); Sodium, Blood 137 mmol/L (136-145); Total Protein, Blood 6.4 g/dL (6.4-8.2)
--- NOTE | 2024-12-17 09:01 | NUR ---
NOTE PT TRANSPORTED BY BED TO DIALYSIS. PT GOT AM MEDS. CONSTRUCTION EQUIPMENT OPERATOR REPORTED HOLD BLOOD PRESSURE LOWERING MEDS. CONSTRUCTION EQUIPMENT OPERATOR REPORTED GIVE RETACRIT POST DIALSIS.
--- NOTE | 2024-12-17 13:57 | NUR ---
NOTE PT HAD DIALYSIS THIS AM. PT BACK FROM DIALYSIS. THIS RN GAVE THE RETACRIT POST DIALYSIS PER RESEARCH INTERN.
--- NOTE | 2024-12-17 19:28 | NUR ---
SHIFT SUMMARY PT A&0X4. PT ADMITTED DUE TO [facility]. PT HAD DIALYSIS TODAY. PT REPORTED NAUSEA WHILE AT DIALYSIS TODAY, ZOFRAN GIVEN BY CASINO FLOOR SUPERVISOR, PT REPORTS NO NAUSEA POST DIALYSIS. PT REPORTS CHRONIC BACK PAIN, PAIN MANAGED PER EMAR. VSS. PT ON BEDREST. PT TURNED Q2. PT HAS CHRONIC LIVE. ORAL CARE COMPLETE. PT ACHS. PT HAS DYSPHAGIA PRECAUTIONS. NO STRAW. MIDLY THICK LIQUIDS. PT GETS MEDS ONE AT A TIME WITH APPLESAUCE. DR. BULLOCK ROUNDED ON PT TODAY, DISCUSSED DISCONTINUING LIVE POST DISCHARGE. REPORTED LEAVE IN FOR NOW. DR. MANLEY ORDERED DISCHARGE. PT BLOOD SUGAR DELAYED DUE TO AWAITING DISCHARGE. THIS RN WENT TO BREAK, BREAK RN TOOK OVER CARE. BREAK RN CORRECTED BLOOD SUGAR BASED ON LUNCH DOSE. EMAR REPORTS PT GOT ONE UNIT OF INSULIN FOR DINNER. TOLD SALT LIFTER. SALT LIFTER REPORTED TAKE BLOOD SUGAR BEFORE PT LEAVES AND SEND WITH A SNACK. NOTIFIED NIGHT RN. PT IN BED, BED IN LOWEST POSITION, CALL LIGHT IN REACH.
--- NOTE | 2024-12-18 02:10 | NUR ---
PT TRANSPORTED [facility]IA [facility] TO CARE FACILITY AT 2030 PT VITALS WERE WITHIN NORMAL LIMITS, PT APPEARED CALM AND RELAXED. PT BELONGINGS WERE TAKEN WITH PT. PT WAS NOT GIVEN HS MEDICATION WAS DC'D PRIOR TO PASS. REMAINING MEDICATION WAS RETURNED TO PHARM.
[2024-12-20] MEDS ORDERED: Ergocalciferol 50000 Intn'l Units PO SCH (09:00)
== END 2024-12-17 20:30 | disposition home health service (06) | DRG 673 ==
LOC: ER 11:43 → ICUE 17:00 → MEDS 17:00 → ICUE 17:47 → PCU 12-09 06:09 → MEDS 12-14 01:53 → ENPENDDIS 12-17 14:22 → MEDS 12-17 20:30
PROVIDERS: Emergency Medicine; Hospitalist; Internal Medicine Critical Care Medicine; Internal Medicine Nephrology; Student in an Organized Health Care Education/Training Program; ADMIT Internal Medicine
PROC: 3E03329 Introduction of Other Anti-infective into Peripheral Vein, Percutaneous Approach (ICD-10-PCS; 2024-12-05)
PROC: 06HY33Z Insertion of Infusion Device into Lower Vein, Percutaneous Approach (ICD-10-PCS; 2024-12-05)
PROC: B54CZZA Ultrasonography of Left Lower Extremity Veins, Guidance (ICD-10-PCS; 2024-12-05)
PROC: B548ZZA Ultrasonography of Superior Vena Cava, Guidance (ICD-10-PCS; principal; 2024-12-09)
PROC: 5A1D70Z Performance of Urinary Filtration, Intermittent, Less than 6 Hours Per Day (ICD-10-PCS; principal; 2024-12-09)
PROC: 02HV33Z Insertion of Infusion Device into Superior Vena Cava, Percutaneous Approach (ICD-10-PCS; principal; 2024-12-09)
PROC: B518ZZA Fluoroscopy of Superior Vena Cava, Guidance (ICD-10-PCS; principal; 2024-12-09)
PROC: 0JH63XZ Insertion of Tunneled Vascular Access Device into Chest Subcutaneous Tissue and Fascia, Percutaneous Approach (ICD-10-PCS; principal; 2024-12-09)
PROC: 30233N1 Transfusion of Nonautologous Red Blood Cells into Peripheral Vein, Percutaneous Approach (ICD-10-PCS; 2024-12-09)
PROC: 0DH67UZ Insertion of Feeding Device into Stomach, Via Natural or Artificial Opening (ICD-10-PCS; 2024-12-10)
DX: N17.9 Acute kidney failure, unspecified (principal); E43 Unspecified severe protein-calorie malnutrition; G92.8 Other toxic encephalopathy; J18.9 Pneumonia, unspecified organism; R57.0 Cardiogenic shock; G93.49 Other encephalopathy; N39.0 Urinary tract infection, site not specified; I12.0 Hypertensive chronic kidney disease with stage 5 chronic kidney disease or end stage renal disease; E87.20 Acidosis, unspecified; I48.20 Chronic atrial fibrillation, unspecified; Z68.1 Body mass index [BMI] 19.9 or less, adult; J90 Pleural effusion, not elsewhere classified; I69.351 Hemiplegia and hemiparesis following cerebral infarction affecting right dominant side; T82.838A Hemorrhage due to vascular prosthetic devices, implants and grafts, initial encounter; N18.5 Chronic kidney disease, stage 5; L89.151 Pressure ulcer of sacral region, stage 1; Z74.01 Bed confinement status; Z66 Do not resuscitate; Z99.3 Dependence on wheelchair; Z99.2 Dependence on renal dialysis; D63.1 Anemia in chronic kidney disease; E87.5 Hyperkalemia; E83.51 Hypocalcemia; E83.39 Other disorders of phosphorus metabolism; E87.6 Hypokalemia; L30.8 Other specified dermatitis; L65.9 Nonscarring hair loss, unspecified; M24.573 Contracture, unspecified ankle; E11.65 Type 2 diabetes mellitus with hyperglycemia; E11.649 Type 2 diabetes mellitus with hypoglycemia without coma; E11.22 Type 2 diabetes mellitus with diabetic chronic kidney disease; B37.2 Candidiasis of skin and nail; E78.5 Hyperlipidemia, unspecified; G43.909 Migraine, unspecified, not intractable, without status migrainosus; Z98.51 Tubal ligation status; Z90.49 Acquired absence of other specified parts of digestive tract; Z98.890 Other specified postprocedural states; Z79.899 Other long term (current) drug therapy; Z79.4 Long term (current) use of insulin; Z91.048 Other nonmedicinal substance allergy status; Y84.1 Kidney dialysis as the cause of abnormal reaction of the patient, or of later complication, without mention of misadventure at the time of the procedure
CPT/HCPCS: 31720; 36415; 36430; 36556; 36558; 70450; 71045; 74230; 76937; 77001; 80048; 80053; 80069; 80074; 81001; 82306; 82330; 82533; 82728; 82947; 83540; 83550; 83605; 83735; 83970; 84100; 84134; 84145; 85014; 85018; 85025; 85045; 85520; 85610; 85730; 86480; 86704; 86850; 86900; 86901; 86923; 87040; 87086; 87340; 92526; 92610; 92611; 93005; 93010; 94664; 94760; 94762; 96361; 96365; 96368; 96375; 99285-25; A9270; C1750; C1751; C1752; C1769; C1894; J0612; J0696; J1644; J1720; J1815; J2405; J3475; J3480; J7030; J7040; J7050; J7070; J7799; P9016; Q5106